=== PATIENT | female | born 1950 | race Caucasian/White ===

== ENCOUNTER 2017-04-16 11:59 | Emergency (ER) | payer MEDICARE, SELFPAY | END 2017-04-16 14:15 | disposition home or self-care (01) | PROVIDERS: Emergency Provider Emergency Medicine; Family Provider Internal Medicine Adolescent Medicine; Visit Provider Emergency Medicine | DX: R55 Syncope and collapse (principal); I10 Essential (primary) hypertension; I25.10 Atherosclerotic heart disease of native coronary artery without angina pectoris; J44.9 Chronic obstructive pulmonary disease, unspecified; Z72.0 Tobacco use; Z79.899 Other long term (current) drug therapy | CPT/HCPCS: 70450; 71020; 80053; 81001; 84484; 85025; 93005; 93041; 96365; 99285 ==

== ENCOUNTER → 2017-04-16 | Outpatient (CLI) | payer MEDICARE, SELFPAY | PROVIDERS: Family Provider Internal Medicine Adolescent Medicine; Visit Provider Internal Medicine Adolescent Medicine | DX: R60.0 Localized edema (principal) | CPT/HCPCS: 93971 ==

== ENCOUNTER → 2017-05-19 11:51 | Outpatient (CLI) | payer MEDICARE, SELFPAY ==
[2017-05-19 13:58] LABS: Thyroid Stimulating Hormone 0.89 uIU/ml (0.358-3.740); Triiodothryronine (T3) Uptake 33 % (31-39)
== END ==
PROVIDERS: Family Provider Internal Medicine Adolescent Medicine; PCP Internal Medicine Adolescent Medicine; Visit Provider Physician Assistant
DX: I25.10 Atherosclerotic heart disease of native coronary artery without angina pectoris (principal); K21.9 Gastro-esophageal reflux disease without esophagitis; K27.9 Peptic ulcer, site unspecified, unspecified as acute or chronic, without hemorrhage or perforation; E78.5 Hyperlipidemia, unspecified
CPT/HCPCS: 36415; 84436; 84443; 84479

== ENCOUNTER → 2017-09-28 10:47 | Outpatient (CLI) | payer MEDICARE, SELFPAY ==
[2017-09-28 13:30] LABS: Basophils % 0.5 % (0.1-2.0); Eosinophils # 0.2 K/mm3 (0.0-0.4); Eosinophils % 3.4 % (0.1-12.0); Hematocrit 47.5 % (37.0-47.0); Hemoglobin 14.5 g/dL (12.2-16.2); Lymphocytes # 1.2 K/mm3 (0.7-4.5); Lymphocytes % 20.7 K/mm3 (10-50); Mean Corpuscular HGB Conc 30.6 g/dL (31.8-35.4); Mean Corpuscular Hemoglobin 30.1 pg (27.0-31.2); Mean Corpuscular Volume 98.4 fl (81-99); Mean Platelet Volume 7.2 fl (7.4-10.4); Monocytes # 0.3 K/mm3 (0.1-1.0); Monocytes % 5.6 % (1.7-9.3); Neutrophils % 69.9 % (37.0-80.0); Platelet Count 224 K/mm3 (142-424); Red Blood Count 4.83 M/mm3 (4.20-5.40); Red Cell Distribution Width 13.2 % (11.5-17.5); White Blood Count 5.8 K/mm3 (4.8-10.8)
[2017-09-28 13:43] LABS: Alanine Aminotransferase 17 U/L (12-78); Albumin Level 3.8 gm/dL (3.4-5.0); Alkaline Phosphatase 105 U/L (46-116); Anion Gap 11.4 mEq/L (5-15); Aspartate Amino Transferase 13 U/L (15-37); Bilirubin,Total 0.5 mg/dL (0.2-1.0); Blood Urea Nitrogen 20 mg/dL (7-18); Calcium 9.5 mg/dL (8.5-10.1); Carbon Dioxide 29 mmol/L (21.0-32.0); Chloride 102 mmol/L (98-107); Chol/HDL Ratio 2.3 (1-3.5); Cholesterol 135 mg/dL (140-200); Creatinine,Serum 0.86 mg/dL (0.55-1.02); Estimated Glomerular Filt Rate 66 ml/min (>60); GFR (African American) 79 ML/MIN (>60); Globulin 3.7 gm/dl (1.3-3.2); Glucose 103 mg/dL (74-106); HDL Cholesterol 59 mg/dL (29-89); LDL Cholesterol 62 mg/dL (0-130); Potassium 4.4 mmoL/L (3.5-5.1); Sodium 138 mmol/L (136-145); Thyroid Stimulating Hormone 1.02 uIU/ml (0.358-3.740); Total Protein,Serum 7.5 gm/dL (6.4-8.2); Triglycerides 72 mg/dL (30-200); VLDL Cholesterol 14 mg/dL (0-40)
== END ==
PROVIDERS: Visit Provider Internal Medicine Adolescent Medicine
DX: I25.10 Atherosclerotic heart disease of native coronary artery without angina pectoris (principal); R53.81 Other malaise; R10.84 Generalized abdominal pain
CPT/HCPCS: 36415; 80053; 80061; 84443; 85025

== ENCOUNTER → 2017-10-07 08:58 | Outpatient (CLI) | payer MEDICARE, SELFPAY ==
--- NOTE | 2017-10-07 08:59 | CT_ITS ---
CT abdomen pelvis w con CLINICAL INDICATION: ITS.REASON: Generalized abdominal pain ORDERING PHYSICIAN: Bernard Farrell MD PATIENT AGE: 67 years COMPARISON: None TECHNIQUE: Axial images obtained with sagittal and coronal reformats. All CT scans at the facility use one or more dose reduction, viz: automated exposure control; ma/kV adjustment per patient size (including targeted exams where dose is matched to indication; i.e. head); or iterative reconstruction technique. PROCEDURE: Oral Contrast: Redicat IV Contrast: 75 mL's of Isovue-370. FINDINGS: Lung bases are clear. The liver, spleen, adrenal glands, gallbladder, pancreas, and kidneys have an unremarkable appearance. Unremarkable appearing appendix. No intestinal obstruction or free air. No evidence of diverticulitis or appendicitis there are a few colonic diverticula. No pelvic mass or focal inflammatory change. There has been a prior hysterectomy. No abnormal fluid collections. Atheromatous changes of the aortoiliac vessels without evidence of aneurysm. Mild degenerative changes lumbar spine with grade 1 nonspondylolytic spondylolisthesis of L4 on L5 facet arthritic changes at that level and also at L5-S1. IMPRESSION: No acute abdominal or pelvic findings.
== END ==
PROVIDERS: Family Provider Internal Medicine Adolescent Medicine; PCP Internal Medicine Adolescent Medicine; Visit Provider Surgery
DX: R10.9 Unspecified abdominal pain (principal)
CPT/HCPCS: 74177; Q9967

== ENCOUNTER → 2017-10-12 08:47 | Outpatient (CLI) | payer MEDICARE, SELFPAY ==
--- NOTE | 2017-10-12 08:48 | US_ITS ---
US gallbladder HISTORY: Nausea and pain ITS.REASON: Nausea ORDERING PHYSICIAN: Bernard Farrell MD PATIENT AGE: 67 years Comparison: None FINDINGS: PANCREAS: Unremarkable. No obvious mass or abnormal fluid collection. No ductal dilatation LIVER: No focal liver lesions demonstrated. Homogeneous echogenicity. No intrahepatic biliary ductal dilatation evident RIGHT KIDNEY: Unremarkable. Normal size and echogenicity. No hydronephrosis GALLBLADDER: No gallstones, gallbladder wall thickening, pericholecystic fluid, or biliary dilatation. IMPRESSION: Negative gallbladder/right upper quadrant ultrasound
== END ==
PROVIDERS: Family Provider Internal Medicine Adolescent Medicine; PCP Internal Medicine Adolescent Medicine; Visit Provider Surgery
DX: R10.9 Unspecified abdominal pain (principal); R11.0 Nausea
CPT/HCPCS: 76705

== ENCOUNTER 2018-05-21 15:24 | Observation (INO) ==
--- NOTE | 2018-05-21 17:08 | History & Physical Report ---
*Admission Date: 05/21/18 *Chief complaint: Shortness of breath, weakness and urinary frequency *History of present illness: 68 year old female with a history of CAD, HTN, COPD, anxiety and hyperlipidemia presented to PCP office with shortness of breath, weakness, dizziness and urinary frequency. Patient was treated for COPD exac with Levaquin and prednisone approx one month ago. She reports shortness of breath and cough have not improved and have worsened over the last week. Oral intake has been decrea sed. Patient states she began having urinary frequency and "strong smelling urine" a few days ago. No fevers. + loss of appetite, minimal oral intake the last few day. + nausea, no vomiting or diarrhea. In the office, she was found to be orthostatic, sitting SBP 78 with dry oral membranes. Saturations 92% on room. Urinalysis + for UTI. Patient was admitted for IV antibiotics, IVF's and further evaluation. [facility] History I have reviewed the patient's past medical history: Yes Medical History: Reports:: Anxiety, Chronic Obstructive Pulmonary Disease (COPD), Coronary Artery Disease, Cerebrovascular Accident, Depression, Hyperlipidemia, Hypertension, Lung Disease Denies:: Diabetes Mellitus Type 1, Diabetes Mellitus Type 2, Internal Pacemaker, Seizures Have you ever received a pneumonia vaccine?: No Have you received a flu vaccine this season?: No Other Medical History: Reports: Arthritis, Other Other Surgeries: Yes: Colonoscopy (11/17/17), EGD (11/17/17), Hysterectomy-Total, Other. No: Pacemaker Amputation: No Fractures: No - *Social History Smoking Status: Current every day smoker Tobacco Type: cigarettes # Packs/Day (cigarettes): 1 Alcohol Intake: never Alcohol Intake Frequency:: other Substance Use Type: denies use Travel in the last 8 weeks: None - Psychiatric History Expresses thoughts of harming self/others: None Pschychiatric History:: Reports:: Anxiety, Depression *Family Hx:: Non-contributory Review of Systems - Review of Systems Review of systems:: pertinent systems reviewed and negative unless documented below - Constitutional Reports malaise, Reports weakness - *Respiratory Reports chest congestion, Reports cough, Reports shortness of breath, Reports wheezing - *Gastrointestinal Reports nausea - *Genitourinary Reports urinary urgency, Reports other (urinary frequency) Meds Home Medications Medication Instructions Recorded Confirmed Type alprazolam 1 mg tablet 1 mg PO TID tab 05/18/17 11/17/17 History aspirin 81 mg tablet,delayed 81 mg PO QDAY 05/18/17 11/17/17 History release duloxetine 30 mg capsule,delayed 30 mg PO QDAY 05/18/17 11/17/17 History release lisinopril 5 mg tablet 5 mg PO QDAY 05/18/17 11/17/17 History trazodone 150 mg tablet 150 mg PO QHS 05/18/17 11/17/17 History Amlodipine Besylate [Norvasc 5mg 5 mg PO QDAY 11/17/17 11/17/17 History tablet] Atorvastatin Calcium [Lipitor 40mg 40 mg PO QDAY 11/17/17 11/17/17 History Tablet] omeprazole 40 mg capsule,delayed 40 mg PO DAILY #90 cap 12/07/17 Rx release ranolazine ER 500 mg 500 mg PO BID #60 tab 12/22/17 Rx tablet,extended release,12 hr clopidogrel 75 mg tablet 75 mg PO QDAY #30 tab 02/03/18 Rx Allergies Allergy/AdvReac Type Severity Reaction Status Date / Time promethazine Allergy Unknown Verified 11/17/17 12:13 Exam Narrative: ALert and oriented x 3. Rate and rhythm regular. No LE edema. Lung sounds with crackles LLL. Abdomen soft and nontender. + CVA tenderness. ENT- mucous membranes dry. + orthostasis. No acute neuro deficits. SKin pink, warm and dry Assessment and Plan (1) COPD exacerbation Current visit: Yes Status: Acute Category: Medical Code(s): J44.1 - Chronic obstructive pulmonary disease with (acute) exacerbation (2) Hypertensive disorder Current visit: No Status: Chronic Qualifiers: Category: Medical Code(s): I10 - Essential (primary) hypertension (3) UTI (urinary tract infection) Current visit: Yes Status: Acute Category: Medical Code(s): N39.0 - Urinary tract infection, site not specified - Assessment and plan all Dx Assessment and Plan for all problems:: Admit to medsurg on CAP protocol with ceftriaxone and azithromycin which will cover UTI, as well. Mcgregor cultures ordered. Will evaluate labs. Bolus with normal saline for orthostasis. Hold antihypertensives.
[2018-05-21 18:36] LABS: Basophils % 0.6 % (0.1-2.0); Eosinophils # 0.1 K/mm3 (0.0-0.4); Eosinophils % 0.9 % (0.1-12.0); Hematocrit 40.5 % (37.0-47.0); Hemoglobin 12.7 g/dL (12.2-16.2); Lymphocytes # 1.8 K/mm3 (0.7-4.5); Lymphocytes % 24.9 % (10-50); Mean Corpuscular HGB Conc 31.4 g/dL (31.8-35.4); Mean Corpuscular Hemoglobin 31.2 pg (27.0-31.2); Mean Corpuscular Volume 99.3 fl (81-99); Mean Platelet Volume 7.3 fl (7.4-10.4); Monocytes # 0.6 K/mm3 (0.1-1.0); Monocytes % 8.5 % (1.7-9.3); Neutrophils # 4.8 K/mm3 (1.8-7.8); Neutrophils % 65.1 % (37.0-80.0); Platelet Count 225 K/mm3 (142-424); Red Blood Count 4.08 M/mm3 (4.20-5.40); Red Cell Distribution Width 12.7 % (11.5-17.5); White Blood Count 7.4 K/mm3 (4.8-10.8)
[2018-05-21 18:46] LABS: Albumin Level 3.1 gm/dL (3.4-5.0); Albumin/Globulin Ratio 0.7 (1.1-1.8); Bilirubin,Total 0.5 mg/dL (0.2-1.0); Globulin 4.4 gm/dl (1.3-3.2); Total Protein,Serum 7.5 gm/dL (6.4-8.2)
[2018-05-22 06:19] LABS: Basophils % 0.5 % (0.1-2.0); Eosinophils # 0.1 K/mm3 (0.0-0.4); Hematocrit 38.5 % (37.0-47.0); Hemoglobin 11.9 g/dL (12.2-16.2); Lymphocytes # 1.7 K/mm3 (0.7-4.5); Mean Corpuscular HGB Conc 30.8 g/dL (31.8-35.4); Mean Corpuscular Hemoglobin 31.6 pg (27.0-31.2); Mean Corpuscular Volume 102.5 fl (81-99); Monocytes # 0.6 K/mm3 (0.1-1.0); Monocytes % 9.2 % (1.7-9.3); Neutrophils # 3.9 K/mm3 (1.8-7.8); Neutrophils % 61.4 % (37.0-80.0); Platelet Count 183 K/mm3 (142-424); Red Blood Count 3.76 M/mm3 (4.20-5.40); Red Cell Distribution Width 12.8 % (11.5-17.5); White Blood Count 6.3 K/mm3 (4.8-10.8)
[2018-05-22 06:41] LABS: Albumin Level 2.6 gm/dL (3.4-5.0); Albumin/Globulin Ratio 0.7 (1.1-1.8); Anion Gap 11.3 mEq/L (5-15); Bilirubin,Total 0.4 mg/dL (0.2-1.0); Calcium 8.6 mg/dL (8.5-10.1); Globulin 3.9 gm/dl (1.3-3.2); Potassium 4.3 mmoL/L (3.5-5.1); Total Protein,Serum 6.5 gm/dL (6.4-8.2)
--- NOTE | 2018-05-22 08:22 | Progress Note ---
Internal Medicine - PN: Subj *Date: 05/22/18 *Time: 08:19 Interval history: Feels a little better than she did yesterday evening. Her blood pressure has improved slightly. She is alert. Oriented x3. Has eaten some breakfast and drank coffee. She had an episode last night after a DuoNeb treatment with upper lip tingling and numbness that was symmetric. We changed nebulizer treatments to Xopenex. She now reports that she has a tingling sensation over the entire upper half of her face, symmetric from right to left. Denies swallowing problems, visual problems or hearing problems. Exam Vital signs and Labs for Last 24 Hours: Temp Pulse Resp BP Pulse Ox 98.0 F 94 H 18 105/58 L 90 L 05/22/18 07:33 05/22/18 07:33 05/22/18 07:33 05/22/18 07:33 05/22/18 07:33 Laboratory Results - last 24 hr 05/21/18 18:17: WBC 7.4, RBC 4.08 L, Hgb 12.7, Hct 40.5, MCV 99.3 H, MCH 31.2, MCHC 31.4 L, RDW 12.7, Plt Count 225, MPV 7.3 L, Neut % (Auto) 65.1, Lymph % (Auto) 24.9, Gage % (Auto) 8.5, Eos % (Auto) 0.9, Baso % (Auto) 0.6, Neut # (Auto) 4.8, Lymph # (Auto) 1.8, Gage # (Auto) 0.6, Eos # (Auto) 0.1, Baso # (Auto) 0.0 05/21/18 18:17: Sodium 133 L, Potassium 4.0, Chloride 97 L, Carbon Dioxide 28, Anion Gap 12.0, BUN 22 H, Creatinine 1.09 H, Estimated Creat Clear 62, Estimated GFR 50 L, Est GFR ( Amer) 60, Glucose 108 H, Calcium 9.0, Total Bilirubin 0.5, AST 17, ALT 19, Alkaline Phosphatase 92, Total Protein 7.5, Albumin 3.1 L, Globulin 4.4 H, Albumin/Globulin Ratio 0.7 L 05/22/18 06:11: WBC 6.3, RBC 3.76 L, Hgb 11.9 L, Hct 38.5, MCV 102.5 H, MCH 31.6 H, MCHC 30.8 L, RDW 12.8, Plt Count 183, MPV 8.0, Neut % (Auto) 61.4, Lymph % (Auto) 27.0, Gage % (Auto) 9.2, Eos % (Auto) 2.0, Baso % (Auto) 0.5, Neut # (Auto) 3.9, Lymph # (Auto) 1.7, Gage # (Auto) 0.6, Eos # (Auto) 0.1, Baso # (Auto) 0.0 05/22/18 06:11: Sodium 138, Potassium 4.3, Chloride 103, Carbon Dioxide 28, Anion Gap 11.3, BUN 13 D, Creatinine 0.79 D, Estimated Creat Clear 67, Estimated GFR 72, Est GFR ( Amer) 87 D, Glucose 123 H, Calcium 8.6, Total Bilirubin 0.4, AST 13 L, ALT 16, Alkaline Phosphatase 78, Total Protein 6.5, Albumin 2.6 L D, Globulin 3.9 H, Albumin/Globulin Ratio 0.7 L I & O for Last 24 hours: Intake & Output 05/19/18 05/20/18 05/21/18 05/22/18 11:59 11:59 11:59 11:59 Intake Total 240 / 240 Balance 240 / 240 Weight 176 lb 6 oz Microbiology Reports for the Last 24 Hours: Microbiology 05/21/18 19:50 Sputum - Expectorated Sputum Gram Stain - Final Narrative: Is awake. Alert. Oriented x3, up on the side of the bed. Vital signs reviewed. Cranial nerves are intact bilaterally including extraocular motions, pupillary reactivity and facial grimacing and all 3 facial nerve branches are symmetrically functioning. Lungs have good air movement, some wheezing and rhonchi that scattered throughout, especially in both bases. Heart rate regular. She has trace ankle edema at baseline. Abdomen is soft and nontender. She has no skin rash. She able to move arms and legs well and symmetrically in the extremities. Assessment and Plan (1) COPD exacerbation Current visit: Yes Status: Acute Category: Medical Code(s): J44.1 - Chronic obstructive pulmonary disease with (acute) exacerbation Overall improving. Changed to Xopenex treatments. Await culture results. Continue current broad-spectrum antibiotics. Add steroids for the wheezing component (2) Hypertensive disorder Current visit: No Status: Chronic Qualifiers: Category: Medical Code(s): I10 - Essential (primary) hypertension Blood pressure has improved with fluids. Continue to hold antihypertensives. (3) UTI (urinary tract infection) Current visit: Yes Status: Acute Category: Medical Code(s): N39.0 - Urinary tract infection, site not specified Continue antibiotics. Culture from office pending (4) Tingling sensation in face Current visit: Yes Status: Acute Category: Medical Code(s): R20.2 - Paresthesia of skin Does not seem to be neurologic. Magnesium supplementation intravenously. Continue treatment of underlying medical conditions.
[2018-05-22 09:19] LABS: Microscopic, Urine URINE MICROSCOPIC (MICROSCOPIC)
[2018-05-22 09:21] LABS: Appearance,Urine CLEAR (Clear); Bilirubin,Urine Negative (Negative); Blood, Urine TRACE-I (Negative); Color,Urine YELLOW (Yellow); Glucose,Urine (UA) Negative (Negative); Ketones,Urine Negative (Negative); Leukocyte Esterase,Urine Negative (Negative); Protein,Urine Negative (Negative); Specific Gravity, Urine <= 1.005 (1.005-1.030)
[2018-05-22 10:06] LABS: Bacteria,Urine Trace /lpf; RBC,Urine Occasional #/hpf (0-3)
--- NOTE | 2018-05-22 11:00 | Pharmacy Consult Notes ---
[facility] Pharmacy VTE Monitoring - Patient Demographics Admission date: 05/21/18 Report Date: 05/22/18 Time: 11:00 Allergies/Adverse Reactions: Patient Allergies promethazine Allergy (Unknown, Verified 11/17/17 12:13) Height: 1.75 m Weight: 80.002 kg Patient Problems: Current Active Problems COPD exacerbation (Acute) UTI (urinary tract infection) (Acute) Tingling sensation in face (Acute) - VTE Risk Labs: VTE Related Lab Results Hgb 11.9 g/dL (12.2-16.2) L 05/22/18 06:11 Hct 38.5 % (37.0-47.0) 05/22/18 06:11 Plt Count 183 K/mm3 (142-424) 05/22/18 06:11 BUN 13 mg/dL (7-18) D 05/22/18 06:11 Creatinine 0.79 mg/dL (0.55-1.02) D 05/22/18 06:11 Estimated Creat Clear 67 mL/min (50-200) 05/22/18 06:11 Was VTE Risk Assessment Performed: Yes VTE Score: 3 VTE Risk Level: Low Risk - Prophylaxis VTE Prophylaxis Ordered?: Yes Types of VTE Prophylaxis: TEDS Knee High Location of Applied Device: Bilateral Lower Extremeties
[2018-05-23 06:20] LABS: Basophils % 0.1 % (0.1-2.0); Hematocrit 37.2 % (37.0-47.0); Hemoglobin 11.6 g/dL (12.2-16.2); Lymphocytes # 0.7 K/mm3 (0.7-4.5); Lymphocytes % 10.9 % (10-50); Mean Corpuscular HGB Conc 31.1 g/dL (31.8-35.4); Mean Corpuscular Hemoglobin 31.3 pg (27.0-31.2); Mean Corpuscular Volume 100.6 fl (81-99); Mean Platelet Volume 7.6 fl (7.4-10.4); Monocytes # 0.2 K/mm3 (0.1-1.0); Neutrophils # 5.7 K/mm3 (1.8-7.8); Platelet Count 182 K/mm3 (142-424); Red Blood Count 3.69 M/mm3 (4.20-5.40); Red Cell Distribution Width 12.6 % (11.5-17.5); White Blood Count 6.6 K/mm3 (4.8-10.8)
[2018-05-23 06:32] LABS: Hypochromasia 1+; Lymphocytes % 7 % (10-50); Macrocytosis 1+; Monocytes % 2 % (2-9); Neutrophils % 83 % (42-76); Total Cells Counted 100
[2018-05-23 06:36] LABS: Albumin Level 2.3 gm/dL (3.4-5.0); Albumin/Globulin Ratio 0.6 (1.1-1.8); Anion Gap 10.8 mEq/L (5-15); Bilirubin,Total 0.2 mg/dL (0.2-1.0); Calcium 9.2 mg/dL (8.5-10.1); Globulin 3.7 gm/dl (1.3-3.2); Potassium 4.8 mmoL/L (3.5-5.1)
--- NOTE | 2018-05-23 08:47 | Progress Note ---
Internal Medicine - PN: Subj *Date: 05/23/18 *Time: 08:44 Interval history: Patient feels somewhat better, but continues to be orthostatic when she stands up according to her report. No orthostatic vital signs are documented this morning. She also continues to have an oxygen requirement for O2 saturations of 89% on room air. She also states that the facial numbness that I discussed yesterday has not gone away and that it spread now symmetrically up into her scalp and she feels like her hair is "floating." She also notes that she is very concerned about the chest pressure feeling that she had when she was coughing and wonders about seeing cardiology. Exam Vital signs and Labs for Last 24 Hours: Temp Pulse Resp BP Pulse Ox 97.8 F 89 20 140/82 90 L 05/23/18 04:00 05/23/18 06:21 05/23/18 04:00 05/23/18 04:00 05/23/18 06:21 Laboratory Results - last 24 hr 05/22/18 09:15: Urine Color Yellow, Urine Appearance Clear, Urine pH 6.0, Ur Specific [place] <= 1.005, Urine Protein Negative, Urine Glucose (UA) Negative, Urine Ketones Negative, Urine Blood Trace-i, Urine Nitrate Negative, Urine Bilirubin Negative, Urine Urobilinogen 1.0, Ur Leukocyte Esterase Negative, Urine RBC Occasional, Urine WBC 3-5, Ur Squamous Epith Cells 3-5, Urine Bacteria Trace 05/23/18 06:09: WBC 6.6, RBC 3.69 L, Hgb 11.6 L, Hct 37.2, MCV 100.6 H, MCH 31.3 H, MCHC 31.1 L, RDW 12.6, Plt Count 182, MPV 7.6, Neut % (Auto) 86.0 H, Lymph % (Auto) 10.9, [place] % (Auto) 3.0, Eos % (Auto) 0.0 L, Baso % (Auto) 0.1, Neut # (Auto) 5.7, Lymph # (Auto) 0.7, [place] # (Auto) 0.2, Eos # (Auto) 0.0, Baso # (Auto) 0.0, Total Counted 100, Neutrophils % (Manual) 83 H, Band Neutrophils % 8.0, Lymphocytes % (Manual) 7 L, Monocytes % (Manual) 2, Platelet Estimate Normal, Hypochromasia 1+, Macrocytosis 1+ 05/23/18 06:09: Sodium 140, Potassium 4.8, Chloride 105, Carbon Dioxide 29, Anion Gap 10.8, BUN 19 H D, Creatinine 0.96 D, Estimated Creat Clear 67, Estimated GFR 58 L, Est GFR ( Amer) 70, Glucose 167 H D, Calcium 9.2, Total Bilirubin 0.2, AST 24 D, ALT 31 D, Alkaline Phosphatase 82, Total Protein 6.0 L, Albumin 2.3 L D, Globulin 3.7 H, Albumin/Globulin Ratio 0.6 L I & O for Last 24 hours: Intake & Output 05/20/18 05/21/18 05/22/18 05/23/18 11:59 11:59 11:59 11:59 Intake Total 720 / 720 240 / 240 Output Total 300 / 300 400 / 400 Balance 420 / 420 -160 / -160 Weight 176 lb 6 oz Microbiology Reports for the Last 24 Hours: Microbiology 05/21/18 19:50 Sputum - Expectorated Sputum Gram Stain - Final 05/21/18 19:50 Sputum - Expectorated Sputum Sputum Culture - Final Normal Respiratory Chrystal Narrative: Patient is alert, oriented x3. No neurologic deficiencies in her cranial nerves whatsoever, they are symmetric and normal. Sensation to light touch is normal. She moves all extremities well. Heart rate regular. Lungs have rhonchi in the upper lung regal[place] but good air movement. O2 saturations are in the high 80% range on room air according to documentation. Abdomen soft and nontender. No edema or clubbing. Assessment and Plan (1) COPD exacerbation Current visit: Yes Status: Acute Category: Medical Code(s): J44.1 - Chronic obstructive pulmonary disease with (acute) exacerbation Overall improving. O2 requirement continues. Recheck chest x-ray today. Sputum culture nondiagnostic (2) Hypertensive disorder Current visit: No Status: Chronic Qualifiers: Category: Medical Code(s): I10 - Essential (primary) hypertension Blood pressure is normalized at rest off blood pressure medication. Check orthostatics today. (3) UTI (urinary tract infection) Current visit: Yes Status: Acute Category: Medical Code(s): N39.0 - Urinary tract infection, site not specified On antibiotics, await culture results (4) Tingling sensation in face Current visit: Yes Status: Acute Category: Medical Code(s): R20.2 - Paresthesia of skin CT scan of head today. Seems to be paresthesia related versus medicine effect versus anxiety? (5) Chest pressure Current visit: Yes Status: Acute Category: Medical Code(s): R07.89 - Other chest pain Check cardiac enzymes for morning labs. Cardiology consult tomorrow.
[2018-05-24 07:20] LABS: Anion Gap 11.6 mEq/L (5-15); Calcium 9.4 mg/dL (8.5-10.1); Potassium 4.6 mmoL/L (3.5-5.1)
[2018-05-24 07:25] LABS: Basophils % 0.1 % (0.1-2.0); Eosinophils % 0.1 % (0.1-12.0); Hematocrit 42.6 % (37.0-47.0); Hemoglobin 12.8 g/dL (12.2-16.2); Lymphocytes # 1.2 K/mm3 (0.7-4.5); Lymphocytes % 7.8 % (10-50); Mean Corpuscular HGB Conc 30.1 g/dL (31.8-35.4); Mean Corpuscular Hemoglobin 30.9 pg (27.0-31.2); Mean Corpuscular Volume 102.6 fl (81-99); Mean Platelet Volume 7.9 fl (7.4-10.4); Monocytes # 0.5 K/mm3 (0.1-1.0); Monocytes % 3.3 % (1.7-9.3); Neutrophils % 88.7 % (37.0-80.0); Platelet Count 272 K/mm3 (142-424); Red Blood Count 4.15 M/mm3 (4.20-5.40); Red Cell Distribution Width 12.6 % (11.5-17.5); White Blood Count 15.8 K/mm3 (4.8-10.8)
--- NOTE | 2018-05-24 07:55 | Consult Report ---
Addendum entered and electronically signed by LIZETT Alva 05/24/18 14:06: Cardiac cath showed ostial proximal Left Main stenosis for which a TERESA was placed with excellent results. Continue ASA and plavix. Observe overnight with plans to discharge home in AM. Original Note: History of Present Illness Consult date: 05/24/18 Requesting physician: Red Koehler Consult reason: chest pain Chief complaint: Chest pain, elevated troponin Additional Medical History:: 1. CAD A. Cardiac cath, 06/2016, IMPRESSION: 1. Moderate nonflow limiting ostial left main disease 2. Severe disease in the proximal to mid LAD 3. Successful stenting of the proximal to mid LAD severe disease reduced to 0% with 2 drug-eluting stents as described above 4. Chronically occluded proximal dominant right coronary artery with large extensive collateralization to the distal right coronary artery via a large Kugel collateral off the circumflex artery 5. Normal ejection fraction 6. Normal left ventricular end-diastolic pressure PLAN: 1. Brilinta and aspirin 2. LDL less than 70 3. Risk factor modification 4. Given the extensive collateralization to the right coronary artery it would not be clinically appropriate to open this chronically occluded right coronary artery. This vessel is best treated medically 2. Tobacco use A. COPD 3. Hypertension 4. Hyperlipidemia 5. Carotid artery disease A. History of CVA prior to right CEA many years ago History of present illness: 68-year-old white female with known coronary disease and previous coronary artery stenting in June 2016 to her LAD was admitted for exacerbation of COPD. During her hospital stay the patient did relate an episode of chest pain with left arm pain the night prior to admission. During her hospitalization, patient has continued to have left-sided discomfort which has persisted since her coronary stenting in early 2016. Cardiac enzyme was obtained with elevated tro ponin noted. Cardiology consulted for evaluation. Patient has continued on dual antiplatelet therapy since her stenting in early 2016. She does continue to smoke. Due to symptomatic hypotension, patient's antihypertensive medications and antianginal medications and help while IV fluids have given with improvement in the patient's blood pressure. [facility] History Medical History: Reports:: Anxiety, Chronic Obstructive Pulmonary Disease (COPD), Coronary Artery Disease, Cerebrovascular Accident, Depression, Hyperlipidemia, Hypertension, Lung Disease Denies:: Diabetes Mellitus Type 1, Diabetes Mellitus Type 2, Internal Pacemaker, Seizures Have you ever received a pneumonia vaccine?: No Have you received a flu vaccine this season?: No Other Medical History: Reports: Arthritis, Other Other Surgeries: Yes: Colonoscopy (11/17/17), EGD (11/17/17), Hysterectomy-Total, Other. No: Pacemaker Amputation: No Fractures: No - *Social History Smoking Status: Current every day smoker Tobacco Type: cigarettes # Packs/Day (cigarettes): 20 Alcohol Intake: never Alcohol Intake Frequency:: other Substance Use Type: denies use Occupational Status: disabled Travel in the last 8 weeks: None - Psychiatric History Expresses thoughts of harming self/others: None Suicide Plan Description: No Plan Pschychiatric History:: Reports:: Anxiety, Depression *Family Hx:: Non-contributory Meds Home Medications Medication Instructions Recorded Confirmed Type alprazolam 1 mg tablet 1 mg PO TID tab 05/18/17 05/22/18 History aspirin 81 mg tablet,delayed 81 mg PO DAILY 05/18/17 05/22/18 History release duloxetine 30 mg capsule,delayed 30 mg PO HS 05/18/17 05/22/18 History release lisinopril 5 mg tablet 5 mg PO DAILY 05/18/17 05/22/18 History Atorvastatin Calcium [Lipitor 40mg 40 mg PO HS 11/17/17 05/22/18 History Tablet] Albuterol Sulfate [Albuterol HFA 2 puffs IH QIDP PRN 05/22/18 05/22/18 History Inhaler] Clopidogrel Bisulfate [Plavix 75mg 75 mg PO DAILY 05/22/18 05/22/18 History Tab] Omeprazole [Omeprazole 40mg 40 mg PO DAILY 05/22/18 05/22/18 History Capsule] Ondansetron HCl [Ondansetron 4mg 4 mg PO Q8HP PRN 05/22/18 05/22/18 History Tablet] Tiotropium [place]tt [Spiriva 2 puffs IH DAILY 05/22/18 05/22/18 History Respimat] Trazodone HCl 200 mg PO HS 05/22/18 05/22/18 History raNITIdine HCl [Ranitidine HCl] 300 mg PO BID 05/22/18 05/22/18 History Allergies Allergy/AdvReac Type Severity Reaction Status Date / Time promethazine Allergy Unknown Verified 11/17/17 12:13 Review of Systems - *Cardiovascular Reports chest pain, Reports shortness of breath with activity - *Respiratory Reports cough, Reports shortness of breath, Reports shortness of breath with activity - *Gastrointestinal Reports abdominal pain, Denies loose stools - *Genitourinary Denies blood in urine - *Musculoskeletal Reports muscle weakness - *Neurologic Reports weakness Exam Vital signs and Labs for Last 24 Hours: Temp Pulse Resp BP Pulse Ox 97.6 F 88 20 118/65 95 05/24/18 04:00 05/24/18 05:54 05/24/18 04:00 05/24/18 04:00 05/24/18 05:54 Laboratory Results - last 24 hr 05/23/18 06:09: Total Creatine Kinase 84, CK-MB (CK-2) 3.0, CK-MB (CK-2) Rel Index 3.6, Troponin I 0.34 H 05/24/18 06:51: WBC 15.8 H D, RBC 4.15 L, Hgb 12.8, Hct 42.6, MCV 102.6 H, MCH 30.9, MCHC 30.1 L, RDW 12.6, Plt Count 272 D, MPV 7.9, Neut % (Auto) 88.7 H, Lymph % (Auto) 7.8 L, [place] % (Auto) 3.3, Eos % (Auto) 0.1, Baso % (Auto) 0.1, Neut # (Auto) 14.0 H, Lymph # (Auto) 1.2, [place] # (Auto) 0.5, Eos # (Auto) 0.0, Baso # (Auto) 0.0 05/24/18 06:51: Sodium 141, Potassium 4.6, Chloride 105, Carbon Dioxide 29, Anion Gap 11.6, BUN 23 H, Creatinine 1.00, Estimated Creat Clear 67, Estimated GFR 55 L, Est GFR ( Amer) 67, Glucose 138 H, Calcium 9.4 I & O for Last 24 hours: Intake & Output 05/21/18 05/22/18 05/23/18 05/24/18 11:59 11:59 11:59 11:59 Intake Total 720 / 720 480 / 480 240 / 240 Output Total 300 / 300 400 / 400 Balance 420 / 420 80 / 80 240 / 240 Weight 176 lb 6 oz Microbiology Reports for the Last 24 Hours: Microbiology 05/21/18 18:17 Blood Blood Culture - Preliminary NO GROWTH AFTER 48 HOURS 05/21/18 18:17 Blood Blood Culture - Preliminary NO GROWTH AFTER 48 HOURS 05/22/18 09:15 Urine,Clean Catch Urine Culture - Preliminary NO GROWTH AFTER 24 HOURS 05/21/18 19:50 Sputum - Expectorated Sputum Gram Stain - Final 05/21/18 19:50 Sputum - Expectorated Sputum Sputum Culture - Final Normal Respiratory Chrystal - *Routine HEENT Exam Head: Present: normocephalic Eye: Present: EOMI, PERRL ENT: Present: mucous membranes moist - *Routine Neck Exam Present: supple. Absent: JVD, carotid bruit - *Routine Respiratory Exam Present: decreased breath sounds, diminished air movement. Absent: accessory muscle use, rales, rhonchi, wheezes - *Routine Cardiovascular Exam Present: RRR. Absent: murmur, gallop, rubs - *Routine Abdominal Exam Present: soft. Absent: tenderness, distended, guarding - *Routine Extremities Exam Absent: edema, calf tenderness - *Routine Neurological Exam Present: alert, oriented X3, moving all extremities Assessment and Plan (1) Elevated troponin Current visit: Yes Status: Acute Category: Medical Code(s): R74.8 - Abnormal levels of other serum enzymes (2) Chest pressure Current visit: Yes Status: Acute Category: Medical Code(s): R07.89 - Other chest pain (3) COPD exacerbation Current visit: Yes Status: Acute Category: Medical Code(s): J44.1 - Chronic obstructive pulmonary disease with (acute) exacerbation (4) Hypertensive disorder Current visit: No Status: Chronic Qualifiers: Category: Medical Code(s): I10 - Essential (primary) hypertension (5) UTI (urinary tract infection) Current visit: Yes Status: Acute Category: Medical Code(s): N39.0 - Urinary tract infection, site not specified (6) Tingling sensation in face Current visit: Yes Status: Acute Category: Medical Code(s): R20.2 - Paresthesia of skin (7) Coronary arteriosclerosis Current visit: No Status: Chronic Category: Medical Code(s): I25.10 - Atherosclerotic heart disease of [place] coronary artery without angina pectoris (8) Tobacco dependence syndrome Current visit: No Status: Chronic Category: Medical Code(s): F17.200 - Nicotine dependence, unspecified, uncomplicated - Assessment and plan all Dx Assessment and Plan for all problems:: 1. With chest pain/left arm pain and elevated troponin in pt with known CAD and previous LAD stenting, would recommend proceeding with LHC today. 2. Continue ASA, atorvastatin and plavix. 3. BP has improved off anti-hypertensive and anti-anginal meds. 4. Further recommendations following LHC.
--- NOTE | 2018-05-24 07:56 | Progress Note ---
Internal Medicine - PN: Subj *Date: 05/24/18 *Time: 07:56 Exam Vital signs and Labs for Last 24 Hours: Temp Pulse Resp BP Pulse Ox 97.6 F 88 20 118/65 95 05/24/18 04:00 05/24/18 05:54 05/24/18 04:00 05/24/18 04:00 05/24/18 05:54 Laboratory Results - last 24 hr 05/23/18 06:09: Total Creatine Kinase 84, CK-MB (CK-2) 3.0, CK-MB (CK-2) Rel Index 3.6, Troponin I 0.34 H 05/24/18 06:51: WBC 15.8 H D, RBC 4.15 L, Hgb 12.8, Hct 42.6, MCV 102.6 H, MCH 30.9, MCHC 30.1 L, RDW 12.6, Plt Count 272 D, MPV 7.9, Neut % (Auto) 88.7 H, Lymph % (Auto) 7.8 L, [place] % (Auto) 3.3, Eos % (Auto) 0.1, Baso % (Auto) 0.1, Neut # (Auto) 14.0 H, Lymph # (Auto) 1.2, [place] # (Auto) 0.5, Eos # (Auto) 0.0, Baso # (Auto) 0.0 05/24/18 06:51: Sodium 141, Potassium 4.6, Chloride 105, Carbon Dioxide 29, Anion Gap 11.6, BUN 23 H, Creatinine 1.00, Estimated Creat Clear 67, Estimated GFR 55 L, Est GFR ( Amer) 67, Glucose 138 H, Calcium 9.4 I & O for Last 24 hours: Intake & Output 05/21/18 05/22/18 05/23/18 05/24/18 23:59 23:59 23:59 23:59 Intake Total 240 / 240 720 / 720 480 / 480 Output Total 700 / 700 Balance 240 / 240 480 / 480 Weight 80.002 kg 80.002 kg Microbiology Reports for the Last 24 Hours: Microbiology 05/21/18 18:17 Blood Blood Culture - Preliminary NO GROWTH AFTER 48 HOURS 05/21/18 18:17 Blood Blood Culture - Preliminary NO GROWTH AFTER 48 HOURS 05/22/18 09:15 Urine,Clean Catch Urine Culture - Preliminary NO GROWTH AFTER 24 HOURS 05/21/18 19:50 Sputum - Expectorated Sputum Gram Stain - Final 05/21/18 19:50 Sputum - Expectorated Sputum Sputum Culture - Final Normal Respiratory Chrystal Assessment and Plan (1) COPD exacerbation Current visit: Yes Status: Acute Category: Medical Code(s): J44.1 - Chronic obstructive pulmonary disease with (acute) exacerbation (2) Hypertensive disorder Current visit: No Status: Chronic Qualifiers: Category: Medical Code(s): I10 - Essential (primary) hypertension (3) UTI (urinary tract infection) Current visit: Yes Status: Acute Category: Medical Code(s): N39.0 - Urinary tract infection, site not specified (4) Tingling sensation in face Current visit: Yes Status: Acute Category: Medical Code(s): R20.2 - Par esthesia of skin (5) Chest pressure Current visit: Yes Status: Acute Category: Medical Code(s): R07.89 - Other chest pain The patient's infection will respond to the chosen ABx?: Yes Is the patient receiving the right drug, dose, and route?: Yes Could a more targeted ABx be ordered?: No
--- NOTE | 2018-05-24 08:11 | Progress Note ---
Internal Medicine - PN: Subj *Date: 05/24/18 *Time: 08:07 Interval history: Patient rested comfortably overnight. Continues to have a lot of vague complaints. Exam Vital signs and Labs for Last 24 Hours: Temp Pulse Resp BP Pulse Ox 97.6 F 105 H 18 115/78 91 L 05/24/18 08:00 05/24/18 08:00 05/24/18 08:00 05/24/18 08:00 05/24/18 08:00 Laboratory Results - last 24 hr 05/23/18 06:09: Total Creatine Kinase 84, CK-MB (CK-2) 3.0, CK-MB (CK-2) Rel Index 3.6, Troponin I 0.34 H 05/24/18 06:51: WBC 15.8 H D, RBC 4.15 L, Hgb 12.8, Hct 42.6, MCV 102.6 H, MCH 30.9, MCHC 30.1 L, RDW 12.6, Plt Count 272 D, MPV 7.9, Neut % (Auto) 88.7 H, Lymph % (Auto) 7.8 L, [place] % (Auto) 3.3, Eos % (Auto) 0.1, Baso % (Auto) 0.1, Neut # (Auto) 14.0 H, Lymph # (Auto) 1.2, [place] # (Auto) 0.5, Eos # (Auto) 0.0, Baso # (Auto) 0.0 05/24/18 06:51: Sodium 141, Potassium 4.6, Chloride 105, Carbon Dioxide 29, Anion Gap 11.6, BUN 23 H, Creatinine 1.00, Estimated Creat Clear 67, Estimated GFR 55 L, Est GFR ( Amer) 67, Glucose 138 H, Calcium 9.4 I & O for Last 24 hours: Intake & Output 05/21/18 05/22/18 05/23/18 05/24/18 11:59 11:59 11:59 11:59 Intake Total 720 / 720 480 / 480 600 / 600 Output Total 300 / 300 400 / 400 Balance 420 / 420 80 / 80 600 / 600 Weight 176 lb 6 oz Microbiology Reports for the Last 24 Hours: Microbiology 05/21/18 18:17 Blood Blood Culture - Preliminary NO GROWTH AFTER 48 HOURS 05/21/18 18:17 Blood Blood Culture - Preliminary NO GROWTH AFTER 48 HOURS 05/22/18 09:15 Urine,Clean Catch Urine Culture - Preliminary NO GROWTH AFTER 24 HOURS 05/21/18 19:50 Sputum - Expectorated Sputum Gram Stain - Final 05/21/18 19:50 Sputum - Expectorated Sputum Sputum Culture - Final Normal Respiratory Chrystal Narrative: Alert, oriented x3. Oropharynx clear. Heart rate regular. Minimal rhonchi good air movement. No edema noted. Assessment and Plan (1) COPD exacerbation Current visit: Yes Status: Acute Category: Medical Code(s): J44.1 - Chronic obstructive pulmonary disease with (acute) exacerbation (2) Hypertensive disorder Current visit: No Status: Chronic Qualifiers: Category: Medical Code(s): I10 - Essential (primary) hypertension (3) UTI (urinary tract infection) Current visit: Yes Status: Acute Category: Medical Code(s): N39.0 - Urinary tract infection, site not specified (4) Tingling sensation in face Current visit: Yes Status: Acute Category: Medical Code(s): R20.2 - Paresthesia of skin (5) Chest pressure Current visit: Yes Status: Acute Category: Medical Code(s): R07.89 - Other chest pain - Assessment and plan all Dx Assessment and Plan for all problems:: Agree with cardiology plan. Depending on findings from this study she is able to be discharged from her COPD bronchitis episodes.
[2018-05-24 08:45] LABS: Lymphocytes % 7 % (10-50); Monocytes % 3 % (2-9); Neutrophils % 88 % (42-76); Total Cells Counted 100
[2018-05-24 08:46] LABS: Macrocytosis 1+
[2018-05-25 06:52] LABS: Anion Gap 8.2 mEq/L (5-15); Calcium 8.9 mg/dL (8.5-10.1); Potassium 4.2 mmoL/L (3.5-5.1)
--- NOTE | 2018-05-25 08:18 | Progress Note ---
Subjective Date: 05/25/18 Time: 08:14 Principal diagnosis: CAD Interval history: 68 yo WF in bed in NAD. Denies any chest pain. Wants to go home. Cardiac cath results reviewed with patient and daughter. All questions answered. Exam Vital signs and Labs for Last 24 Hours: Temp Pulse Resp BP Pulse Ox 98.3 F 74 20 140/68 100 05/25/18 04:00 05/25/18 06:00 05/25/18 06:00 05/25/18 06:00 05/25/18 06:00 Laboratory Results - last 24 hr 05/24/18 06:51: Total Counted 100, Neutrophils % (Manual) 88 H, Band Neutrophils % 1.0, Lymphocytes % (Manual) 7 L, Atypical Lymphs % 1.0, Monocytes % (Manual) 3, Platelet Estimate Normal, Macrocytosis 1+ 05/24/18 13:00: Activated Clotting Time 206 H* 05/24/18 13:05: Activated Clotting Time 291 H* D 05/25/18 06:00: Sodium 140, Potassium 4.2, Chloride 106, Carbon Dioxide 30, Anion Gap 8.2, BUN 28 H, Creatinine 0.95, Estimated Creat Clear 71, Estimated GFR 58 L, Est GFR ( Amer) 71, Glucose 108 H D, Calcium 8.9 I & O for Last 24 hours: Intake & Output 05/22/18 05/23/18 05/24/18 05/25/18 11:59 11:59 11:59 11:59 Intake Total 720 / 720 480 / 480 600 / 600 620 / 620 Output Total 300 / 300 400 / 400 Balance 420 / 420 80 / 80 600 / 600 620 / 620 Weight 176 lb 6 oz 186 lb 3 oz Microbiology Reports for the Last 24 Hours: Microbiology 05/22/18 09:15 Urine,Clean Catch Urine Culture - Final NO GROWTH AFTER 48 HOURS - *Routine HEENT Exam Head: Present: normocephalic Eye: Present: EOMI, PERRL ENT: Present: mucous membranes moist - *Routine Respiratory Exam Present: CTA bilaterally. Absent: accessory muscle use, rales, rhonchi, wheezes - *Routine Cardiovascular Exam Present: RRR. Absent: murmur, gallop, rubs - *Routine Extremities Exam Absent: edema, calf tenderness - *Routine Neurological Exam Present: alert, oriented X3, moving all extremities Progress Note: A&P (1) NSTEMI (non-ST elevated myocardial infarction) Status: Acute Current Visit: Yes (2) Chest pressure Status: Acute Current Visit: Yes (3) COPD exacerbation Status: Acute Current Visit: Yes (4) Hypertensive disorder Status: Chronic Current Visit: No (5) UTI (urinary tract infection) Status: Acute Current Visit: Yes (6) Tingling sensation in face Status: Acute Current Visit: Yes (7) Coronary arteriosclerosis Status: Chronic Current Visit: No (8) Tobacco dependence syndrome Status: Chronic Current Visit: No Assessment and Plan for All Diagnoses:: OK for discharge home from Cardiology standpoint. Continue ASA and plavix. Continue lasix and spironolactone for elevated LVEDP. Continue atorvastatin. BP has been controlled off lisinopril. Continue to hold for now. Consider restarting at follow up. Follow up in one week.
[2018-05-25 08:27] LABS: Basophils % 0.2 % (0.1-2.0); Eosinophils % 0.1 % (0.1-12.0); Hematocrit 36.6 % (37.0-47.0); Lymphocytes # 1.5 K/mm3 (0.7-4.5); Lymphocytes % 14.2 % (10-50); Mean Corpuscular Hemoglobin 31.2 pg (27.0-31.2); Mean Corpuscular Volume 100.9 fl (81-99); Mean Platelet Volume 7.3 fl (7.4-10.4); Monocytes # 0.5 K/mm3 (0.1-1.0); Neutrophils # 8.2 K/mm3 (1.8-7.8); Neutrophils % 80.6 % (37.0-80.0); Platelet Count 223 K/mm3 (142-424); Red Blood Count 3.62 M/mm3 (4.20-5.40); Red Cell Distribution Width 12.8 % (11.5-17.5); White Blood Count 10.2 K/mm3 (4.8-10.8)
[2018-05-25 08:43] LABS: Hemoglobin 11.4 g/dL (12.2-16.2)
--- NOTE | 2018-05-25 09:41 | Discharge Summary ---
General - General Admission date:: 05/21/18 Discharge date: 05/25/18 HPI HPI: 68 year old female with a history of CAD, HTN, COPD, anxiety and hyperlipidemia presented to PCP office with shortness of breath, weakness, dizziness and urinary frequency. Patient was treated for COPD exac with Levaquin and prednisone approx one month ago. She reports shortness of breath and cough have not improved and have worsened over the last week. Oral intake has been decreased. Patient states she began having urinary frequency and "strong smelling urine" a few days ago. No fevers. + loss of appetite, minimal oral intake the last few day. + nausea, no vomiting or diarrhea. In the office, she was found to be orthostatic, sitting SBP 78 with dry oral membranes. Saturations 92% on room. Urinalysis + for UTI. Patient was admitted for IV antibiotics, IVF's and further evaluation. Hospital Course Hospital Course: Patient was admitted for IV antibiotics, hydration and further evaluation. CXR was obtained which showed no acute pathology, this was thought to be related to her dehydration. She was treated for community acquired pneumonia and exac of COPD with azithromycin and ceftriaxone. Labs revealed dehydration with + orthostasis and she was aggressively rehydrated. Blood pressure and creatinine improved. She c/o paresthesia of upper lip/face and CT head was obtained which showed no acute pathology. She developed left sided chest pain, troponin was obtained which was elevated at 0.34. Cardiology was consulted and patient was taken for [facility]. She had successful stenting of left main artery. See cath report for details. She was observed overnight and did well with no further chest pain. She was weaned from oxygen and was noted to be 95% on RA this morning. She is tolerating oral intake well and orthostasis has resolved. Blood pressure meds were held throughout her stay and blood pressure has remained controlled. Discharge home on DAPT. Continue Statin. Continue lasix and aldactone. Azithromycin, cefdinir and prednisone for her COPD/CAP. Hold b/p meds at this time due to recent hypotension. See med reconcilation for complete list. May consider restarting at FU. Return to clinic in one week to see Dr. Koehler. FU with Dr. Fuentes in one week. Objective Vital signs: Temp Pulse Resp BP Pulse Ox 98.3 F 74 20 140/68 100 05/25/18 08:00 05/25/18 06:00 05/25/18 06:00 05/25/18 06:00 05/25/18 06:00 Narrative: ALert and oriented x3. Rate and rhythm regular. No LE edema. ANterior lung sounds clear. Abdomen soft and nontender. Skin pink, warm and dry Results Labs on day of discharge: Labs from last 24 hours 05/25/18 05/25/18 05/24/18 06:00 06:00 13:05 WBC 10.2 D RBC 3.62 L Hgb 11.4 L D Hct 36.6 L MCV 100.9 H MCH 31.2 MCHC 31.0 L RDW 12.8 Plt Count 223 MPV 7.3 L Neut % (Auto) 80.6 H Lymph % (Auto) 14.2 [place] % (Auto) 5.0 Eos % (Auto) 0.1 Baso % (Auto) 0.2 Neut # (Auto) 8.2 H Lymph # (Auto) 1.5 [place] # (Auto) 0.5 Eos # (Auto) 0.0 Baso # (Auto) 0.0 Activated Clotting Time 291 H* D Sodium 140 Potassium 4.2 Chloride 106 Carbon Dioxide 30 Anion Gap 8.2 BUN 28 H Creatinine 0.95 Estimated Creat Clear 71 Estimated GFR 58 L Est GFR ( Amer) 71 Glucose 108 H D Calcium 8.9 05/24/18 13:00 WBC RBC Hgb Hct MCV MCH MCHC RDW Plt Count MPV Neut % (Auto) Lymph % (Auto) [place] % (Auto) Eos % (Auto) Baso % (Auto) Neut # (Auto) Lymph # (Auto) [place] # (Auto) Eos # (Auto) Baso # (Auto) Activated Clotting Time 206 H* Sodium Potassium Chloride Carbon Dioxide Anion Gap BUN Creatinine Estimated Creat Clear Estimated GFR Est GFR ( Amer) Glucose Calcium Preliminary micro results at discharge 05/21/18 18:17 Blood Culture - Preliminary Blood NO GROWTH AFTER 48 HOURS 05/21/18 18:17 Blood Culture - Preliminary Blood NO GROWTH AFTER 48 HOURS DS: Diagnosis - Discharge Diagnosis (1) NSTEMI (non-ST elevated myocardial infarction) Status: Acute (2) Chest pressure Status: Acute (3) COPD exacerbation Status: Acute (4) Hypertensive disorder Status: Chronic (5) UTI (urinary tract infection) Status: Acute (6) Tingling sensation in face Status: Acute (7) Coronary arteriosclerosis Status: Chronic (8) Tobacco dependence syndrome Status: Chronic Discharge Plan - Patient Discharge Instructions ACTIVITY: Continue current activity DIET: continue same diet Patient Instructions: Urinary Tract Infection, Chronic Obstructive Pulmonary Disease, DI for Cardiac Catheterization, DI for Surgical Site Infection - Follow up Plan Follow up with: Red Koehler MD [Primary Care Provider] - 1 week ([place] office) Pratik Fuentes MD [Staff Physician] - 1 week Disposition: Home, Self-Snf Medications: Home Medications Medication Instructions Recorded Confirmed Type alprazolam 1 mg tablet 1 mg PO TID tab 05/18/17 05/22/18 History aspirin 81 mg tablet,delayed 81 mg PO DAILY 05/18/17 05/22/18 History release duloxetine 30 mg capsule,delayed 30 mg PO HS 05/18/17 05/22/18 History release Albuterol Sulfate [Albuterol HFA 2 puffs IH QIDP PRN 05/22/18 05/22/18 History Inhaler] Clopidogrel Bisulfate [Plavix 75mg 75 mg PO DAILY 05/22/18 05/22/18 History Tab] Omeprazole [Omeprazole 40mg 40 mg PO DAILY 05/22/18 05/22/18 History Capsule] Ondansetron HCl [Ondansetron 4mg 4 mg PO Q8HP PRN 05/22/18 05/22/18 History Tablet] Tiotropium [place] [Spiriva 2 puffs IH DAILY 05/22/18 05/22/18 History Respimat] Trazodone HCl 200 mg PO HS 05/22/18 05/22/18 History raNITIdine HCl [Ranitidine HCl] 300 mg PO BID 05/22/18 05/22/18 History Atorvastatin Calcium [Atorvastatin 40 mg PO HS #30 tablet 05/25/18 Rx 40mg Tab] Azithromycin [Zithromax 250mg 250 mg PO DAILY #5 tablet 05/25/18 Rx tab] Cefdinir [Omnicef 300mg Capsule] 300 mg PO BID #20 cap 05/25/18 Rx Furosemide [Lasix 40mg tablet] 40 mg PO DAILY #30 tablet 05/25/18 Rx Spironolactone [Aldactone 25mg 25 mg PO DAILY 30 Days tablet 05/25/18 Rx Tab] predniSONE [Prednisone 20mg 20 mg PO BID #10 tab 05/25/18 Rx Tab] Prescriptions/Medication Reconciliation: New Cefdinir [Omnicef 300mg Capsule] 300 mg PO BID #20 cap Furosemide [Lasix 40mg tablet] 40 mg PO DAILY #30 tablet Azithromycin [Zithromax 250mg tab] 250 mg PO DAILY #5 tablet Spironolactone [Aldactone 25mg Tab] 25 mg PO DAILY 30 Days tablet predniSONE [Prednisone 20mg Tab] 20 mg PO BID #10 tab Atorvastatin Calcium [Atorvastatin 40mg Tab] 40 mg PO HS #30 tablet Continue aspirin 81 mg tablet,delayed release 81 mg PO DAILY duloxetine 30 mg capsule,delayed release 30 mg PO HS alprazolam 1 mg tablet 1 mg PO TID tab Clopidogrel Bisulfate [Plavix 75mg Tab] 75 mg PO DAILY raNITIdine HCl [Ranitidine HCl] 300 mg PO BID Trazodone HCl 200 mg PO HS Albuterol Sulfate [Albuterol HFA Inhaler] 2 puffs IH QIDP PRN PRN Reason: SHORTNESS OF AIR Ondansetron HCl [Ondansetron 4mg Tablet] 4 mg PO Q8HP PRN PRN Reason: Nausea And Vomiting Tiotropium [place] [Spiriva Respimat] 2 puffs IH DAILY Omeprazole [Omeprazole 40mg Capsule] 40 mg PO DAILY Discontinued Lisinopril 20mg Tab 20 mg PO BID Amlodipine Besylate 2.5 mg PO DAILY Carvedilol 25mg Tab 25 mg PO BID Furosemide 20mg Tab 20 mg PO DAILY
== END 2018-05-25 11:45 | disposition home or self-care (01) ==
LOC: 2ND
PROVIDERS: ADMIT Internal Medicine Adolescent Medicine; ATTEND Internal Medicine Adolescent Medicine
CPT/HCPCS: 36415; 70450; 71020; 71046; 80048; 80053; 81001; 82550; 82553; 84484; 85007; 85025; 85347; 87040; 87070; 87086; 87205; 92928; 93005; 93458; 94640; 94761; 99152; C1725; C1769; C1876; C9600; G0378; J0456; J1644; Q9967

== ENCOUNTER → 2018-06-04 13:37 | Outpatient (CLI) | payer MEDICARE, SELFPAY ==
--- NOTE | 2018-06-04 13:40 | CA_ITS ---
PROCEDURE: 2-D M-mode and color Doppler study INDICATIONS FOR THE TEST: Chest pain X COPD Heart Murmur Tobacco Smoking Palpitations Fatigue Syncope Edema Hypertension Diabetes Mellitus Rheumatic Fever SOB VERDUZCO Obesity Hyperlipidemia Family History HD Additional History CAD,STENT PATIENT INFORMATION HEIGHT: 67 WEIGHT:183 GENDER: Female B/P:129/71 2-D/M-MODE INTERPRETATION: 2-D MEASUREMENTS OBSERVED VALUES IN CMS Right Ventricular Dimension (RVDd) 2.0 Interventricular Septum (Thickness)(IVsd) 1.0 Left Ventricular Internal Dimensions(LVIDd) 5.7 Left Ventricular Posterior Wall (Thickness)(LVPWd) 1.0 Aortic Root 3.2 Aortic Cusp Separation 1.7 Left Atrial Dimensions (LAD) 3.3 2D 1. Left atrium is normal size, left ventricle is normal size, there is no concentric left ventricular hypertrophy, visually estimated ejection fraction 55% with no regional wall motion abnormality. 2. The right atrium and ventricle are mildly enlarged with normal contractility. 3. The aortic, mitral and tricuspid valvular grossly normal. 4. The pulmonic valve is poorly present. 5. No significant pericardial effusion noted. DOPPLER INTERROGATION: Doppler interrogation of the aortic, mitral and tricuspid valvular presence of mild mitral and tricuspid regurgitation, tricuspid regurgitation jet velocity is inadequate for calculation of the right ventricular systolic pressure, diastolic parameters are inconclusive. CONCLUSION: 1. Normal left ventricular size, visually estimated ejection fraction 55% with no regional wall motion abnormality, diastolic parameters are inconclusive. 2. Mildly enlarged right ventricle with normal contractility. 3. Mild mitral and tricuspid regurgitation 4. No significant pericardial effusion noted.
== END ==
PROVIDERS: PCP Internal Medicine Adolescent Medicine; Visit Provider Internal Medicine Cardiovascular Disease
DX: R07.89 Other chest pain (principal)
CPT/HCPCS: 93306

== ENCOUNTER 2018-06-04 14:29 | Observation (INO) ==
--- NOTE | 2018-06-04 14:41 | Emergency Department Note ---
ED Disposition Clinical Impression: Atypical chest pain Hypotension Qualifiers: Hypotension type: unspecified hypotension type Qualified Code(s): I95.9 - Hypotension, unspecified Disposition: Admitted as Observation Condition on Discharge: Fair Referrals: Red Koehler MD [Primary Care Provider] - - Critical Care Critical Care Time: Yes Attestation: On 06/04/18, the high probability of a clinically significant, sudden or life threatening deterioration of the following system(s) required my full and direct attention, intervention and personal management. The time I documented below is in addition to time spent performing reported procedures but includes the following listed in this critical care notation. Total Critical Care Time: 35 Vital system(s) involved:: Circulatory Failure My critical care processes included: Assessment & monitoring of V/S, Initial and Re-exams, Data Review/Interpretation, Coordinating Care, Medication Orders and management, Documentation Medical Decision Making - Jose Elias Inquiry Pt receiving controlled substance: No Vital Signs: 06/04/18 14:30 06/04/18 14:49 06/04/18 16:02 Temperature 97.8 F Temperature Source Oral Pulse Rate [Right Brachial] 70 62 65 Respiratory Rate 18 17 Blood Pressure [Right Arm] 105/72 L 94/66 L 94/58 L Blood Pressure Mean [Right Arm] 83 75 70 Blood Pressure Source [Right Arm] Automatic Cuff Automatic Cuff Blood Pressure Position [Right Arm] Sitting Sitting 02 Sat by Pulse Oximetry 98 89 L 98 Oxygen Delivery Method Room Air Room Air 06/04/18 16:30 06/04/18 17:00 Temperature Temperature Source Pulse Rate [Right Brachial] 65 59 L Respiratory Rate Blood Pressure [Right Arm] 90/53 L 100/70 L Blood Pressure Mean [Right Arm] 65 80 Blood Pressure Source [Right Arm] Blood Pressure Position [Right Arm] 02 Sat by Pulse Oximetry 98 94 L Oxygen Delivery Method Room Air - Lab Data Lab Results 06/04/18 14:34: WBC 11.8 H, RBC 4.38, Hgb 13.5, Hct 42.9, MCV 98.0, MCH 30.8, MCHC 31.5 L, RDW 13.5, Plt Count 251, MPV 6.5 L, Neut % (Auto) 78.4, Lymph % (Auto) 14.2, [place] % (Auto) 6.5, Eos % (Auto) 0.7, Baso % (Auto) 0.3, Neut # (Auto) 9.3 H, Lymph # (Auto) 1.7, [place] # (Auto) 0.8, Eos # (Auto) 0.1, Baso # (Auto) 0.0 06/04/18 14:34: Sodium 135 L, Potassium 4.3, Chloride 98, Carbon Dioxide 32, Anion Gap 9.3, BUN 25 H, Creatinine 1.05 H, Estimated Creat Clear 65, Estimated GFR 52 L, Est GFR ( Amer) 63, Glucose 103, Calcium 9.1, Troponin I < 0.02 Result diagrams: 06/04/18 14:34 06/04/18 14:34 Orders (Tests/Meds): ED MEDICATIONS Discontinued Medications Generic Name Dose Route Start Last Admin Trade Name Freq PRN Reason Stop Dose Admin Belladonna Alkaloids 60 ml 06/04/18 16:54 06/04/18 17:04 Gi Cocktail 60ml Udc PO 06/04/18 16:55 60 ml ONCE ONE Administration Sodium Chloride 1,000 mls @ 999 mls/hr 06/04/18 15:00 06/04/18 15:11 Sod Chlor 0.9% 1000ml Bag IV 06/04/18 16:00 999 mls/hr .[id number] JUAN MIGUEL Administration - Radiology Data #1 Image(s): Chest Image Reviewed: Yes I reviewed the patient's radiology image nad - ECG Data Tracing #1 EKG interpreted by Nehemiah Ocasio MD: Rhythm: sinus Rate: 65 [place]: normal Ectopy: none Conduction: normal ST Segment Changes: none T Wave Changes: none Q Waves: none No evidence of acute ischemia or injury - Physician Consults Physician Consulted: Denver Koehler Time: 16:53 Reason -: Admission Comment/Response: Agrees to admit the patient to the hospital. We discussed the patient's clinical information, including history, exam, laboratory and radiology results and ED course. Per hospital procedure, I will write temporary bridge inpatient orders on the patient. Specific orders requested by the admitting physician: Hold diuretics, continue bisoprolol, continue IV fluids. GI cocktail. Additional Consult: Alfredo Time: 16:00 Reason -: Cardiology Eval/Care Comment/Response: Does not feel this is cardiac chest pain. Medical Decision Narrative: recent LHC: IMPRESSION: 1. Critical ostial left main stenosis as described above 2. Successful stenting of the ostial proximal mid left main artery critical disease reduced to 0% with 1 drug-eluting stent 3. Preserved ejection fraction 4. Moderately elevated LVEDP consistent with diastolic dysfunction PLAN: 1. Dual antiplatelet therapy 2. Avoidance of tobacco products 3. Cardiac rehabilitation 4. Standard therapy for ischemic heart disease 5. Patient would benefit from loop diuretics and Aldactone in order to decrease LVEDP and treat diastolic dysfunction Dictated By: Pratik Fuentes MD Signed By: <Electronically signed by Pratik Fuentes MD in [place]> 04/28 12/13 1334 recent office f/u visit - 05/27/18 BP is stable, she states that Dr Koehler stopped her Lisinopril,amlodipine, coreg before she left the hospital due to hypotension. will start bisoprolol 5 mg qd today due to HR of 90 bpm and CAD with recent Left Main stenting. General Adult HPI - General Chief complaint: Chest Pain Stated complaint: chest pain Time Seen by Provider: 06/04/18 14:57 Mode of Arrival: Wheelchair Limitations: No Limitations Description of Symptoms (Recalled from ER Triage Doc. by RN): pt was in cardiovascular lab having a post stent placement echo performed when the chest pain that she has had since her stent placement last week became enough of a concern to come be checked out. pt arrives feeling nauseated, with chest pain, holding center of chest. denies soa however admits to smoking 1 ppd cigs - History of Present Illness HPI narrative: History obtained from patient and family. Patient and family are poor historians. Patient complains of nausea and discomfort in her chest. She says she has had nausea "forever". It used to come and go, but she says since she had a stent put in here, she thinks a couple of weeks ago, it has been constant. She also says that she has had constant aching or muscle spasms in her left anterior chest since then as well. She was here in the hospital today to have a follow- up echocardiogram after her stent placement and told the fire alarm technician that she was having chest pain and she says that they talked her into coming into the emergency room to be checked. Patient states that her blood pressure has been low since she was in the hospital, and they took her off blood pressure medication. She is not sure of her current medications. She says that she was initially admitted for pneumonia and hypoxia and low blood pressure, but they discovered her to have a blockage while she was in the hospital and she had a cardiac cath. She says that she had had severe chest pain the night before she was admitted for pneumonia. - Related Data Home Medications Medication Instructions Recorded Confirmed alprazolam 1 mg tablet 1 mg PO TID tab 05/18/17 06/04/18 aspirin 81 mg tablet,delayed 81 mg PO DAILY 05/18/17 06/04/18 release duloxetine 30 mg capsule,delayed 30 mg PO HS 05/18/17 06/04/18 release Albuterol Sulfate [Albuterol HFA 2 puffs IH QIDP PRN 05/22/18 06/04/18 Inhaler] Omeprazole [Omeprazole 40mg 40 mg PO DAILY 05/22/18 06/04/18 Capsule] Ondansetron HCl [Ondansetron 4mg 4 mg PO Q8HP PRN 05/22/18 06/04/18 Tablet] Tiotropium [place] [Spiriva 2 puffs IH DAILY 05/22/18 06/04/18 Respimat] Trazodone HCl 200 mg PO HS 05/22/18 06/04/18 raNITIdine HCl [Ranitidine HCl] 300 mg PO BID 05/22/18 06/04/18 Atorvastatin Calcium [Atorvastatin 40 mg PO HS 06/04/18 06/04/18 40mg Tab] Bisoprolol Fumarate [Bisoprolol 5 mg PO DAILY 06/04/18 06/04/18 5mg Tablet] Furosemide [Lasix 40mg tablet] 40 mg PO DAILY 06/04/18 06/04/18 Spironolactone [Aldactone 25mg 25 mg PO DAILY 06/04/18 06/04/18 Tab] Previous Rx's Medication Instructions Recorded clopidogrel 75 mg tablet 75 mg PO DAILY #30 tab 05/27/18 Allergies Allergy/AdvReac Type Severity Reaction Status Date / Time promethazine Allergy Unknown Verified 05/27/18 11:16 Iodinated Contrast Media - Allergy Verified 05/27/18 11:16 Oral and [facility] History - Hepatitis A Screen Drug use history?: No High risk sexual behaviors?: No History of sexually transmitted infection?: No Currently employed?: No Childcare worker?: No Do you have indoor plumbing?: Yes Do you have electricity?: Yes Attestation statement:: This patient has been screened for Hepatitis A risk factors. I have reviewed the patient's past medical history: Yes Medical History: Reports:: Anxiety, Chronic Obstructive Pulmonary Disease (COPD), Coronary Artery Disease, Cerebrovascular Accident, Depression, Hyperlipidemia, Hypertension, Lung Disease Denies:: Diabetes Mellitus Type 1, Diabetes Mellitus Type 2, Internal Pacemaker, Seizures Other Medical History: Reports: Arthritis, Other Other Surgeries: Yes: Cardiac Catheterization, Colonoscopy (11/17/17), Coronary Stent, EGD (11/17/17), Hysterectomy-Total, Other. No: Pacemaker Amputation: No Fractures: No - Social History Educational Level: Completed High School Smoking Status: Current every day smoker Tobacco Type: cigarettes # Packs/Day (cigarettes): 20 Alcohol Intake: never Alcohol Intake Frequency:: other Substance Use Type: denies use Occupational Status: disabled - Psychiatric History Expresses thoughts of harming self/others: None Suicide Plan Description: No Plan Pschychiatric History:: Reports:: Anxiety, Depression Family Hx:: Non-contributory ROS Obtained: Yes All systems reviewed & no additional complaints - Constitutional Constitutional: Denies fever(s) - Cardiovascular Cardiovascular: Reports chest pain - Gastrointestinal Gastrointestingal: Reports: nausea Physical Exam - General General appearance: alert, in no apparent distress - Head Head exam: atraumatic, normocephalic - Eye Eye exam: Present: normal appearance, PERRL, EOMI - ENT ENT exam: Present: mucous membranes moist - Neck Neck exam: Present: normal inspection, full ROM - Chest Chest inspection: Present: normal inspection, symmetric chest wall rise, tenderness - Respiratory Respiratory exam: Present: normal lung sounds bilaterally. Absent: respiratory distress - Cardiovascular Cardiovascular exam: Present: regular rate, normal rhythm, normal heart sounds - Abdominal Exam Abdominal exam: Present: soft. Absent: distention, tenderness - Extremities Exam Extremities exam: Present: normal inspection, full ROM. Absent: calf tenderness - Neurological Exam Neurological exam: Present: alert, oriented X3 - Psychiatric Psychiatric exam: Present: flat affect - Skin Skin exam: Present: warm, dry
[2018-06-04 15:14] LABS: Basophils % 0.3 % (0.1-2.0); Eosinophils # 0.1 K/mm3 (0.0-0.4); Eosinophils % 0.7 % (0.1-12.0); Hematocrit 42.9 % (37.0-47.0); Hemoglobin 13.5 g/dL (12.2-16.2); Lymphocytes # 1.7 K/mm3 (0.7-4.5); Lymphocytes % 14.2 % (10-50); Mean Corpuscular HGB Conc 31.5 g/dL (31.8-35.4); Mean Corpuscular Hemoglobin 30.8 pg (27.0-31.2); Mean Platelet Volume 6.5 fl (7.4-10.4); Monocytes # 0.8 K/mm3 (0.1-1.0); Monocytes % 6.5 % (1.7-9.3); Neutrophils # 9.3 K/mm3 (1.8-7.8); Neutrophils % 78.4 % (37.0-80.0); Platelet Count 251 K/mm3 (142-424); Red Blood Count 4.38 M/mm3 (4.20-5.40); Red Cell Distribution Width 13.5 % (11.5-17.5); White Blood Count 11.8 K/mm3 (4.8-10.8)
[2018-06-04 15:22] LABS: Anion Gap 9.3 mEq/L (5-15); Blood Urea Nitrogen 25 mg/dL (7-18); Calcium 9.1 mg/dL (8.5-10.1); Carbon Dioxide 32 mmol/L (21.0-32.0); Chloride 98 mmol/L (98-107); Glucose 103 mg/dL (74-106); Potassium 4.3 mmoL/L (3.5-5.1); Sodium 135 mmol/L (136-145)
--- NOTE | 2018-06-04 18:20 | History & Physical Report ---
*Admission Date: 06/04/18 *Chief complaint: Chest pain and weakness *History of present illness: 68-year-old white female with known coronary atherosclerosis, non-STEMI early last week with stent placement, long-term tobacco abuse, anxiety disorder and GERD who presented to the emergency department from the echo lab today. She was in the echo lab and undergoing scheduled echocardiogram for cardiology clinic, and told the tech that she was having some chest pain. They brought her to the emergency department for evaluation. ER evaluation included essentially negative lab work, including negative troponins. ER workup included unchanged EKG and negative chest x-ray. She was found to have relatively low blood pressures and be very weak. IV fluids were given and a GI cocktail was given on our recommendation which improved her chest pain significantly. She is admitted for IV fluids, adjustments of her blood pressure medication and further lab testing. Left heart cath report and recommendations from that visit are noted below: ANGIOGRAPHIC RESULTS: 1. The left main artery has an ostial very eccentric greater than 80% calcified fingerlike stenosis 2. The left anterior descending artery has a stent in the ostial proximal segment which is widely patent free of in-stent restenosis with excellent proximal distal transitioning 3. The circumflex artery is a nondominant yet still large vessel with mild atheromatous plaque. A very large [place] collateral collateralizes the distal dominant right coronary artery. 4. The right coronary artery is a dominant vessel and subtotally occluded in its mid segment 5. The [place] ventriculogram reveals preserved ejection fraction 60% 6. The left ventricular end-diastolic pressure moderately elevated at 25 mmHg IMPRESSION: 1. Critical ostial left main stenosis as described above 2. Successful stenting of the ostial proximal mid left main artery critical disease reduced to 0% with 1 drug-eluting stent 3. Preserved ejection fraction 4. Moderately elevated LVEDP consistent with diastolic dysfunction PLAN: 1. Dual antiplatelet therapy 2. Avoidance of tobacco products 3. Cardiac rehabilitation 4. Standard therapy for ischemic heart disease 5. Patient would benefit from loop diuretics and Aldactone in order to decrease LVEDP and treat diastolic dysfunction [facility] History I have reviewed the patient's past medical history: Yes Medical History: Reports:: Anxiety, Chronic Obstructive Pulmonary Disease (COPD), Coronary Artery Disease, Cerebrovascular Accident, Depression, Hyperlipidemia, Hypertension, Lung Disease Denies:: Diabetes Mellitus Type 1, Diabetes Mellitus Type 2, Internal Pacemaker, Seizures Have you ever received a pneumonia vaccine?: Yes Have you received a flu vaccine this season?: No Other Medical History: Reports: Arthritis, Other Other Surgeries: Yes: Cardiac Catheterization, Colonoscopy (11/17/17), Coronary Stent, EGD (11/17/17), Hysterectomy-Total, Other. No: Pacemaker Amputation: No Fractures: No - *Social History Educational Level: Completed High School Smoking Status: Current every day smoker Tobacco Type: cigarettes # Packs/Day (cigarettes): 20 Alcohol Intake: never Alcohol Intake Frequency:: other Substance Use Type: denies use Occupational Status: disabled Travel in the last 8 weeks: None - Psychiatric History Expresses thoughts of harming self/others: None Suicide Plan Description: No Plan Pschychiatric History:: Reports:: Anxiety, Depression Family Hx:: Non-contributory Review of Systems - Review of Systems Review of systems:: pertinent systems reviewed and negative unless documented below - Constitutional Reports daytime sleepiness, Reports lack of energy, Reports malaise, Denies anorexia, Denies body ache(s), Denies chills - Eyes Denies blind spots, Denies blurry vision, Denies change in vision - ENT Denies abnormal hearing, Denies bleeding gums, Denies change in voice - *Cardiovascular Reports chest pain, Reports chest pain at rest, Reports chest pain with activity, Reports lightheadedness, Denies shortness of breath, Denies shortness of breath with activity, Denies generalized swelling, Denies irregular heart rhy thm, Denies leg swelling, Denies shortness of breath when lying down, Denies rapid, pounding, or irregular heartbeat - *Respiratory Denies change in phlegm color, Denies chest congestion, Denies cough, Denies excessive phlegm production - *Gastrointestinal Reports abdominal pain, Denies coffee ground vomit, Denies difficulty swallowing - *Musculoskeletal Denies abnormal walking, Denies joint pain - Integumentary/Breasts Denies acne, Denies hair loss, Denies bleeding lesions - *Neurologic Denies abnormal walking, Denies abnormal hearing, Denies burning sensations - Psychiatric Reports lack of enjoyment, Reports anxiety, Denies abnormal sleep pattern - Endocrine Denies cold intolerance, Denies excessive sweating - Hematologic/Lymphatic Denies easy bleeding - Allergic/Immunologic Denies GI upset with certain foods Meds Home Medications Medication Instructions Recorded Confirmed Type alprazolam 1 mg tablet 1 mg PO TID tab 01/22/18 02/08/19 History aspirin 81 mg tablet,delayed 81 mg PO DAILY 05/18/17 06/04/18 History release duloxetine 30 mg capsule,delayed 30 mg PO HS 05/18/17 06/04/18 History release Albuterol Sulfate [Albuterol HFA 2 puffs IH QIDP PRN 05/22/18 06/04/18 History Inhaler] Omeprazole [Omeprazole 40mg 40 mg PO DAILY 05/22/18 06/04/18 History Capsule] Ondansetron HCl [Ondansetron 4mg 4 mg PO Q8HP PRN 05/22/18 06/04/18 History Tablet] Tiotropium [place] [Spiriva 2 puffs IH DAILY 05/22/18 06/04/18 History Respimat] Trazodone HCl 200 mg PO HS 05/22/18 06/04/18 History raNITIdine HCl [Ranitidine HCl] 300 mg PO BID 05/22/18 06/04/18 History clopidogrel 75 mg tablet 75 mg PO DAILY #30 tab 05/27/18 06/04/18 Rx Atorvastatin Calcium [Atorvastatin 40 mg PO HS 06/04/18 06/04/18 History 40mg Tab] Bisoprolol Fumarate [Bisoprolol 5 mg PO DAILY 06/04/18 06/04/18 History 5mg Tablet] Furosemide [Lasix 40mg tablet] 40 mg PO DAILY 06/04/18 06/04/18 History Spironolactone [Aldactone 25mg 25 mg PO DAILY 06/04/18 06/04/18 History Tab] Allergies Allergy/AdvReac Type Severity Reaction Status Date / Time promethazine Allergy Unknown Verified 05/27/18 11:16 Iodinated Contrast Media - Allergy Verified 05/27/18 11:16 Oral and Exam Vital signs and Labs for Last 24 Hours: Temp Pulse Resp BP Pulse Ox 97.8 F 62 17 103/69 L 95 06/04/18 14:30 06/04/18 17:30 06/04/18 16:02 06/04/18 17:30 06/04/18 17:30 Laboratory Results - last 24 hr 06/04/18 14:34: WBC 11.8 H, RBC 4.38, Hgb 13.5, Hct 42.9, MCV 98.0, MCH 30.8, MCHC 31.5 L, RDW 13.5, Plt Count 251, MPV 6.5 L, Neut % (Auto) 78.4, Lymph % (Auto) 14.2, [place] % (Auto) 6.5, Eos % (Auto) 0.7, Baso % (Auto) 0.3, Neut # (Auto) 9.3 H, Lymph # (Auto) 1.7, [place] # (Auto) 0.8, Eos # (Auto) 0.1, Baso # (Auto) 0.0 06/04/18 14:34: Sodium 135 L, Potassium 4.3, Chloride 98, Carbon Dioxide 32, Anion Gap 9.3, BUN 25 H, Creatinine 1.05 H, Estimated Creat Clear 65, Estimated GFR 52 L, Est GFR ( Amer) 63, Glucose 103, Calcium 9.1, Troponin I < 0.02 I & O for Last 24 hours: Intake & Output 06/02/18 06/03/18 06/04/18 06/05/18 11:59 11:59 11:59 11:59 Weight 179 lb Narrative: Patient is awake. Alert, oriented x3. Oropharynx clear. Poor dentition. Heavy nicotine halitosis. No scleral icterus or jaundice. Anterior lung [place] are clear. Heart rate regular without murmurs. Abdomen soft and nontender. No reproducible chest pain on exam. No clubbing or edema in her lower extremities. Able to move all extremities well but is globally weak. Assessment and Plan (1) Atypical chest pain Current visit: Yes Status: Acute Category: Medical Code(s): R07.89 - Other chest pain Improved with GI cocktail. No evidence of recurrent cardiac disease. If still with chest pain in the morning might benefit from low-dose nitrates with possibl e post stent vasospasm occurring. (2) Hypotension Current visit: Yes Status: Acute Qualifiers: Hypotension type: unspecified hypotension type Qualified Code(s): I95.9 - Hypotension, unspecified Category: Medical Code(s): I95.9 - Hypotension, unspecified Hold blood pressure medications at this point. Cautious IV fluid administration.
[2018-06-05 05:16] LABS: Basophils % 0.4 % (0.1-2.0); Eosinophils # 0.1 K/mm3 (0.0-0.4); Eosinophils % 1.9 % (0.1-12.0); Hematocrit 35.9 % (37.0-47.0); Lymphocytes # 1.4 K/mm3 (0.7-4.5); Lymphocytes % 21.9 % (10-50); Mean Corpuscular HGB Conc 31.5 g/dL (31.8-35.4); Mean Corpuscular Hemoglobin 31.2 pg (27.0-31.2); Mean Corpuscular Volume 99.1 fl (81-99); Mean Platelet Volume 6.5 fl (7.4-10.4); Monocytes # 0.5 K/mm3 (0.1-1.0); Monocytes % 7.2 % (1.7-9.3); Neutrophils # 4.4 K/mm3 (1.8-7.8); Neutrophils % 68.6 % (37.0-80.0); Platelet Count 184 K/mm3 (142-424); Red Blood Count 3.62 M/mm3 (4.20-5.40); Red Cell Distribution Width 13.6 % (11.5-17.5); White Blood Count 6.5 K/mm3 (4.8-10.8)
[2018-06-05 05:26] LABS: Anion Gap 8.2 mEq/L (5-15); Calcium 8.4 mg/dL (8.5-10.1); Hemoglobin 11.3 g/dL (12.2-16.2); Potassium 4.2 mmoL/L (3.5-5.1)
--- NOTE | 2018-06-05 09:46 | Discharge Summary ---
General - General Admission date:: 06/04/18 Discharge date: 06/05/18 HPI HPI: 68-year-old white female with known coronary atherosclerosis, non-STEMI early last week with stent placement, long-term tobacco abuse, anxiety disorder and GERD who presented to the emergency department from the echo lab today. She was in the echo lab and undergoing scheduled echocardiogram for cardiology clinic, and told the tech that she was having some chest pain. They brought her to the emergency department for evaluation. ER evaluation included essentially negative lab work, including negative troponins. ER workup included unchanged EKG and negative chest x-ray. She was found to have relatively low blood pressures and be very weak. IV fluids were given and a GI cocktail was given on our recommendation which improved her chest pain significantly. She is admitted for IV fluids, adjustments of her blood pressure medication and further lab testing. Left heart cath report and recommendations from that visit are noted below: ANGIOGRAPHIC RESULTS: 1. The left main artery has an ostial very eccentric greater than 80% calcified fingerlike stenosis 2. The left anterior descending artery has a stent in the ostial proximal segment which is widely patent free of in-stent restenosis with excellent proximal distal transitioning 3. The circumflex artery is a nondominant yet still large vessel with mild atheromatous plaque. A very large Kugel collateral collateralizes the distal dominant right coronary artery. 4. The right coronary artery is a dominant vessel and subtotally occluded in its mid segment 5. The [place] ventriculogram reveals preserved ejection fraction 60% 6. The left ventricular end-diastolic pressure moderately elevated at 25 mmHg IMPRESSION: 1. Critical ostial left main stenosis as described above 2. Successful stenting of the ostial proximal mid left main artery critical disease reduced to 0% with 1 drug-eluting stent 3. Preserved ejection fraction 4. Moderately elevated LVEDP consistent with diastolic dysfunction PLAN: 1. Dual antiplatelet therapy 2. Avoidance of tobacco products 3. Cardiac rehabilitation 4. Standard therapy for ischemic heart disease 5. Patient would benefit from loop diuretics and Aldactone in order to decrease LVEDP and treat diastolic dysfunction Hospital Course Hospital Course: Ms. Christianson was admitted for chest discomfort and low blood pressure. Upon chart review of out patient records it was noted that Mrs. Christianson blood pressure was not exceptionally lower than her usual. Given the recent addition of bisoprolol this dose was decreased to 2.5 mg from the prescribed 5 mg. Additionally significant fluids did not change her blood pressure status and she remained M asymptomatic without any confusion, dizziness, fatigue. In regards to her chest discomfort it responded beautifully to a GI cocktail with complete resolution of discomfort. Patient was discharged home with prescription for the components of a GI cocktail and instructions on how to utilize if she has further pain. None of the chest discomfort she was feeling was acute and it is all been present for an extended period of time. Patient remained hemodynamically stable. Meeting criteria for discharge home. Objective Vital signs: Temp Pulse Resp BP Pulse Ox 98.0 F 55 L 16 100/53 L 93 L 06/05/18 08:30 06/05/18 08:30 06/05/18 08:30 06/05/18 08:30 06/05/18 08:30 Narrative: Patient is awake. Alert, oriented x3. Oropharynx clear. Poor dentition. No scleral icterus or jaundice. Anterior lung regalado are clear. Heart rate regular without murmurs. Abdomen soft and nontender. No reproducible chest pain or upper abdominal pain on exam. No clubbing or edema in her lower extremities. Able to move all extremities well but is globally weak. Results Labs on day of discharge: Labs from last 24 hours 06/05/18 06/05/18 06/04/18 04:25 04:25 14:34 WBC 6.5 D RBC 3.62 L Hgb 11.3 L D Hct 35.9 L MCV 99.1 H MCH 31.2 MCHC 31.5 L RDW 13.6 Plt Count 184 D MPV 6.5 L Neut % (Auto) 68.6 Lymph % (Auto) 21.9 Metcalfe % (Auto) 7.2 Eos % (Auto) 1.9 Baso % (Auto) 0.4 Neut # (Auto) 4.4 Lymph # (Auto) 1.4 Metcalfe # (Auto) 0.5 Eos # (Auto) 0.1 Baso # (Auto) 0.0 Sodium 141 135 L Potassium 4.2 4.3 Chloride 106 98 Carbon Dioxide 31 32 Anion Gap 8.2 9.3 BUN 23 H 25 H Creatinine 0.88 1.05 H Estimated Creat Clear 68 65 Estimated GFR 64 52 L Est GFR ( Amer) 77 D 63 Glucose 125 H D 103 Calcium 8.4 L 9.1 Troponin I < 0.02 06/04/18 14:34 WBC 11.8 H RBC 4.38 Hgb 13.5 Hct 42.9 MCV 98.0 MCH 30.8 MCHC 31.5 L RDW 13.5 Plt Count 251 MPV 6.5 L Neut % (Auto) 78.4 Lymph % (Auto) 14.2 Metcalfe % (Auto) 6.5 Eos % (Auto) 0.7 Baso % (Auto) 0.3 Neut # (Auto) 9.3 H Lymph # (Auto) 1.7 Metcalfe # (Auto) 0.8 Eos # (Auto) 0.1 Baso # (Auto) 0.0 Sodium Potassium Chloride Carbon Dioxide Anion Gap BUN Creatinine Estimated Creat Clear Estimated GFR Est GFR ( Amer) Glucose Calcium Troponin I DS: Diagnosis - Discharge Diagnosis (1) Atypical chest pain Status: Resolved (2) Hypotension Status: Chronic Discharge Plan - Patient Discharge Instructions ACTIVITY: Continue current activity DIET: continue same diet Patient Instructions: DI for Atypical Chest Pain, DI for Hypotension - Follow up Plan Follow up with: Red Koehler MD [Primary Care Provider] - (1 week) Disposition: Home, Self-Custodial Medications: Home Medications Medication Instructions Recorded Confirmed Type alprazolam 1 mg tablet 1 mg PO TID tab 05/18/17 06/04/18 History aspirin 81 mg tablet,delayed 81 mg PO DAILY 05/18/17 06/04/18 History release duloxetine 30 mg capsule,delayed 30 mg PO HS 05/18/17 06/04/18 History release Albuterol Sulfate [Albuterol HFA 2 puffs IH QIDP PRN 05/22/18 06/04/18 History Inhaler] Omeprazole [Omeprazole 40mg 40 mg PO DAILY 05/22/18 06/04/18 History Capsule] Ondansetron HCl [Ondansetron 4mg 4 mg PO Q8HP PRN 05/22/18 06/04/18 History Tablet] Tiotropium Holiday [Spiriva 2 puffs IH DAILY 05/22/18 06/04/18 History Respimat] Trazodone HCl 200 mg PO HS 05/22/18 06/04/18 History raNITIdine HCl [Ranitidine HCl] 300 mg PO BID 05/22/18 06/04/18 History clopidogrel 75 mg tablet 75 mg PO DAILY #30 tab 05/27/18 06/04/18 Rx Atorvastatin Calcium [Atorvastatin 40 mg PO HS 06/04/18 06/04/18 History 40mg Tab] Bisoprolol Fumarate [Zebeta 5mg 2.5 mg PO DAILY 30 Days #15 tab 06/05/18 Rx tablet] Lidocaine HCl [Lidocaine 2% 15 ml MM Q8HP PRN 30 Days #120 ml 06/05/18 Rx viscous solution 15mL UDC] Mag Hydrox/Aluminum Hyd/Simeth 355 ml PO Q8HP PRN 30 Days #355 ml 06/05/18 Rx [Maalox Advanced Suspension] Prescriptions/Medication Reconciliation: New Bisoprolol Fumarate [Zebeta 5mg tablet] 2.5 mg PO DAILY 30 Days #15 tab Mag Hydrox/Aluminum Hyd/Simeth [Maalox Advanced Suspension] 355 ml PO Q8HP PRN 30 Days #355 ml PRN Reason: Heartburn Lidocaine HCl [Lidocaine 2% viscous solution 15mL UDC] 15 ml MM Q8HP PRN 30 Days #120 ml PRN Reason: Heartburn Continue aspirin 81 mg tablet,delayed release 81 mg PO DAILY duloxetine 30 mg capsule,delayed release 30 mg PO HS alprazolam 1 mg tablet 1 mg PO TID tab clopidogrel 75 mg tablet 75 mg PO DAILY #30 tab raNITIdine HCl [Ranitidine HCl] 300 mg PO BID Trazodone HCl 200 mg PO HS Albuterol Sulfate [Albuterol HFA Inhaler] 2 puffs IH QIDP PRN PRN Reason: SHORTNESS OF AIR Ondansetron HCl [Ondansetron 4mg Tablet] 4 mg PO Q8HP PRN PRN Reason: Nausea And Vomiting Tiotropium Holiday [Spiriva Respimat] 2 puffs IH DAILY Atorvastatin Calcium [Atorvastatin 40mg Tab] 40 mg PO HS Omeprazole [Omeprazole 40mg Capsule] 40 mg PO DAILY Discontinued Bisoprolol Fumarate [Bisoprolol 5mg Tablet] 5 mg PO DAILY Spironolactone [Aldactone 25mg Tab] 25 mg PO DAILY Furosemide [Lasix 40mg tablet] 40 mg PO DAILY
== END 2018-06-05 14:05 | disposition home or self-care (01) ==
LOC: 2ND 14:29 → ER 14:29 → 2ND 18:32
PROVIDERS: ADMIT Internal Medicine Adolescent Medicine; ATTEND Internal Medicine Adolescent Medicine
CPT/HCPCS: 36415; 71020; 71046; 80048; 84484; 85025; 93005; 99284; G0378

== ENCOUNTER → 2018-07-09 08:36 | Outpatient (CLI) | payer MEDICARE, SELFPAY ==
--- NOTE | 2018-07-09 08:43 | CI_ITS ---
Cerebrovascular Exam IMPRESSIONS 1. The bilateral vertebral arteries are patent with normal antegrade flow. 2. Study suggests 20-49% stenosis involving the left internal carotid artery. 3. Study suggests less than 20% stenosis involving the right internal carotid artery. Labs, prior tests, procedures, and surgery: Right carotid stent. Labs, prior tests, procedures, and surgery: Right carotid stent. Carotid duplex study. Complete study and Doppler flow study including spectral analysis, color and mishra scale imaging. Height: Height: 177.8cm. Height: 70in. Weight: Weight: 81.6kg. Weight: 179.6lb. Body mass index: BMI: 25.8kg/m^2. Body surface area: BSA: 2.02m^2. Location: Vascular laboratory. Patient status: Outpatient. Tables: Arterial flow: + +--------+--------+ Location V sys V ed + +--------+--------+ Right CCA - proximal 71.5cm/s 22cm/s + +--------+--------+ Right CCA - distal 58.9cm/s 11.4cm/s + +--------+--------+ Right ECA 86cm/s -------- + +--------+--------+ Right ICA - proximal 66.4cm/s 22.3cm/s + +--------+--------+ Right ICA - mid 82.1cm/s 30.6cm/s + +--------+--------+ Right ICA - distal 81.2cm/s 29.7cm/s + +--------+--------+ Right vertebral 33.8cm/s -------- + +--------+--------+ Left CCA - proximal 80.3cm/s 19.6cm/s + +--------+--------+ Left CCA - distal 75.5cm/s 21.8cm/s + +--------+--------+ Left ECA 139cm/s -------- + +--------+--------+ Left ICA - proximal 97.4cm/s 32.7cm/s + +--------+--------+ Left ICA - mid 98.1cm/s 39.6cm/s + +--------+--------+ Left ICA - distal 78.6cm/s 34.6cm/s + +--------+--------+ Left vertebral 48cm/s -------- + +--------+--------+ Velocity ratios: + + + + + + Right, V sys Right, V ed Left, V sys Left, V ed + + + + + + Max ICA/dist CCA 1.39 2.68 1.3 1.82 + + + + + + (Report amended ) Electronically signed by: Amarjit Jean [id number]
[2018-07-09 10:33] LABS: Anion Gap 12.2 mEq/L (5-15); Blood Urea Nitrogen 15 mg/dL (7-18); Calcium 9.1 mg/dL (8.5-10.1); Carbon Dioxide 31 mmol/L (21.0-32.0); Chloride 104 mmol/L (98-107); Creatinine,Serum 0.63 mg/dL (0.55-1.02); Estimated Glomerular Filt Rate 94 ml/min (>60); GFR (African American) 113 ML/MIN (>60); Glucose 102 mg/dL (74-106); Potassium 4.2 mmoL/L (3.5-5.1); Sodium 143 mmol/L (136-145)
== END ==
PROVIDERS: PCP Internal Medicine Adolescent Medicine; Visit Provider Urology
DX: E78.5 Hyperlipidemia, unspecified (principal); I10 Essential (primary) hypertension; I25.10 Atherosclerotic heart disease of native coronary artery without angina pectoris; I65.29 Occlusion and stenosis of unspecified carotid artery; R55 Syncope and collapse; Z95.5 Presence of coronary angioplasty implant and graft
CPT/HCPCS: 36415; 80048; 93880

== ENCOUNTER → 2018-09-14 10:47 | Outpatient (CLI) | payer MEDICARE, SELFPAY ==
[2018-09-14 14:23] LABS: Anion Gap 11.5 mEq/L (5-15); Blood Urea Nitrogen 14 mg/dL (7-18); Calcium 8.5 mg/dL (8.5-10.1); Carbon Dioxide 30 mmol/L (21.0-32.0); Chloride 102 mmol/L (98-107); Creatinine,Serum 0.92 mg/dL (0.55-1.02); Estimated Glomerular Filt Rate 61 ml/min (>60); GFR (African American) 73 ML/MIN (>60); Glucose 112 mg/dL (74-106); Sodium 139 mmol/L (136-145)
[2018-09-14 14:24] LABS: Potassium 4.5 mmoL/L (3.5-5.1)
== END ==
PROVIDERS: PCP Internal Medicine Adolescent Medicine; Visit Provider Specialist
DX: R42 Dizziness and giddiness (principal); R55 Syncope and collapse
CPT/HCPCS: 36415; 80048

== ENCOUNTER → 2018-09-16 09:34 | Outpatient (CLI) | payer MEDICARE, SELFPAY ==
--- NOTE | 2018-09-16 09:36 | MR_ITS ---
MR head/brain wo con HISTORY: Postural dizziness, near syncope, severe dizziness with falling ITS.REASON: dizziness ORDERING PHYSICIAN: Lidya Muller MD PATIENT AGE: 68 years Comparison: 11/13/1714 TECHNIQUE: Standard multiplanar multiecho sequences are performed without contrast. Gadolinium enhancement was not performed due to patient's given allergic history to MRI contrast FINDINGS: No midline shift, mass effect, intracranial hemorrhage, or hydrocephalus. The cerebellopontine angles, cerebellum, and brainstem are unremarkable. There is no evidence of acute infarction. Periventricular and subcortical T2 white matter hyperintensity is well as scattered T2 hyperintensities within the gus are noted consistent with ischemic gliotic change from microvascular disease. Thin section axial images are obtained of the cerebellopontine angle showing no evidence of CP angle mass. The periventricular ischemic gliotic changes are slightly more prominent compared to the previous exam. The pituitary, optic chiasm, corpus callosum, and craniocervical junction have an unremarkable appearance. No mastoid effusion or sinus air-fluid level. IMPRESSION: 1. No acute intracranial findings. 2. Mild periventricular ischemic gliotic change only slightly more prominent in the basal ganglia compared to the previous exam
== END ==
PROVIDERS: PCP Internal Medicine Adolescent Medicine; Visit Provider Specialist
DX: R42 Dizziness and giddiness (principal); R55 Syncope and collapse; H91.91 Unspecified hearing loss, right ear
CPT/HCPCS: 70551

== ENCOUNTER 2018-09-23 13:30 | Outpatient (RCR) | payer MEDICARE, SELFPAY | END 2018-09-23 13:35 | disposition home or self-care (01) | LOC: PT 13:30 | PROVIDERS: Visit Provider Specialist | DX: R42 Dizziness and giddiness (principal); R55 Syncope and collapse | CPT/HCPCS: 97112; 97140; 97163 ==

== ENCOUNTER 2018-12-12 22:39 | Observation (INO) ==
[2018-12-12 23:16] LABS: ABG Base Excess 1.3 mmol/L (-2.4-2.3); ABG HCO3 26.5 mmhg (22.0-26.0); ABG Oxygen Saturation 90 % (90-100); ABG PCO2 46.1 mmhg (35.0-45.0); ABG PH 7.38 mmol/L (7.35-7.45); ABG PO2 55.1 mmhg (80-100); ABG TCO2 27.9 mmhg (23-27); Allen's Test Y; Oxygen R/A %
[2018-12-12 23:22] LABS: Basophils % 0.4 % (0.1-2.0); Eosinophils # 0.3 K/mm3 (0.0-0.4); Eosinophils % 4.7 % (0.1-12.0); Hemoglobin 14.1 g/dL (12.2-16.2); Lymphocytes # 2.1 K/mm3 (0.7-4.5); Lymphocytes % 29.8 % (10-50); Mean Corpuscular HGB Conc 32.1 g/dL (31.8-35.4); Mean Corpuscular Volume 98.9 fl (81-99); Mean Platelet Volume 6.7 fl (7.4-10.4); Monocytes # 0.4 K/mm3 (0.1-1.0); Monocytes % 5.5 % (1.7-9.3); Neutrophils # 4.3 K/mm3 (1.8-7.8); Neutrophils % 59.6 % (37.0-80.0); Platelet Count 225 K/mm3 (142-424); Red Blood Count 4.45 M/mm3 (4.20-5.40); Red Cell Distribution Width 13.2 % (11.5-17.5); White Blood Count 7.2 K/mm3 (4.8-10.8)
[2018-12-12 23:39] LABS: Alanine Aminotransferase 14 U/L (12-78); Albumin Level 3.4 gm/dL (3.4-5.0); Albumin/Globulin Ratio 0.9 (1.1-1.8); Alkaline Phosphatase 85 U/L (46-116); Anion Gap 10.1 mEq/L (5-15); Aspartate Amino Transferase 10 U/L (15-37); Bilirubin,Total 0.2 mg/dL (0.2-1.0); Blood Urea Nitrogen 15 mg/dL (7-18); Calcium 9.1 mg/dL (8.5-10.1); Carbon Dioxide 31 mmol/L (21.0-32.0); Chloride 102 mmol/L (98-107); Glucose 94 mg/dL (74-106); Sodium 139 mmol/L (136-145); Total Protein,Serum 7.4 gm/dL (6.4-8.2)
--- NOTE | 2018-12-13 00:34 | Emergency Department Note ---
ED Disposition Clinical Impression: Chest pain due to coronary artery disease Disposition: Admitted as Observation Condition on Discharge: Good - Critical Care Critical Care Time: No Attestation: On 12/12/18, the high probability of a clinically significant, sudden or life threatening deterioration of the following system(s) required my full and direct attention, intervention and personal management. The time I documented below is in addition to time spent performing reported procedures but includes the following listed in this critical care notation. Medical Decision Making - Medical Records Medical records reviewed: Yes: I reviewed the patient's medical records. - Jose Elias Inquiry Pt receiving controlled substance: No Vital Signs: 12/12/18 22:39 12/12/18 23:20 12/13/18 00:42 Temperature 98.1 F Temperature Source Oral Pulse Rate 81 Pulse Rate [Right Radial] 75 73 Respiratory Rate 17 18 Blood Pressure [Right Arm] 140/76 124/79 Blood Pressure Mean [Right Arm] 97 94 Blood Pressure Source [Right Arm] Automatic Cuff Blood Pressure Position [Right Arm] Sitting 02 Sat by Pulse Oximetry 93 L 95 Oxygen Delivery Method Room Air - Lab Data Lab results reviewed: Yes: I reviewed the patient's lab results. Lab Results 12/12/18 23:06: WBC 7.2, RBC 4.45, Hgb 14.1, Hct 44.0, MCV 98.9, MCH 31.7 H, MCHC 32.1, RDW 13.2, Plt Count 225, MPV 6.7 L, Neut % (Auto) 59.6, Lymph % (Auto) 29.8, Tift % (Auto) 5.5, Eos % (Auto) 4.7, Baso % (Auto) 0.4, Neut # (Auto) 4.3, Lymph # (Auto) 2.1, Tift # (Auto) 0.4, Eos # (Auto) 0.3, Baso # (Aut o) 0.0 12/12/18 23:06: Sodium 139, Potassium 4.1, Chloride 102, Carbon Dioxide 31, Anion Gap 10.1, BUN 15, Creatinine 1.13 H, Estimated Creat Clear 61, Estimated GFR 48 L, Est GFR ( Amer) 58 L, Glucose 94, Calcium 9.1, Total Bilirubin 0.2, AST 10 L, ALT 14, Alkaline Phosphatase 85, Troponin I < 0.02, Total Protein 7.4, Albumin 3.4, Globulin 4.0 H, Albumin/Globulin Ratio 0.9 L 12/12/18 23:06: Lactate 1.2 12/12/18 23:15: Specimen Source R/r, O2 % R/a, ABG pH 7.38, ABG pCO2 46.1 H, ABG pO2 55.1 L, ABG HCO3 26.5 H, ABG Total CO2 27.9 H, ABG O2 Saturation 90, ABG Base Excess 1.3, Amarjit Test Y Result diagrams: 12/12/18 23:06 12/12/18 23:06 Orders (Tests/Meds): ED MEDICATIONS Generic Name Dose Route Start Last Admin Trade Name Freq PRN Reason Stop Dose Admin Sodium Chloride 3 ml 12/12/18 22:47 Sodium Chloride 3% 15ml [facility] 01/11/19 22:46 ONCE PRN INDUCE SPUTUM COLLECTION Discontinued Medications Generic Name Dose Route Start Last Admin Trade Name Freq PRN Reason Stop Dose Admin Albuterol/Ipratropium 3 ml 12/12/18 22:47 12/12/18 23:20 Duoneb 3ml [facility] 12/12/18 22:48 3 ml ONCE ONE Administration Methylprednisolone Sodium Succinate 125 mg 12/12/18 22:47 12/12/18 23:23 Solu-Medrol 125mg/2ml Vial IV 12/12/18 22:48 125 mg ONCE ONE Administration ORDERS Category Date Time Status CT head/brain wo con Stat Cat Scan 12/12/18 22:46 Taken XR chest 2V Stat Exams 12/13/18 00:01 Taken Blood Culture Stat Micro 12/12/18 23:06 Received Sputum Culture & Gram Stain Stat Micro 12/12/18 23:06 Results ABG [Arterial Blood Gas] Stat RT 12/12/18 22:52 Ordered - Radiology Data #1 Image(s): Chest Image Reviewed: Yes I reviewed the patient's radiology image Preliminary Findings: Normal/NAD - ECG Data Tracing #1 Normal Sinus Rhythm: Yes Ischemic changes: non-specific ST-T wave changes - Physician Consults Physician Consulted: rainer Reason -: Admission Chest Pain HPI - General Chief Complaint: Dizziness Stated Complaint: dizziness Time Seen by Provider: 12/13/18 00:00 Mode of Arrival: Ambulatory Source of Information: Patient, Spouse, Relative, Medical Record Limitations: No Limitations Description of Symptoms (Recalled from ER Triage Doc. by RN): at 1830 patient was home and became dizzy and then started having a "funny feeling" in her left chest that radiated into her left arm and elbow. - History of Present Illness HPI narrative: pt with acute ant chest pain with rad to lt upper ext with assoc dizzyness- has hx of pain with prev mi - MD complaint: chest pain indicative of cardiac Onset (ago): hour(s) Duration: now resolved Activity at onset: during rest Pain location: left chest Severity: similar to previous episodes Quality: sharp Pain radiation: LUE Risk Factors for CAD: Hypertension, Family Hx of CAD Treatments prior to or on arrival for Cardiac Chest Pain: none - AMANDA Score for Non-Stemi Age of Patient: 60-69 years old Heart Rate: 70-89 bpm Systolic Blood Pressure: 140-159 mmHg Serum Creatinine: 0.80-1.19 mg/dl CHF Killip Class: I-No CHF Other Risk Factors: None Non-Stemi Risk Score: 98 - Related Data Prior Cardiac Testing/Procedures: Cardiac Angiogram On Oral Contraceptives: No Home Medications Medication Instructions Recorded Confirmed alprazolam 1 mg tablet 1 mg PO TID tab 05/18/17 10/11/18 aspirin 81 mg tablet,delayed 81 mg PO DAILY 05/18/17 10/11/18 release duloxetine 30 mg capsule,delayed 30 mg PO HS 05/18/17 10/11/18 release Albuterol Sulfate [Albuterol HFA 2 puffs IH QIDP PRN 05/22/18 10/11/18 Inhaler] Omeprazole [Omeprazole 40mg 40 mg PO DAILY 05/22/18 10/11/18 Capsule] Ondansetron HCl [Ondansetron 4mg 4 mg PO Q8HP PRN 05/22/18 10/11/18 Tablet] Tiotropium [place] [Spiriva 2 puffs IH DAILY 05/22/18 10/11/18 Respimat] Trazodone HCl 200 mg PO HS 05/22/18 10/11/18 raNITIdine HCl [Ranitidine HCl] 300 mg PO BID 05/22/18 10/11/18 bisoprolol fumarate 5 mg tablet 2.5 mg PO DAILY #15 tab 09/06/18 10/11/18 Previous Rx's Medication Instructions Recorded hydrochlorothiazide 25 mg tablet 25 mg PO DAILY #30 tab 07/05/18 atorvastatin 40 mg tablet 40 mg PO QHS #90 tab 08/25/18 clopidogrel 75 mg tablet 75 mg PO DAILY #90 tab 11/01/18 meclizine 25 mg tablet 25 mg PO TID #60 tab 11/01/18 ranolazine ER 500 mg 500 mg PO BID #180 tab 11/01/18 tablet,extended release,12 hr Allergies Allergy/AdvReac Type Severity Reaction Status Date / Time promethazine Allergy Unknown Verified 12/12/18 22:46 Iodinated Contrast Media - Allergy Verified 12/12/18 22:46 Oral and [facility] History - Hepatitis A Screen Drug use history?: No High risk sexual behaviors?: No History of sexually transmitted infection?: No Currently employed?: No Childcare worker?: No Do you have indoor plumbing?: Yes Do you have electricity?: Yes Attestation statement:: This patient has been screened for Hepatitis A risk factors. I have reviewed the patient's past medical history: Yes Medical History: Reports:: Anxiety, Chronic Obstructive Pulmonary Disease (COPD), Coronary Artery Disease, Cerebrovascular Accident, Depression, Hyperlipidemia, Hypertension, Lung Disease Denies:: Diabetes Mellitus Type 1, Diabetes Mellitus Type 2, Internal Pacemaker, Seizures Other Medical History: Reports: Arthritis, Other Laterality Cases: Bilateral: Arthroscopy Knee Other Surgeries: Yes: Cardiac Catheterization, Colonoscopy, Coronary Stent, EGD (11/17/17), Hysterectomy-Total, Other. No: Pacemaker Amputation: No Fractures: No - Social History Smoking Status: Current every day smoker Tobacco Type: cigarettes # Packs/Day (cigarettes): 1 #Yrs smoked (if former smoker): 50 Alcohol Intake: never Alcohol Intake Frequency:: other Substance Use Type: denies use Occupational Status: retired Housing: house Household Members: spouse - Psychiatric History Pschychiatric History:: Reports:: Anxiety, Depression Family Hx:: Stroke, Diabetes ROS Obtained: Yes All systems reviewed & no additional complaints - Constitutional Constitutional: Denies fever(s) - Eyes Eyes: Denies change in vision - ENT Ears, Nose, Mouth, and Throat: Denies sore throat - Cardiovascular Cardiovascular: Reports as per HPI, Reports chest pain, Reports chest pain at rest, Denies dyspnea - Respiratory Respiratory: No cough - Gastrointestinal Gastrointestingal: Denies: abdominal pain - Genitourinary Female Genitourinary: Denies hematuria - Musculoskeletal Musculoskeletal: Denies joint pain, Denies joint swelling - Integumentary/Breasts Skin/Breast: Denies rash - Neurologic Neurologic: Denies seizure-like activity Physical Exam - General General appearance: alert - Head Head exam: normocephalic - Eye Eye exam: Present: PERRL, EOMI - ENT ENT exam: Present: mucous membranes dry - Neck Neck exam: Present: trachea midline - Respiratory Respiratory exam: Absent: respiratory distress - Cardiovascular Cardiovascular exam: Present: regular rate, systolic murmur, +S4 - Abdominal Exam Abdominal exam: Present: soft - Extremities Exam Extremities exam: Absent: calf tenderness - Neurological Exam Neurological exam: Present: alert, oriented X3, CN II-XII intact - Psychiatric Psychiatric exam: Present: normal affect - Skin Skin exam: Absent: rash
[2018-12-13 05:06] LABS: Hematocrit 40.3 % (37.0-47.0); Hemoglobin 12.9 g/dL (12.2-16.2); Mean Corpuscular Volume 98.7 fl (81-99); Red Blood Count 4.09 M/mm3 (4.20-5.40); Red Cell Distribution Width 13.3 % (11.5-17.5); White Blood Count 6.5 K/mm3 (4.8-10.8)
[2018-12-13 05:07] LABS: Basophils % 0.2 % (0.1-2.0); Eosinophils % 0.2 % (0.1-12.0); Lymphocytes # 0.6 K/mm3 (0.7-4.5); Lymphocytes % 9.2 % (10-50); Mean Platelet Volume 6.7 fl (7.4-10.4); Monocytes # 0.1 K/mm3 (0.1-1.0); Monocytes % 1.6 % (1.7-9.3); Neutrophils # 5.7 K/mm3 (1.8-7.8); Neutrophils % 88.2 % (37.0-80.0); Platelet Count 192 K/mm3 (142-424)
[2018-12-13 05:10] LABS: Anion Gap 10.6 mEq/L (5-15); Blood Urea Nitrogen 13 mg/dL (7-18); Carbon Dioxide 29 mmol/L (21.0-32.0); Chloride 105 mmol/L (98-107); Sodium 140 mmol/L (136-145)
[2018-12-13 05:15] LABS: Glucose 154 mg/dL (74-106)
[2018-12-13 05:18] LABS: Lymphocytes % 5 % (10-50); Neutrophils % 90 % (42-76); RBC Morphology Normal; Rouleaux 1+; Total Cells Counted 100
--- NOTE | 2018-12-13 07:52 | History & Physical Report ---
*Admission Date: 12/13/18 *Chief complaint: Chest pain with cough *History of present illness: 68-year-old white female with history of coronary disease as well as multiple other medical problems including COPD, recurrent pneumonias, chronic arthritis, neuropathy, anxiety disorder and severe tobacco abuse, who presented to the emergency department with a chief complaint of anterior chest pain that felt "like it did before my stent." Initial troponins were negative but given her significant risk factors and abnormal catheterization report from April she was admitted to hospital for serial enzymes and cardiology consultation. This morning she states she feels somewhat better. [facility] History I have reviewed the patient's past medical history: Yes Medical History: Reports:: Anxiety, Chronic Obstructive Pulmonary Disease (COPD), Coronary Artery Disease, Cerebrovascular Accident, Depression, Hyperlipidemia, Hypertension, Lung Disease, Myocardial Infarction Denies:: Diabetes Mellitus Type 1, Diabetes Mellitus Type 2, Internal Pacemaker, Seizures *Have you ever received a pneumonia vaccine?: Yes *Have you received a flu vaccine this season?: No Other Medical History: Reports: Arthritis, Other Laterality Cases: Bilateral: Arthroscopy Knee Other Surgeries: Yes: Cardiac Catheterization, Colonoscopy, Coronary Stent, EGD (11/17/17), Hysterectomy-Total, Other. No: Pacemaker Amputation: No Fractures: No - *Social History Educational Level: Completed High School Smoking Status: Current every day smoker Tobacco Type: cigarettes # Packs/Day (cigarettes): 1 #Yrs smoked (if former smoker): 50 Alcohol Intake: never Alcohol Intake Frequency:: other Substance Use Type: denies use *Occupational Status:: retired Housing: house Household Members: spouse *Travel in the last 8 weeks: None - Psychiatric History Expresses thoughts of harming self/others: None Suicide Plan Description: No Plan Pschychiatric History:: Reports:: Anxiety, Depression Family Hx:: Stroke, Diabetes Review of Systems - Review of Systems Review of systems:: pertinent systems reviewed and negative unless documented below - Constitutional Reports fatigue, Denies anorexia, Denies fever(s), Denies headache(s) - Eyes Denies blind spots - ENT Denies abnormal hearing - *Cardiovascular Reports chest pain, Reports chest pain at rest, Reports shortness of breath, Reports shortness of breath with activity - *Respiratory Reports excessive phlegm production, Denies change in phlegm color - *Gastrointestinal Denies abdominal pain, Denies change in stools - *Musculoskeletal Denies abnormal walking, Denies joint pain - *Neurologic Denies seizure-like activity Meds Home Medications Medication Instructions Recorded Confirmed Type alprazolam 1 mg tablet 1 mg PO TID tab 05/18/17 12/13/18 History aspirin 81 mg tablet,delayed 81 mg PO DAILY 05/18/17 12/13/18 History release duloxetine 30 mg capsule,delayed 30 mg PO BID 05/18/17 12/13/18 History release Albuterol Sulfate [Albuterol HFA 2 puffs IH QIDP PRN 05/22/18 12/13/18 History Inhaler] Omeprazole [Omeprazole 40mg 40 mg PO DAILY 05/22/18 12/13/18 History Capsule] Ondansetron HCl [Ondansetron 4mg 4 mg PO Q8HP PRN 05/22/18 12/13/18 History Tablet] Tiotropium [place] [Spiriva 2 puffs IH DAILY 05/22/18 12/13/18 History Respimat] Trazodone HCl 300 mg PO HS 05/22/18 12/13/18 History hydrochlorothiazide 25 mg tablet 25 mg PO DAILY #30 tab 07/05/18 12/13/18 Rx atorvastatin 40 mg tablet 40 mg PO QHS #90 tab 08/25/18 12/13/18 Rx bisoprolol fumarate 5 mg tablet 2.5 mg PO DAILY #15 tab 09/06/18 12/13/18 History clopidogrel 75 mg tablet 75 mg PO DAILY #90 tab 11/01/18 12/13/18 Rx Meclizine HCl [Verticalm] 25 mg PO TID PRN 12/13/18 12/13/18 History Ranolazine [Ranexa 500mg ER tablet] 500 mg PO BID 12/13/18 12/13/18 History Allergies Allergy/AdvReac Type Severity Reaction Status Date / Time promethazine Allergy Unknown Verified 12/12/18 22:46 Iodinated Contrast Media - Allergy Verified 12/12/18 22:46 Oral and Exam Vital signs and Labs for Last 24 Hours: Temp Pulse Resp BP Pulse Ox 97.7 F 70 17 118/65 93 L 12/13/18 04:00 12/13/18 04:11 12/13/18 04:11 12/13/18 04:00 12/13/18 04:11 Laboratory Results - last 24 hr 12/12/18 23:06: WBC 7.2, RBC 4.45, Hgb 14.1, Hct 44.0, MCV 98.9, MCH 31.7 H, MCHC 32.1, RDW 13.2, Plt Count 225, MPV 6.7 L, Neut % (Auto) 59.6, Lymph % (Auto) 29.8, [place] % (Auto) 5.5, Eos % (Auto) 4.7, Baso % (Auto) 0.4, Neut # (Auto) 4.3, Lymph # (Auto) 2.1, [place] # (Auto) 0.4, Eos # (Auto) 0.3, Baso # ( Auto) 0.0 12/12/18 23:06: Sodium 139, Potassium 4.1, Chloride 102, Carbon Dioxide 31, Anion Gap 10.1, BUN 15, Creatinine 1.13 H, Estimated Creat Clear 61, Estimated GFR 48 L, Est GFR ( Amer) 58 L, Glucose 94, Calcium 9.1, Total Bilirubin 0.2, AST 10 L, ALT 14, Alkaline Phosphatase 85, Troponin I < 0.02, Total Protein 7.4, Albumin 3.4, Globulin 4.0 H, Albumin/Globulin Ratio 0.9 L 12/12/18 23:06: Lactate 1.2 12/12/18 23:15: Specimen Source R/r, O2 % R/a, ABG pH 7.38, ABG pCO2 46.1 H, ABG pO2 55.1 L, ABG HCO3 26.5 H, ABG Total CO2 27.9 H, ABG O2 Saturation 90, ABG Base Excess 1.3, Amarjit Test Y 12/13/18 04:40: WBC 6.5, RBC 4.09 L, Hgb 12.9, Hct 40.3, MCV 98.7, MCH 31.6 H, MCHC 32.0, RDW 13.3, Plt Count 192, MPV 6.7 L, Neut % (Auto) 88.2 H, Lymph % ( Auto) 9.2 L, [place] % (Auto) 1.6 L, Eos % (Auto) 0.2, Baso % (Auto) 0.2, Neut # (Auto) 5.7, Lymph # (Auto) 0.6 L, [place] # (Auto) 0.1, Eos # (Auto) 0.0, Baso # (Auto) 0.0, Total Counted 100, Neutrophils % (Manual) 90 H, Band Neutrophils % 5.0, Lymphocytes % (Manual) 5 L, Platelet Estimate Normal, RBC Morphology Normal, Rouleaux 1+ 12/13/18 04:40: Sodium 140, Potassium 4.6, Chloride 105, Carbon Dioxide 29, Anion Gap 10.6, BUN 13, Creatinine 0.87 D, Estimated Creat Clear 70, Estimated GFR 65, Est GFR ( Amer) 78 D, Glucose 154 H D, Calcium 9.0, Magnesium 1.9, Troponin I < 0.02 I & O for Last 24 hours: Intake & Output 12/10/18 12/11/18 12/12/18 12/13/18 11:59 11:59 11:59 11:59 Intake Total 207 / 207 Balance 207 / 207 Weight 185 lb Microbiology Reports for the Last 24 Hours: Microbiology 12/12/18 23:06 Sputum - Expectorated Sputum Gram Stain - Final Narrative: Patient is alert, oriented x3, very disgruntled which is her baseline affect. ENT exam otherwise clear except for missing teeth. No carotid bruit. Heart rate regular. Abdomen soft and nontender. Lungs have good air movement expect for smoker's rhonchi in both bases. This is unchanged over her baseline. No distal perfusion deficits. Wearing compression stockings. Neurologic exam intact. Assessment and Plan (1) Chest pressure Current visit: No Status: Acute Category: Medical Code(s): R07.89 - Other chest pain Given significant risk factors we will have cardiology evaluate patient. No changes in plan otherwise. (2) Dyspnea Current visit: No Status: Acute Qualifiers: Category: Medical Code(s): R06.00 - Dyspnea, unspecified Excessive sputum production. This seems to be at baseline. Check sputum culture but no antibiotics at this point.
--- NOTE | 2018-12-13 08:15 | Pharmacy Consult Notes ---
[facility] Pharmacy VTE Monitoring - Patient Demographics Admission date: 12/13/18 Report Date: 12/13/18 Time: 08:15 Allergies/Adverse Reactions: Patient Allergies promethazine Allergy (Unknown, Verified 12/12/18 22:46) Iodinated Contrast Media - Oral and Allergy (Verified 12/12/18 22:46) Height: 1.75 m Weight: 83.915 kg Patient Problems: Current Active Problems Chest pain due to coronary artery disease (Acute) - VTE Risk Labs: VTE Related Lab Results Hgb 12.9 g/dL (12.2-16.2) 12/13/18 04:40 Hct 40.3 % (37.0-47.0) 12/13/18 04:40 Plt Count 192 K/mm3 (142-424) 12/13/18 04:40 BUN 13 mg/dL (7-18) 12/13/18 04:40 Creatinine 0.87 mg/dL (0.55-1.02) D 12/13/18 04:40 Estimated Creat Clear 70 mL/min (50-200) 12/13/18 04:40 Was VTE Risk Assessment Performed: Yes VTE Score: 9 VTE Risk Level: Moderate Risk - Prophylaxis VTE Prophylaxis Ordered?: Yes Types of VTE Prophylaxis: TEDS Knee High Location of Applied Device: Bilateral Lower Extremeties - VTE Diagnosis Confirmed Treatment or plan recommended: Continue Current Treatment
--- NOTE | 2018-12-13 08:35 | Consult Report ---
History of Present Illness Consult date: 12/13/18 Requesting physician: Red Koehler Consult reason: chest pain Chief complaint: chest pain, left arm pain Additional Medical History:: 1. CAD A. Cardiac cath, 06/2016, 2 TERESA to prox/mid LAD, chronic occluded proximal dominant RCA with large extensive collateralization to the distal RCA via a large Kugel collateral off the circumflex artery. B. Cardiac catheterization, 04/2018, drug-eluting stent placed to the ostial proximal left main artery. Left anterior descending artery stent widely patent. Left ventricular ejection fraction 60%. LVEDP 25 mmHg. C. Recurrent angina similar to 04/2018 chest pain, 11/2018 2. Tobacco use A. COPD 3. Hypertension 4. Hyperlipidemia 5. Carotid artery disease A. History of CVA prior to right CEA many years ago History of present illness: 68-year-old white female with history of coronary disease as well as multiple other medical problems including COPD, recurrent pneumonias, chronic arthritis, neuropathy, anxiety disorder and severe tobacco abuse, who presented to the emergency department with a chief complaint of anterior chest pain that felt "like it did before my stent." Initial troponins were negative but given her significant risk factors and abnormal catheterization report from April she was admitted to hospital for serial enzymes and cardiology consultation. This morning she states she feels somewhat better. The above per Dr. Koehler Patient is adamant that the symptoms she had last evening including left arm discomfort were the same as she had in April but not quite as severe. She also has some pleuritic type pain in the left side and back area that is reproducible with movement and or deep breathing/cough. Troponins have returned normal. EKG is sinus with no acute changes. [facility] History Medical History: Reports:: Anxiety, Chronic Obstructive Pulmonary Disease (COPD), Coronary Artery Disease, Cerebrovascular Accident, Depression, Hyperlipidemia, Hypertension, Lung Disease, Myocardial Infarction Denies:: Diabetes Mellitus Type 1, Diabetes Mellitus Type 2, Internal Pacemaker, Seizures *Have you ever received a pneumonia vaccine?: Yes *Have you received a flu vaccine this season?: No Other Medical History: Reports: Arthritis, Other Laterality Cases: Bilateral: Arthroscopy Knee Other Surgeries: Yes: Cardiac Catheterization, Colonoscopy, Coronary Stent, EGD (11/17/17), Hysterectomy-Total, Other. No: Pacemaker Amputation: No Fractures: No - *Social History Educational Level: Completed High School Smoking Status: Current every day smoker Tobacco Type: cigarettes # Packs/Day (cigarettes): 1 #Yrs smoked (if former smoker): 50 Alcohol Intake: never Alcohol Intake Frequency:: other Substance Use Type: denies use *Occupational Status:: retired Housing: house Household Members: spouse *Travel in the last 8 weeks: None - Psychiatric History Expresses thoughts of harming self/others: None Suicide Plan Description: No Plan Pschychiatric History:: Reports:: Anxiety, Depression Family Hx:: Stroke, Diabetes Meds Home Medications Medication Instructions Recorded Confirmed Type alprazolam 1 mg tablet 1 mg PO TID tab 05/18/17 12/13/18 History aspirin 81 mg tablet,delayed 81 mg PO DAILY 05/18/17 12/13/18 History release duloxetine 30 mg capsule,delayed 30 mg PO BID 05/18/17 12/13/18 History release Albuterol Sulfate [Albuterol HFA 2 puffs IH QIDP PRN 05/22/18 12/13/18 History Inhaler] Omeprazole [Omeprazole 40mg 40 mg PO DAILY 05/22/18 12/13/18 History Capsule] Ondansetron HCl [Ondansetron 4mg 4 mg PO Q8HP PRN 05/22/18 12/13/18 History Tablet] Tiotropium [place] [Spiriva 2 puffs IH DAILY 05/22/18 12/13/18 History Respimat] Trazodone HCl 300 mg PO HS 05/22/18 12/13/18 History hydrochlorothiazide 25 mg tablet 25 mg PO DAILY #30 tab 07/05/18 12/13/18 Rx atorvastatin 40 mg tablet 40 mg PO QHS #90 tab 08/25/18 12/13/18 Rx bisoprolol fumarate 5 mg tablet 2.5 mg PO DAILY #15 tab 09/06/18 12/13/18 History clopidogrel 75 mg tablet 75 mg PO DAILY #90 tab 11/01/18 12/13/18 Rx Meclizine HCl [Verticalm] 25 mg PO TID PRN 12/13/18 12/13/18 History Ranolazine [Ranexa 500mg ER tablet] 500 mg PO BID 12/13/18 12/13/18 History Allergies Allergy/AdvReac Type Severity Reaction Status Date / Time promethazine Allergy Unknown Verified 12/12/18 22:46 Iodinated Contrast Media - Allergy Verified 12/12/18 22:46 Oral and Review of Systems - *Cardiovascular Reports chest pain, Reports shortness of breath with activity - *Respiratory Reports cough, Reports shortness of breath with activity - *Gastrointestinal Denies abdominal pain, Denies nausea, Denies vomiting - *Genitourinary Denies blood in urine - *Musculoskeletal Denies joint pain, Denies back pain - *Neurologic Denies abnormal walking, Denies abnormal hearing, Denies headache(s), Denies seizure-like activity Exam Vital signs and Labs for Last 24 Hours: Temp Pulse Resp BP Pulse Ox 97.7 F 70 17 118/65 93 L 12/13/18 04:00 12/13/18 04:11 12/13/18 04:11 12/13/18 04:00 12/13/18 04:11 Laboratory Results - last 24 hr 12/12/18 23:06: WBC 7.2, RBC 4.45, Hgb 14.1, Hct 44.0, MCV 98.9, MCH 31.7 H, MCHC 32.1, RDW 13.2, Plt Count 225, MPV 6.7 L, Neut % (Auto) 59.6, Lymph % (Auto) 29.8, [place] % (Auto) 5.5, Eos % (Auto) 4.7, Baso % (Auto) 0.4, Neut # (Auto) 4.3, Lymph # (Auto) 2.1, [place] # (Auto) 0.4, Eos # (Auto) 0.3, Baso # (Auto) 0.0 12/12/18 23:06: Sodium 139, Potassium 4.1, Chloride 102, Carbon Dioxide 31, Anion Gap 10.1, BUN 15, Creatinine 1.13 H, Estimated Creat Clear 61, Estimated GFR 48 L, Est GFR ( Amer) 58 L, Glucose 94, Calcium 9.1, Total Bilirubin 0.2, AST 10 L, ALT 14, Alkaline Phosphatase 85, Troponin I < 0.02, Total Protein 7.4, Albumin 3.4, Globulin 4.0 H, Albumin/Globulin Ratio 0.9 L 12/12/18 23:06: Lactate 1.2 12/12/18 23:15: Specimen Source R/r, O2 % R/a, ABG pH 7.38, ABG pCO2 46.1 H, ABG pO2 55.1 L, ABG HCO3 26.5 H, ABG Total CO2 27.9 H, ABG O2 Saturation 90, ABG Base Excess 1.3, Amarjit Test Y 12/13/18 04:40: WBC 6.5, RBC 4.09 L, Hgb 12.9, Hct 40.3, MCV 98.7, MCH 31.6 H, MCHC 32.0, RDW 13.3, Plt Count 192, MPV 6.7 L, Neut % (Auto) 88.2 H, Lymph % (Auto) 9.2 L, [place] % (Auto) 1.6 L, Eos % (Auto) 0.2, Baso % (Auto) 0.2, Neut # (Auto) 5.7, Lymph # (Auto) 0.6 L, [place] # (Auto) 0.1, Eos # (Auto) 0.0, Baso # (Auto) 0.0, Total Counted 100, Neutrophils % (Manual) 90 H, Band Neutrophils % 5.0, Lymphocytes % (Manual) 5 L, Platelet Estimate Normal, RBC Morphology Normal, Rouleaux 1+ 12/13/18 04:40: Sodium 140, Potassium 4.6, Chloride 105, Carbon Dioxide 29, Anion Gap 10.6, BUN 13, Creatinine 0.87 D, Estimated Creat Clear 70, Estimated GFR 65, Est GFR ( Amer) 78 D, Glucose 154 H D, Calcium 9.0, Magnesium 1.9, Troponin I < 0.02 12/13/18 07:42: Troponin I < 0.02 I & O for Last 24 hours: Intake & Output 12/10/18 12/11/18 12/12/18 12/13/18 11:59 11:59 11:59 11:59 Intake Total 207 / 207 Balance 207 / 207 Weight 185 lb Microbiology Reports for the Last 24 Hours: Microbiology 12/12/18 23:06 Sputum - Expectorated Sputum Gram Stain - Final - *Routine HEENT Exam Head: Present: normocephalic Eye: Present: EOMI, PERRL ENT: Present: mucous membranes moist - *Routine Neck Exam Present: supple. Absent: JVD, carotid bruit - *Routine Respiratory Exam Present: decreased breath sounds, rhonchi, diminished air movement. Absent: accessory muscle use, rales, wheezes - *Routine Cardiovascular Exam Present: RRR. Absent: murmur, gallop, rubs - *Routine Abdominal Exam Present: soft. Absent: tenderness, distended, guarding - *Routine Extremities Exam Absent: edema, calf tenderness - *Routine Neurological Exam Present: alert, oriented X3, moving all extremities Assessment and Plan (1) Chest pressure Current visit: No Status: Acute Category: Medical Code(s): R07.89 - Other chest pain (2) Dyspnea Current visit: No Status: Acute Qualifiers: Category: Medical Code(s): R06.00 - Dyspnea, unspecified - Assessment and plan all Dx Assessment and Plan for all problems:: 1. Unstable angina pectoris in a patient with known left main coronary artery disease. Plan to proceed with left heart catheterization to evaluate. Patient and are in agreement, risks, benefits and procedure explained. 2. Further recommendations pending above results. 3. Continue aspirin, atorvastatin, bisoprolol and Plavix
--- NOTE | 2018-12-13 13:43 | Discharge Summary ---
General - General Admission date:: 12/13/18 Discharge date: 12/13/18 HPI HPI: 68-year-old white female with history of coronary disease as well as multiple other medical problems including COPD, recurrent pneumonias, chronic arthritis, neuropathy, anxiety disorder and severe tobacco abuse, who presented to the emergency department with a chief complaint of anterior chest pain that felt "like it did before my stent." Initial troponins were negative but given her significant risk factors and abnormal catheterization report from April she was admitted to hospital for serial enzymes and cardiology consultation. This morning she states she feels somewhat better. Hospital Course Hospital Course: Patient did well through the night, ruled out for myocardial infarction. Subjected to left heart catheterization which revealed no evidence of recurrent disease and patent stents. Preserved ejection fraction. Patient will be discharged home. She will be instructed to use heating pads and her COPD treatment. We will see her in our office in 3 days and consider adding nebulizer treatments. Objective Vital signs: Temp Pulse Resp BP Pulse Ox 97.8 F 69 15 102/59 L 96 12/13/18 12:05 12/13/18 12:35 12/13/18 12:35 12/13/18 12:35 12/13/18 12:35 Narrative: Alert, oriented x3. Lungs have good air movement. Heart rate regular. Please see exam from this morning for further details. Results Labs on day of discharge: Labs from last 24 hours 12/13/18 12/13/18 12/13/18 07:42 04:40 04:40 WBC 6.5 RBC 4.09 L Hgb 12.9 Hct 40.3 MCV 98.7 MCH 31.6 H MCHC 32.0 RDW 13.3 Plt Count 192 MPV 6.7 L Neut % (Auto) 88.2 H Lymph % (Auto) 9.2 L [place] % (Auto) 1.6 L Eos % (Auto) 0.2 Baso % (Auto) 0.2 Neut # (Auto) 5.7 Lymph # (Auto) 0.6 L [place] # (Auto) 0.1 Eos # (Auto) 0.0 Baso # (Auto) 0.0 Total Counted 100 Neutrophils % (Manual) 90 H Band Neutrophils % 5.0 Lymphocytes % (Manual) 5 L Platelet Estimate Normal RBC Morphology Normal Rouleaux 1+ Specimen Source O2 % ABG pH ABG pCO2 ABG pO2 ABG HCO3 ABG Total CO2 ABG O2 Saturation ABG Base Excess Amarjit Test Sodium 140 Potassium 4.6 Chloride 105 Carbon Dioxide 29 Anion Gap 10.6 BUN 13 Creatinine 0.87 D Estimated Creat Clear 70 Estimated GFR 65 Est GFR ( Amer) 78 D Glucose 154 H D Lactate Calcium 9.0 Magnesium 1.9 Total Bilirubin AST ALT Alkaline Phosphatase Troponin I < 0.02 < 0.02 Total Protein Albumin Globulin Albumin/Globulin Ratio 12/12/18 12/12/18 12/12/18 23:15 23:06 23:06 WBC RBC Hgb Hct MCV MCH MCHC RDW Plt Count MPV Neut % (Auto) Lymph % (Auto) [place] % (Auto) Eos % (Auto) Baso % (Auto) Neut # (Auto) Lymph # (Auto) [place] # (Auto) Eos # (Auto) Baso # (Auto) Total Counted Neutrophils % (Manual) Band Neutrophils % Lymphocytes % (Manual) Platelet Estimate RBC Morphology Rouleaux Specimen Source R/r O2 % R/a ABG pH 7.38 ABG pCO2 46.1 H ABG pO2 55.1 L ABG HCO3 26.5 H ABG Total CO2 27.9 H ABG O2 Saturation 90 ABG Base Excess 1.3 Amarjit Test Y Sodium 139 Potassium 4.1 Chloride 102 Carbon Dioxide 31 Anion Gap 10.1 BUN 15 Creatinine 1.13 H Estimated Creat Clear 61 Estimated GFR 48 L Est GFR ( Amer) 58 L Glucose 94 Lactate 1.2 Calcium 9.1 Magnesium Total Bilirubin 0.2 AST 10 L ALT 14 Alkaline Phosphatase 85 Troponin I < 0.02 Total Protein 7.4 Albumin 3.4 Globulin 4.0 H Albumin/Globulin Ratio 0.9 L 12/12/18 23:06 WBC 7.2 RBC 4.45 Hgb 14.1 Hct 44.0 MCV 98.9 MCH 31.7 H MCHC 32.1 RDW 13.2 Plt Count 225 MPV 6.7 L Neut % (Auto) 59.6 Lymph % (Auto) 29.8 [place] % (Auto) 5.5 Eos % (Auto) 4.7 Baso % (Auto) 0.4 Neut # (Auto) 4.3 Lymph # (Auto) 2.1 [place] # (Auto) 0.4 Eos # (Auto) 0.3 Baso # (Auto) 0.0 Total Counted Neutrophils % (Manual) Band Neutrophils % Lymphocytes % (Manual) Platelet Estimate RBC Morphology Rouleaux Specimen Source O2 % ABG pH ABG pCO2 ABG pO2 ABG HCO3 ABG Total CO2 ABG O2 Saturation ABG Base Excess Amarjit Test Sodium Potassium Chloride Carbon Dioxide Anion Gap BUN Creatinine Estimated Creat Clear Estimated GFR Est GFR ( Amer) Glucose Lactate Calcium Magnesium Total Bilirubin AST ALT Alkaline Phosphatase Troponin I Total Protein Albumin Globulin Albumin/Globulin Ratio DS: Diagnosis - Discharge Diagnosis (1) Chest pressure Status: Resolved (2) Dyspnea Status: Resolved Discharge Plan - Patient Discharge Instructions ACTIVITY: Continue current activity DIET: continue same diet Patient Instructions: Angina, DI for Angina, DI for Surgical Site Infection - Follow up Plan Follow up with: Julia Johnson APRN [Nurse Practitioner] - 12/16/18 Disposition: Home, Self-Shelter Medications: Home Medications Medication Instructions Recorded Confirmed Type alprazolam 1 mg tablet 1 mg PO TID tab 05/18/17 12/13/18 History aspirin 81 mg tablet,delayed 81 mg PO DAILY 05/18/17 12/13/18 History release Albuterol Sulfate [Albuterol HFA 2 puffs IH QIDP PRN 05/22/18 12/13/18 History Inhaler] Omeprazole [Omeprazole 40mg 40 mg PO DAILY 05/22/18 12/13/18 History Capsule] Ondansetron HCl [Ondansetron 4mg 4 mg PO Q8HP PRN 05/22/18 12/13/18 History Tablet] Tiotropium [place] [Spiriva 2 puffs IH DAILY 05/22/18 12/13/18 History Respimat] Trazodone HCl 150 mg PO HS 05/22/18 12/13/18 History hydrochlorothiazide 25 mg tablet 25 mg PO DAILY #30 tab 07/05/18 12/13/18 Rx atorvastatin 40 mg tablet 40 mg PO QHS #90 tab 08/25/18 12/13/18 Rx bisoprolol fumarate 5 mg tablet 2.5 mg PO DAILY #15 tab 09/06/18 12/13/18 History clopidogrel 75 mg tablet 75 mg PO DAILY #90 tab 11/01/18 12/13/18 Rx Meclizine HCl [Verticalm] 25 mg PO TID PRN 12/13/18 12/13/18 History Ranolazine [Ranexa 500mg ER tablet] 500 mg PO BID 12/13/18 12/13/18 History Prescriptions/Medication Reconciliation: Continued aspirin 81 mg tablet,delayed release 81 mg PO DAILY alprazolam 1 mg tablet 1 mg PO TID tab hydrochlorothiazide 25 mg tablet 25 mg PO DAILY #30 tab bisoprolol fumarate 5 mg tablet 2.5 mg PO DAILY #15 tab atorvastatin 40 mg tablet 40 mg PO QHS #90 tab clopidogrel 75 mg tablet 75 mg PO DAILY #90 tab Trazodone HCl 150 mg PO HS Albuterol Sulfate [Albuterol HFA Inhaler] 2 puffs IH QIDP PRN PRN Reason: SHORTNESS OF AIR Ondansetron HCl [Ondansetron 4mg Tablet] 4 mg PO Q8HP PRN PRN Reason: Nausea And Vomiting Tiotropium [place] [Spiriva Respimat] 2 puffs IH DAILY Ranolazine [Ranexa 500mg ER tablet] 500 mg PO BID Omeprazole [Omeprazole 40mg Capsule] 40 mg PO DAILY Meclizine HCl [Verticalm] 25 mg PO TID PRN PRN Reason: Dizziness - Problem Reconciliation Problems Reviewed?: Yes
--- NOTE | 2018-12-13 17:37 | Electrocardiograph Report ---
APPROVED REPORT Exam: Resting ECG HR:73 bpm ECG Measurements Heart Rate 73 AXES [place] 186 P 28 QRSd 90 QRS -1 QT 396 T16 QTc 436 <Conclusion> Normal sinus rhythm Normal ECG Electronically signed by : Red Koehler, 12/13/2018 17:36:54
--- NOTE | 2018-12-16 15:59 | Cardiology Report ---
[facility] RADIOLOGICAL CONSULTATION Patient Name : Janett Christianson X-RAY # : [id number] Physician: LEAH GALDAMEZ AGE: 68Y : 1950 00:00:00 ( F ) Exam : CA ECHO DOPPLER COMPLETE ACC # : [id number] Study Date : 12/13/2018 07:12:26 Patient Class : I FINAL REPORT CLINICAL DATA: FINDINGS: IMPRESSION: Dictated by Lamar Rhodes at 12/15/2018 12:50:57 PM Transcribed by at
== END 2018-12-13 16:20 | disposition home or self-care (01) ==
LOC: ER 22:39 → 2ND 22:39
PROVIDERS: ADMIT Internal Medicine Adolescent Medicine; ATTEND Internal Medicine Adolescent Medicine
CPT/HCPCS: 36415; 70450; 71020; 71046; 80048; 80053; 82803; 83605; 83735; 84484; 85007; 85025; 87040; 87070; 87205; 93005; 93306; 93458; 96374; 99152; 99285; C1725; C1769; G0378; J1644; Q9967

== ENCOUNTER → 2018-12-23 07:39 | Outpatient (CLI) | payer MEDICARE, SELFPAY ==
--- NOTE | 2018-12-23 07:41 | CT_ITS ---
PROCEDURE: CT LUNG SCREENING CLINICAL INDICATION: CURRENT TOBACCO USE Fifty pack-year smoking history, asymptomatic for lung cancer COMPARISON: No exams were available for comparison TECHNIQUE: The exam was performed on a GE Light Speed [address] scanner using 2.90 mGy CTDI. A low dose helical CT CHEST was performed on a multi-detector scanner. All CT scans at the facility use one or more dose reduction, viz: automated exposure control, ma/kV adjustment per patient size (including targeted exams where dose is matched to indication, i.e. head), or iterative reconstruction technique. The LDCT was performed in a facility that meets the criteria for the screening program. Data regarding this exam was submitted to ACR which is an approved registry. The order for this exam indicates that it came as a result of a lung cancer screening counseling shard decision-making visit that included all the elements required of such a visit including smoking cessation. The radiologist interpreting this exam meets the CMS criteria for the LDCT lung cancer screening program. The exam is reported using the Lung-RADS classification scale and reported to the ACR registry. NOTE: This study was performed for the specific purposes of lung cancer screening and is not an alternative to diagnostic chest CT. RADIATION DOSE: CTDI vol(CT dose Index-volume) = 2.90mG DLP (Dose Length Product) = 104.99 mGcm FINDINGS: COPD with scattered areas of scarring. Old granulomatous disease. 3 mm noncalcified nodule right upper lobe laterally. 3 mm noncalcified nodule left upper lobe anteriorly OTHER FINDINGS: Degenerative change thoracic spine. Severe coronary artery calcification. There is some calcification in the mid aspect of the right breast nonspecific. Mammogram suggested for further evaluation. IMPRESSION: Lung rads category 2 benign findings. Recommend [address] Heavy coronary artery calcifications. Nonspecific calcifications in the right breast centrally. Consider mammogram for further evaluation Dictated by: Amarjit Jean MD 12/26/2018 13:37 Signed by: <Electronically signed by Amarjit Jean MD in [place]> 12/26/2018 13:37
== END ==
PROVIDERS: PCP Internal Medicine Adolescent Medicine; Visit Provider Internal Medicine Adolescent Medicine
DX: Z87.891 Personal history of nicotine dependence (principal); Z12.2 Encounter for screening for malignant neoplasm of respiratory organs

== ENCOUNTER → 2019-01-18 14:53 | Outpatient (POV) | payer MEDICARE, SELFPAY | PROVIDERS: Visit Provider Dermatology | DX: Z00.00 Encounter for general adult medical examination without abnormal findings (principal) ==

== ENCOUNTER → 2019-01-20 12:32 | Outpatient (CLI) | payer MEDICARE, SELFPAY ==
--- NOTE | 2019-01-20 12:38 | US_ITS ---
PROCEDURE: US BREAST LT COMPLETE CLINICAL INDICATION: DENSE BREAST COMPARISON: BR US BREAST-RT COMPLETE W/AXILLA from 11/02/2014 BL US BREAST-LT COMPLETE W/AXILLA from 11/02/2014 DMDB DIG MAMM-DX BRANDON from 05/10/2015 US BREAST RT COMPLETE from 01/20/2019 FINDINGS: Left breast: At 12 o'clock there is a 4 x 3 mm cyst. There is mild ductal dilatation at 2 o'clock. At 3 o'clock there is a complex 10 by 6 mm cyst. The margins are somewhat irregular. Behind the nipple there is a cluster of small cysts versus ductal dilatation similar to the previous exam. No suspicious solid lesions are evident. Right breast: 4 mm cyst at 3 o'clock common ductal dilatation at 9 o'clock. At 9 o'clock there is a complex cystic area measuring 18 x 14 mm probably due to complex fibrocystic changes. There echo dense fibroglandular tissue throughout. Ductal ectasia is present posterior to the nipple. IMPRESSION: Complex bilateral cystic abnormalities. Correlation with mammogram suggested. Most recent mammogram available is 05/10/2015. BI-RADS category 0, incomplete. Recommend correlation with mammography. Dictated by: Amarjit Jean MD 01/23/2019 11:39 Electronically signed by Amarjit Jean MD in [place] 01/23/2019 11:39
== END ==
PROVIDERS: PCP Internal Medicine Adolescent Medicine; Visit Provider Internal Medicine Adolescent Medicine
DX: R92.2 Inconclusive mammogram (principal)
CPT/HCPCS: 76641

== ENCOUNTER → 2019-02-02 13:52 | Outpatient (CLI) | payer MEDICARE, SELFPAY ==
--- NOTE | 2019-02-02 14:01 | MM_ITS ---
PROCEDURE: MM DIG MAMM BI DX W/CAD CLINICAL INDICATION: DENSE BREASTS Follow-up abnormal breast ultrasound COMPARISON: DIGMAMMS MAMMOGRAM SCREEN-FUR IRONER N/C from 11/26/2009 DMDB DIG MAMM-DX BRANDON from 11/02/2014 DMDB DIG MAMM-DX BRANDON from 05/10/2015 DMSB DIG MAMM-SCREEN BRANDON W/CAD from 07/16/2016 US BREAST RT COMPLETE from 01/20/2019 US BREAST LT COMPLETE from 01/20/2019 TECHNIQUE: Standard CC and MLO images were obtained. R2 CAD reviewed. FINDINGS: There is dense fibroglandular tissue which decreases sensitivity of mammography. There are scattered asymmetric densities in both breasts. These appear to dissipate on spot compression views some which may correspond to the complex cyst noted on the ultrasound.. There are scattered benign-appearing calcifications which appear stable. No malignant appearing mass or malignant-appearing microcalcification is evident. There are regional small punctate calcifications in the upper aspect of the left breast probably secretory and probably not significantly changed IMPRESSION: Probably benign findings. Suggest bilateral 6 month sonographic and mammographic follow-up. BI-RAD Category: 3 Probably Benign Finding Short Term Follow-up FOLLOW-UP: 6M 6Month Follow-up (A letter has been sent to the patient regarding results of the study.) Dictated by: Amarjit Jean MD 02/11/2019 08:07 Electronically signed by Amarjit Jean MD in [place] 02/11/2019 08:07
== END ==
PROVIDERS: PCP Internal Medicine Adolescent Medicine; Visit Provider Internal Medicine Adolescent Medicine
DX: R92.2 Inconclusive mammogram (principal)
CPT/HCPCS: 77066

== ENCOUNTER 2019-09-03 22:10 | Inpatient (IN) | payer MEDICARE, SELFPAY ==
[2019-09-03 22:17] VITALS: BP 145/67; PULSE 92; RESP 20; TEMP 36.9; O2SAT 76; BMI 26.6
--- NOTE | 2019-09-03 22:20 | HMH.EDGENADL ---
ED Disposition Clinical Impression: Unstable angina, Elevated troponin, COPD exacerbation Respiratory failure with hypoxia Qualifiers: Chronicity: acute on chronic Qualified Code(s): J96.21 - Acute and chronic respiratory failure with hypoxia Disposition: Admitted as Observation Condition on Discharge: Fair - Critical Care Critical Care Time: Yes Attestation: On 09/03/19, the high probability of a clinically significant, sudden or life threatening deterioration of the following system(s) required my full and direct attention, intervention and personal management. The time I documented below is in addition to time spent performing reported procedures but includes the following listed in this critical care notation. Vital system(s) involved:: Circulatory Failure My critical care processes included: Assessment & monitoring of V/S, Initial and Re-exams, Data Review/Interpretation, Coordinating Care, Medication Orders and management, Documentation Medical Decision Making - Medical Records Medical records reviewed: Yes: I reviewed the patient's medical records. - Jose Elias Inquiry Pt receiving controlled substance: No Vital Signs: 09/03/19 22:17 09/03/19 23:05 09/03/19 23:16 Temperature 98.4 F Temperature Source Oral Pulse Rate Pulse Rate [Right Brachial] 92 H 61 73 Respiratory Rate 20 18 18 Blood Pressure Blood Pressure [Right Arm] 145/67 H 118/65 116/56 L Blood Pressure Mean [Right Arm] 93 82 76 Blood Pressure Source Blood Pressure Source [Right Arm] Automatic Cuff Automatic Cuff Blood Pressure Position Blood Pressure Position [Right Arm] Sitting Sitting 02 Sat by Pulse Oximetry 76 L 97 92 L Oxygen Delivery Method Room Air Nasal Cannula Nasal Cannula Oxygen Flow Rate (LPM) 2 2 09/03/19 23:17 09/04/19 00:13 09/04/19 00:32 Temperature 98.4 F Temperature Source Oral Pulse Rate 80 70 Pulse Rate [Right Brachial] 70 Respiratory Rate 18 18 Blood Pressure 127/73 Blood Pressure [Right Arm] 127/73 Blood Pressure Mean [Right Arm] 91 Blood Pressure Source Automatic Cuff Blood Pressure Source [Right Arm] Automatic Cuff Blood Pressure Position Sitting Blood Pressure Position [Right Arm] Sitting 02 Sat by Pulse Oximetry 97 Oxygen Delivery Method Nasal Cannula Nasal Cannula Oxygen Flow Rate (LPM) 2 2 09/04/19 00:33 Temperature 97.8 F Temperature Source Oral Pulse Rate Pulse Rate [Right Brachial] 72 Respiratory Rate 20 Blood Pressure Blood Pressure [Right Arm] 128/52 L Blood Pressure Mean [Right Arm] 77 Blood Pressure Source Blood Pressure Source [Right Arm] Automatic Cuff Blood Pressure Position Blood Pressure Position [Right Arm] Supine 02 Sat by Pulse Oximetry 92 L Oxygen Delivery Method Nasal Cannula Oxygen Flow Rate (LPM) 2 - Lab Data Lab results reviewed: Yes: I reviewed the patient's lab results. Lab Results 09/03/19 22:21: WBC 7.0, RBC 4.46, Hgb 14.3, Hct 45.9, MCV 102.8 H, MCH 32.0 H, MCHC 31.1 L, RDW 15.4, Plt Count 283, MPV 7.3 L, Neut % (Auto) 66.8, Lymph % (Auto) 23.5, [place] % (Auto) 6.0, Eos % (Auto) 2.6, Baso % (Auto) 1.1, Neut # (Auto) 4.7, Lymph # (Auto) 1.6, [place] # (Auto) 0.4, Eos # (Auto) 0.2, Baso # (Auto) 0.1 09/03/19 22:21: Sodium 139, Potassium 4.5, Chloride 99, Carbon Dioxide 36 H, Anion Gap 8.5, BUN 18 H, Creatinine 1.00, Estimated Creat Clear 67, Estimated GFR 55 L, Est GFR ( Amer) 66, Glucose 106 H, Calcium 9.4, Troponin I 0.07 H Result diagrams: 09/03/19 22:21 09/03/19 22:21 Orders (Tests/Meds): ED MEDICATIONS Generic Name Dose Route Start Last Admin Trade Name Freq PRN Reason Stop Dose Admin Acetaminophen 650 mg 09/04/19 00:24 Acetaminophen 325mg Tab PO 10/04/19 00:23 Q4HP PRN As Needed for Fever or Pain Albuterol/Ipratropium 3 ml 09/04/19 06:00 09/04/19 06:26 Duoneb 3ml Neb IH 10/04/19 05:59 Not Given QIDRT JUAN MIGUEL Alprazolam 1 mg 09/04/19 09:00 Xanax 1mg Tablet PO 10/04/19 08:59
--- NOTE | 2019-09-03 22:26 | ECG_ITS ---
APPROVED REPORT Exam: Resting ECG HR:88 bpm ECG Measurements Heart Rate [address] 160 P 55 QRSd 116 QRS 74 QT 370 T 29 QTc 447 <Conclusion> Normal sinus rhythm Incomplete RBBB Otherwise a Normal ECG Electronically signed by : Serg Cristobal, 09/04/2019 13:17:23
--- NOTE | 2019-09-03 22:26 | XR_ITS ---
PROCEDURE: XR CHEST PORTABLE CLINICAL HISTORY: CHEST PAIN smoking history, history of cardiac stents COMPARISON: CXR2V XR chest 2V from 05/21/2018 CXR2V XR chest 2V from 06/04/2018 XR CHEST 2V from 12/13/2018 FINDINGS: The cardiomediastinal silhouette and pulmonary vascularity are within normal limits. The lungs are clear without infiltrates, suspicious nodules, or pleural effusions. There is minimal atelectasis versus postinflammatory scarring left perihilar region. No acute bony abnormalities. IMPRESSION: No acute findings. Dictated by: Dr. Bin Cuevas MD 09/04/2019 08:[address] Bin Cuevas MD in [place] 09/04/2019 08:31
[2019-09-03 22:40] LABS: Anion Gap 8.5 mEq/L (5-15); Blood Urea Nitrogen 18 mg/dl (7-17); Calcium 9.4 mg/dl (8.4-10.2); Carbon Dioxide 36 mmol/L (22.0-30.0); Chloride 99 mmol/L (98-107); Creatinine Clearance Estimated 67 mL/min (50-200); Estimated Glomerular Filt Rate 55 ml/min (>60); GFR (African American) 66 ML/MIN (>60); Glucose 106 mg/dl (74-100); Potassium 4.5 mmoL/L (3.5-5.1); Sodium 139 mmol/L (136-145)
[2019-09-03 22:41] LABS: Basophils # 0.1 K/mm3 (0-0.2); Basophils % 1.1 % (0.1-2.0); Eosinophils # 0.2 K/mm3 (0.0-0.4); Eosinophils % 2.6 % (0.1-12.0); Hematocrit 45.9 % (37.0-47.0); Hemoglobin 14.3 g/dL (12.2-16.2); Lymphocytes # 1.6 K/mm3 (0.7-4.5); Lymphocytes % 23.5 % (10-50); Mean Corpuscular HGB Conc 31.1 g/dL (31.8-35.4); Mean Corpuscular Volume 102.8 fl (81-99); Mean Platelet Volume 7.3 fl (7.4-10.4); Monocytes # 0.4 K/mm3 (0.1-1.0); Neutrophils # 4.7 K/mm3 (1.8-7.8); Neutrophils % 66.8 % (37.0-80.0); Platelet Count 283 K/mm3 (142-424); Red Blood Count 4.46 M/mm3 (4.20-5.40); Red Cell Distribution Width 15.4 % (11.5-17.5)
[2019-09-03 22:52] LABS: Troponin I 0.07 ng/ml (0.00-0.034)
[2019-09-03 23:05] VITALS: BP 118/65; PULSE 61; RESP 18; O2SAT 97
[2019-09-03 23:16] VITALS: BP 116/56; PULSE 73; RESP 18; O2SAT 92
[2019-09-03 23:17] VITALS: PULSE 80; PULSE 87
--- NOTE | 2019-09-03 23:18 | PC.NURSE ---
with patients permission, ed staff spoke with daughter and via phone and updated them with the POC
[2019-09-04] VITALS (15 sets, daily range): BP systolic 111–132; BP diastolic 52–74; PULSE 70–85; RESP 16–20; TEMP 36.5–37.2; O2SAT 90–97; BMI 26.9
--- NOTE | 2019-09-04 00:33 | PC.NURSE ---
PT ARRIVED TO THE FLOOR VIA W/C FROM ED @ 0038
[2019-09-04 01:48] LABS: Troponin I 0.07 ng/ml (0.00-0.034)
[2019-09-04 05:54] LABS: Troponin I 0.05 ng/ml (0.00-0.034)
--- NOTE | 2019-09-04 06:54 | PC.NURSE ---
Pt new admit this shift for angina and COPD exc. Expiratory wheezes noted throughout upon auscultation. She is tolerating 2LNC w/ sats in low 90's. No c/o any pain, SOA, N/V, or dizziness reported. Pt was bathed and prepared for possible cath this am. Pt ambulates independetly to BR and voiding w/i reported difficulties. Nitro patch to left chest remains at this time. No c/o headache. VSS.
--- NOTE | 2019-09-04 08:27 | HMH.HP ---
*Admission Date: 09/03/19 *Chief complaint: Chest pain/elevated troponin *History of present illness: 69-year-old white female with multiple risk factors for coronary atherosclerosis, established coronary atherosclerosis and history of stent placement in the past, most recently cath in November 2018 with patent stents and no further interventions done, who came to the emergency department with 2 days of shortness of air that has been accelerating along with chest pressure and pain on the morning of admission. In the emergency department troponins were elevated to .07 which is above her baseline back in November, and this was found to be stable on repeat, admitted to hospital for further evaluation, and possible repeat catheterization. This morning she feels comfortable, has no further chest pain. [facility] History I have reviewed the patient's past medical history: Yes Medical History: Reports:: Anxiety, Chronic Obstructive Pulmonary Disease (COPD), Coronary Artery Disease, Cerebrovascular Accident, Depression, Hyperlipidemia, Hypertension, Lung Disease, Myocardial Infarction Denies:: Cancer, Diabetes Mellitus Type 1, Diabetes Mellitus Type 2, Internal Pacemaker, MRSA, Seizures *Have you ever received a pneumonia vaccine?: Yes *Have you received a flu vaccine this season?: Yes Other Medical History: Reports: Arthritis, Other Laterality Cases: Right: Arthroscopy Knee Other Surgeries: Yes: Cardiac Catheterization, Colonoscopy, Coronary Stent, , EGD (11/17/17), Hysterectomy-Total, Tubal Ligation, Other. No: Pacemaker Amputation: No Fractures: No - *Social History Educational Level: Completed High School Smoking Status: Current every day smoker Tobacco Type: cigarettes # Packs/Day (cigarettes): 1 #Yrs smoked (if former smoker): 50 Alcohol Intake: never Alcohol Intake Frequency:: other Substance Use Type: denies use *Occupational Status:: retired Housing: house Household Members: spouse *Travel in the last 8 weeks: None - Psychiatric History Pschychiatric History:: Reports:: Anxiety, Depression Family Hx:: Asthma, Cancer, Diabetes, Heart Attack, Hypertension, Stroke Review of Systems - Review of Systems Review of systems:: pertinent systems reviewed and negative unless documented below Meds Home Medications Medication Instructions Recorded Confirmed Type alprazolam 1 mg tablet 1 mg PO TID tab 05/18/17 09/04/19 History aspirin 81 mg tablet,delayed 81 mg PO DAILY 05/18/17 09/04/19 History release Albuterol Sulfate [Ventolin HFA 2 puffs IH QIDP PRN 05/22/18 09/04/19 History Inhaler] Tiotropium [place] [Spiriva 2 puffs IH DAILY 05/22/18 09/04/19 History Respimat] clopidogrel 75 mg tablet 75 mg PO DAILY #90 tab 11/01/18 09/04/19 Rx Ranolazine [Ranexa 500mg ER tablet] 500 mg PO BID 12/13/18 09/04/19 History omeprazole 40 mg capsule,delayed 40 mg PO DAILY #30 cap 02/08/19 09/04/19 Rx release bisoprolol fumarate 5 mg tablet 2.5 mg PO DAILY #15 tab 07/26/19 09/04/19 Rx meclizine 25 mg tablet 25 mg PO TID PRN #90 tab 07/26/19 09/04/19 Rx Atorvastatin Calcium [Atorvastatin 40 mg PO QHS 09/03/19 09/04/19 History 40mg Tab] Escitalopram Oxalate 10 mg PO HS 09/03/19 09/04/19 History Mirtazapine 15 mg PO HS 09/03/19 09/04/19 History Allergies Allergy/AdvReac Type Severity Reaction Status Date / Time promethazine Allergy Unknown Verified 09/04/19 00:59 Iodinated Contrast Media Allergy Verified 09/04/19 00:59 Exam Vital signs and Labs for Last 24 Hours: Temp Pulse Resp BP Pulse Ox 97.9 F 76 20 132/74 92 L 09/04/19 04:00 09/04/19 04:00 09/04/19 04:00 09/04/19 04:00 09/04/19 04:00 Laboratory Results - last 24 hr 09/03/19 22:21: WBC 7.0, RBC 4.46, Hgb 14.3, Hct 45.9, MCV 102.8 H, MCH 32.0 H, MCHC 31.1 L, RDW 15.4, Plt Count 283, MPV 7.3 L, Neut % (Auto) 66.8, Lymph % (Auto) 23.5, [place] % (Auto) 6.0, Eos % (Auto) 2.6, Baso % (Auto) 1.1, Neut # (Auto) 4.7, Lymph # (Auto) 1.6, [place] # (Auto) 0.4
--- NOTE | 2019-09-04 11:25 | HMH.PHAINT ---
MED REC-COMPARED MED REC WITH MED FILL HX.
--- NOTE | 2019-09-04 11:26 | P.CONPHA_ITS ---
[facility] Pharmacy VTE Monitoring - Patient Demographics Admission date: 09/04/19 Report Date: 09/04/19 Time: 11:26 Allergies/Adverse Reactions: Patient Allergies promethazine Allergy (Unknown, Verified 09/04/19 00:59) Iodinated Contrast Media Allergy (Verified 09/04/19 00:59) Height: 1.75 m Weight: 82.582 kg Patient Problems: Current Active Problems COPD exacerbation (Acute) Elevated troponin (Acute) Unstable angina (Acute) Respiratory failure with hypoxia (Acute) - VTE Risk Labs: VTE Related Lab Results Hgb 14.3 g/dL (12.2-16.2) 09/03/19 22:21 Hct 45.9 % (37.0-47.0) 09/03/19 22:21 Plt Count 283 K/mm3 (142-424) 09/03/19 22:21 BUN 18 mg/dl (7-17) H 09/03/19 22:21 Creatinine 1.00 mg/dl (0.52-1.04) 09/03/19 22:21 Estimated Creat Clear 67 mL/min (50-200) 09/03/19 22:21 VTE Score: 6 VTE Risk Level: Moderate Risk - Prophylaxis Types of VTE Prophylaxis: Pharmacological Pharmacologic Type: Enoxaparin (LOVENOX ORDERED FOR PATIENT)
--- NOTE | 2019-09-04 18:25 | PC.NURSE ---
pt has had a good day. no c/o chest pain, or SOA. cont on o2. ambulates to bathroom independently. pt reports she has a recent history of lip numbness. reports it happen all the time at home and that it just comes and goes pt requested to be disconnected from her cont. fluids. pt does had an intermittent cough. no sputum production. vss. will cont. to monitor.
--- NOTE | 2019-09-04 23:09 | PC.NURSE ---
TEDS OFF AT THIS TIME
[2019-09-05] VITALS (15 sets, daily range): BP systolic 94–147; BP diastolic 55–71; PULSE 68–94; RESP 14–20; TEMP 36.4–36.8; O2SAT 90–96; BMI 28.0
--- NOTE | 2019-09-05 | IR_ITS ---
APPROVED REPORT Patient Location: Inpatient PROCEDURES Left heart catheterization Left ventriculogram Selective coronary angiogram INDICATION Acute coronary syndrome, Coronary artery disease, Elevated troponin Informed consent was obtained prior to the procedure. COMPLICATIONS NONE Estimated Blood Loss: LESS THAN 10 ML TECHNIQUE One percent lidocaine used to anesthetize the right anterior aspect of the wrist. The right radial artery was accessed via the Seldinger technique. A 6 Nepali sheath was placed in the right radial artery. 2.5 mg of verapamil, 800 mcg of nitroglycerin, 1mg Lidocaine and 5000 U Heparin were given through the arterial sheath. The trap catheter was also used to perform left heart catheterization, left ventriculogram and selective coronary angiogram. At the end of the procedure the sheath was removed good hemostasis was achieved using Traclet band, patient was transferred to the postop holding area in stable condition. ANGIOGRAPHIC RESULTS The left main artery Has a stent in the ostial segment which extends into the proximal LAD. The stent is widely patent free of in-stent restenosis with excellent proximal distal transitioning The left anterior descending artery The stent originating from the left main artery is widely patent with excellent transitioning. The remaining vessel was tortuous with no significant stenosis greater than 10% The circumflex artery Is a nondominant yet still large vessel giving rise to a small high ramus intermedius which is normal. The first obtuse marginal artery is corkscrew tortuous but normal. A large Kugel collateral branches off the circumflex artery and supplies the distal dominant right coronary The right coronary artery Is a dominant vessel and has proximal haziness severe stenoses and then occluded proximally. The entire vessel fills via a large Kugel collateral with [id number] collaterals The [place] ventriculogram reveals Normal 65% The left ventricular end-diastolic pressure 10 mmHg IMPRESSION Coronary artery disease as described above No change in coronary disease since last cardiac catheterization Patient is likely experiencing pulmonary dyspnea secondary to advanced lung disease PLAN 1. Medical management with specific attention on treatment of lung disease Electronically signed by : Pratik Fuentes, 09/05/2019 14:24:45
--- NOTE | 2019-09-05 03:33 | PC.NURSE ---
A&OX4. PT TOLERATING RA WELL THIS SHIFT. PT UP INDEPENDENTLY IN ROOM. PT HAS HAD NO C/O CHEST PAIN OR SOA. PT ONLY STATES THAT SHE HAS A SLIGHT NUMB FEELING IN HER R CHEEK. PT HAS HAD A PRODUCTIVE INTERMITTENT COUGH, SPUTUM COLLECTED THIS SHIFT. PT RESTING WELL T/O MAJORITY OF SHIFT. NO OTHER COMPLAINTS THUS FAR, VSS WILL CONTINUE TO MONITOR.
[2019-09-05 07:12] LABS: Basophils % 0.1 % (0.1-2.0); Eosinophils % 0.1 % (0.1-12.0); Hematocrit 42.2 % (37.0-47.0); Hemoglobin 12.9 g/dL (12.2-16.2); Lymphocytes # 0.6 K/mm3 (0.7-4.5); Lymphocytes % 6.9 % (10-50); Mean Corpuscular HGB Conc 30.6 g/dL (31.8-35.4); Mean Corpuscular Hemoglobin 31.2 pg (27.0-31.2); Mean Corpuscular Volume 101.8 fl (81-99); Mean Platelet Volume 7.1 fl (7.4-10.4); Monocytes # 0.3 K/mm3 (0.1-1.0); Monocytes % 3.3 % (1.7-9.3); Neutrophils # 8.2 K/mm3 (1.8-7.8); Neutrophils % 89.5 % (37.0-80.0); Platelet Count 274 K/mm3 (142-424); Red Blood Count 4.14 M/mm3 (4.20-5.40); Red Cell Distribution Width 15.1 % (11.5-17.5); White Blood Count 9.1 K/mm3 (4.8-10.8)
[2019-09-05 07:20] LABS: MANUAL DIFFERENTIAL MANUAL DIFFERENTIAL (MANUAL DIFF)
[2019-09-05 07:21] LABS: Chloride 101 mmol/L (98-107); Potassium 4.5 mmoL/L (3.5-5.1); Sodium 136 mmol/L (136-145)
[2019-09-05 07:23] LABS: Blood Urea Nitrogen 22 mg/dl (7-17); Creatinine Clearance Estimated 71 mL/min (50-200); Estimated Glomerular Filt Rate 83 ml/min (>60); GFR (African American) 100 ML/MIN (>60)
[2019-09-05 07:24] LABS: Anion Gap 5.5 mEq/L (5-15); Calcium 9.2 mg/dl (8.4-10.2); Carbon Dioxide 34 mmol/L (22.0-30.0); Creatine Kinase 59 U/L (30-135); Glucose 142 mg/dl (74-100)
[2019-09-05 07:32] LABS: CKMB Relative Index 2.4 U/L (0-4.0); Creatine Kinase MB 1.4 ng/ml (0.0-2.03)
[2019-09-05 07:35] LABS: Troponin I 0.02 ng/ml (0.00-0.034)
--- NOTE | 2019-09-05 08:11 | HMH.CNCARD ---
History of Present Illness Consult date: 09/05/19 Requesting physician: Red Koehler Consult reason: chest pain Chief complaint: chest pain Additional Medical History:: 1. CAD A. Cardiac cath, 06/2016, 2 TERESA to prox/mid LAD, chronic occluded proximal dominant RCA with large extensive collateralization to the distal RCA via a large Kugel collateral off the circumflex artery. B. Cardiac catheterization, 04/2018, drug-eluting stent placed to the ostial proximal left main artery. Left anterior descending artery stent widely patent. Left ventricular ejection fraction 60%. LVEDP 25 mmHg. C. Recurrent angina similar to 04/2018 chest pain, 11/2018 with resultant C showing: ANGIOGRAPHIC RESULTS The left main artery Has a stent in the ostial proximal segment which is widely patent. Distally there is a 20 to 30% transitioning into the circumflex artery The left anterior descending artery Has a stent which originates off the left main artery which extends into the proximal segment through the mid segment. The stent is widely patent free of in-stent restenosis with excellent distal transitioning. The circumflex artery Is nondominant with mild luminal irregularities The right coronary artery Is a dominant vessel and occluded mid segment. The distal segment fills via left collaterals The [place] ventriculogram reveals Normal 65% The left ventricular end-diastolic pressure 10 mmHg IMPRESSION Widely patent left main stent Widely patent stent within the proximal to mid LAD Normal ejection fraction Normal left ventricular end-diastolic pressure Chronically occluded right coronary artery which fills via [id number] collaterals PLAN 1. Medical management 2. Evaluation of noncardiac symptomatology Electronically signed by : Pratik Fuentes, 12/13/2018 11:19:02 2. Tobacco use, continued A. COPD 3. Hypertension A. Echo, 11/2018, LVEF 55% with mild RV enlargement but normal function. No significant valvular heart disease. 4. Hyperlipidemia, on statin therapy 5. Carotid artery disease A. History of CVA prior to right CEA many years ago History of present illness: 69-year-old white female with multiple risk factors for coronary atherosclerosis, established coronary atherosclerosis and history of stent placement in the past, most recently cath in November 2018 with patent stents and no further interventions done, who came to the emergency department with 2 days of shortness of air that has been accelerating along with chest pressure and pain on the morning of admission. In the emergency department troponins were elevated to .07 which is above her baseline back in November, and this was found to be stable on repeat, admitted to hospital for further evaluation, and possible repeat catheterization. This morning she feels comfortable, has no further chest pain. The above per Dr. Koehler Pt relates several days of accelerating, intermittent anterior chest and left shoulder discomfort that would occur with activity and rest that onset on day of admission and would not resolve. Pt did receive NTG SL and then paste with resolution of symptoms. No further chest pain since admission. Troponins have trended down to normal since admission. EKG is sinus without acute ST segment changes. [facility] History Medical History: Reports:: Anxiety, Chronic Obstructive Pulmonary Disease (COPD), Coronary Artery Disease, Cerebrovascular Accident, Depression, Hyperlipidemia, Hypertension, Lung Disease, Myocardial Infarction Denies:: Cancer, Diabetes Mellitus Type 1, Diabetes Mellitus Type 2, Internal Pacemaker, MRSA, Seizures *Have you ever received a pneumonia vaccine?: Yes *Have you received a flu vaccine this season?: Yes Other Medical History: Reports: Arthritis, Other Laterality Cases: Right: Arthroscopy Knee Other Surgeries: Yes: Cardiac Catheterization, Colonoscopy, Coronary Stent, , EGD (11/17/17), Hysterectomy-Total, Tubal Ligation, Othe
--- NOTE | 2019-09-05 08:21 | HMH.ACPN2 ---
Internal Medicine - PN: Subj *Date: 09/05/19 *Time: 08:21 Interval history: Patient had a comfortable night, no pain, did have a little bit of cough through the night. Exam Vital signs and Labs for Last 24 Hours: Temp Pulse Resp BP Pulse Ox 98.1 F 76 16 114/66 92 L 09/05/19 04:00 09/05/19 04:00 09/05/19 04:00 09/05/19 04:00 09/05/19 04:00 Laboratory Results - last 24 hr 09/05/19 06:15: WBC 9.1 D, RBC 4.14 L, Hgb 12.9, Hct 42.2, MCV 101.8 H, MCH 31.2, MCHC 30.6 L, RDW 15.1, Plt Count 274, MPV 7.1 L, Neut % (Auto) 89.5 H, Lymph % (Auto) 6.9 L, [place] % (Auto) 3.3, Eos % (Auto) 0.1, Baso % (Auto) 0.1, Neut # (Auto) 8.2 H, Lymph # (Auto) 0.6 L, [place] # (Auto) 0.3, Eos # (Auto) 0.0, Baso # (Auto) 0.0 09/05/19 06:15: Sodium 136, Potassium 4.5, Chloride 101, Carbon Dioxide 34 H, Anion Gap 5.5, BUN 22 H, Creatinine 0.70 D, Estimated Creat Clear 71, Estimated GFR 83, Est GFR ( Amer) 100 D, Glucose 142 H, Calcium 9.2, Total Creatine Kinase 59, CK-MB (CK-2) 1.4, CK-MB (CK-2) Rel Index 2.4, Troponin I 0.02 I & O for Last 24 hours: Intake & Output 09/02/19 09/03/19 09/04/19 09/05/19 11:59 11:59 11:59 11:59 Intake Total 385 / 385 441 / 441 Output Total 500 / 500 Balance 385 / 385 -59 / -59 Weight 182 lb 0.994 oz 189 lb Microbiology Reports for the Last 24 Hours: Microbiology 09/04/19 20:30 Sputum - Expectorated Sputum Gram Stain - Final - *Routine HEENT Exam Head: Present: normocephalic Eye: Present: EOMI, PERRL ENT: Present: mucous membranes moist - *Routine Neck Exam Present: supple. Absent: lymphadenopathy - *Routine Respiratory Exam Present: wheezes Comments: Very minimal end expiratory wheezes, some scattered rhonchi. - *Routine Cardiovascular Exam Present: RRR - *Routine Abdominal Exam Present: soft, normoactive bowel sounds. Absent: tenderness - *Routine Extremities Exam Absent: cyanosis, clubbing, edema - *Routine Skin Exam Present: warm. Absent: rash - *Routine Neurological Exam Present: alert, oriented X3 Assessment and Plan (1) Elevated troponin Current visit: Yes Status: Acute Category: Medical Code(s): R74.8 - Abnormal levels of other serum enzymes (2) Chest pain due to coronary artery disease Current visit: No Status: Acute Category: Medical Code(s): I25.119 - Atherosclerotic heart disease of ute coronary artery with unspecified angina pectoris (3) NSTEMI (non-ST elevated myocardial infarction) Current visit: No Status: Acute Category: Medical Code(s): I21.4 - Non-ST elevation (NSTEMI) myocardial infarction - Assessment and plan all Dx Assessment and Plan for all problems:: Patient comfortable, labs reviewed. Cardiology evaluation today for probable left heart cath. In regards to her cough and wheezing we will give her nebulizer treatments today. She is not been taking her COPD inhalers while in the hospital.
[2019-09-05 08:29] LABS: Lymphocytes % 9 % (10-50); Monocytes % 3 % (2-9); Neutrophils % 88 % (42-76); Nucleated Red Blood Cells 1; Platelet Estimate Normal; Total Cells Counted 100
--- NOTE | 2019-09-05 08:29 | CA_ITS ---
APPROVED REPORT EXAM: Comprehensive 2D, Doppler, and color-flow Echocardiogram Steel Cutter: Lamar Rhodes CRT Ht: 5 ft 8 in Wt: 182lbs BSA: 1.96 BP: 124/80 mmHg Indications: CP, COPD, SMOKER, HTN, HLD, CAD, STENT, PA, CVA 2D Dimensions LVOT 2.05 cm (M/F) 1.5-2.5 M-Mode Dimensions RVDd 3.82 cm (0.9-2.6) LVDd 4.75 cm (3.5-5.7) LVDs 2.78 cm (3.5-5.7) IVSd 1.17 cm (0.6-1.1) PWd 0.89 cm (0.6-1.1) EF (Teich) 72.40% FS 41.50% EDV (Teich) 104.90 mL ESV (Teich) 29.00 mL LV Diastology E/A Ratio 0.90 Mitral Valve MV A Velocity 102.00 (40-130 cm/s) Left Ventricle Left atrium is mildly enlarged, left ventricle is normal size, mild concentric left ventricular hypertrophy, visually estimated ejection fraction of 55% with no regional wall motion abnormality, endocardial surfaces are poorly visualized. Grade 1 diastolic dysfunction seen with tissue Doppler evidence of raise left atrial pressure. Right Ventricle Right atrium and right ventricle mildly enlarged with normal contractility. Aortic Valve Aortic valve is thickened and calcified leaflet continue to display good mobility, there is no aortic stenosis or aortic insufficiency. Mitral Valve Mitral valve is minimally thickened, there is mild mitral regurgitation. Tricuspid Valve Tricuspid valve is grossly normal, there is mild tricuspid regurgitation. Calculated right ventricular systolic pressure is 38 mmHg. Pulmonic Valve Pulmonic valve is poorly visualized. Great Vessels Aortic root is normal size. Pericardium No significant pericardial effusion noted. Conclusion 1. Mild biatrial alignment, normal left ventricular size, mild concentric left ventricular hypertrophy, visually estimated ejection fraction 55% with no regional wall motion abnormality, grade 1 diastolic dysfunction seen with tissue Doppler evidence of raise left atrial pressure. 2. Mildly enlarged right ventricle with normal contractility. 3. Mild mitral and tricuspid regurgitation, calculated right ventricular systolic pressure 38 mmHg. 4. No significant pericardial effusion noted. Electronically signed by : Sadiq Wiley, 09/05/2019 19:35:56
[2019-09-05 08:30] LABS: Macrocytosis 1+
[2019-09-05 08:52] LABS: Chol/HDL Ratio 2.5 (1-3.5); Cholesterol 170 mg/dl (140-200); HDL Cholesterol 69 mg/dl (40-60); Triglycerides 91 mg/dl (30-150); VLDL Cholesterol 18 mg/dL (0-40)
[2019-09-05 09:03] LABS: Direct LDL Cholesterol 109.45 mg/dL (100-129)
--- NOTE | 2019-09-05 15:25 | HMH.DCSUM ---
General - General Admission date:: 09/03/19 Discharge date: 09/05/19 HPI HPI: 69-year-old white female with multiple risk factors for coronary atherosclerosis, established coronary atherosclerosis and history of stent placement in the past, most recently cath in November 2018 with patent stents and no further interventions done, who came to the emergency department with 2 days of shortness of air that has been accelerating along with chest pressure and pain on the morning of admission. In the emergency department troponins were elevated to .07 which is above her baseline back in November, and this was found to be stable on repeat, admitted to hospital for further evaluation, and possible repeat catheterization. This morning she feels comfortable, has no further chest pain. Hospital Course Hospital Course: Patient was admitted, elevated troponins noted, no further elevation was noted, patient had no further ECG changes Patient was monitored overnight and taken to heart catheterization lab this morning. Results are as noted below ANGIOGRAPHIC RESULTS The left main artery Has a stent in the ostial segment which extends into the proximal LAD. The stent is widely patent free of in-stent restenosis with excellent proximal distal transitioning The left anterior descending artery The stent originating from the left main artery is widely patent with excellent transitioning. The remaining vessel was tortuous with no significant stenosis greater than 10% The circumflex artery Is a nondominant yet still large vessel giving rise to a small high ramus intermedius which is normal. The first obtuse marginal artery is corkscrew tortuous but normal. A large Kugel collateral branches off the circumflex artery and supplies the distal dominant right coronary The right coronary artery Is a dominant vessel and has proximal haziness severe stenoses and then occluded proximally. The entire vessel fills via a large Kugel collateral with [id number] collaterals The [place] ventriculogram reveals Normal 65% The left ventricular end-diastolic pressure 10 mmHg IMPRESSION Coronary artery disease as described above No change in coronary disease since last cardiac catheterization Patient is likely experiencing pulmonary dyspnea secondary to advanced lung disease PLAN 1. Medical management with specific attention on treatment of lung disease Given patient's good angiographic results patient was recommended to have treatment ongoing for COPD issues. No changes in cardiac medications were made-cardiology has recommended isosorbide - but the patient declined to take this because of previous headache Objective Vital signs: Temp Pulse Resp BP Pulse Ox 98.0 F 75 17 113/65 92 L 09/05/19 12:00 09/05/19 12:00 09/05/19 12:00 09/05/19 12:00 09/05/19 12:00 no acute distress - *Routine HEENT Exam Head: Present: normocephalic Eye: Present: EOMI, PERRL ENT: Present: mucous membranes moist - *Routine Neck Exam Present: supple - *Routine Respiratory Exam Present: CTA bilaterally - *Routine Cardiovascular Exam Present: RRR - *Routine Abdominal Exam Present: soft, normoactive bowel sounds. Absent: tenderness - *Routine Extremities Exam Absent: cyanosis, clubbing, edema - *Routine Skin Exam Present: warm. Absent: rash - Detailed Eye Exam Eyelids: Bilateral normal inspection Results Labs on day of discharge: Labs from last 24 hours 09/05/19 09/05/19 09/05/19 06:15 06:15 06:15 WBC 9.1 D RBC 4.14 L Hgb 12.9 Hct 42.2 MCV 101.8 H MCH 31.2 MCHC 30.6 L RDW 15.1 Plt Count 274 MPV 7.1 L Neut % (Auto) 89.5 H Lymph % (Auto) 6.9 L [place] % (Auto) 3.3 Eos % (Auto) 0.1 Baso % (Auto) 0.1 Neut # (Auto) 8.2 H Lymph # (Auto) 0.6 L [place] # (Auto) 0.3 Eos # (Auto) 0.0 Baso # (Auto) 0.0 Total Counted 100 Neutrophils % (Manual) 88
--- NOTE | 2019-09-05 18:37 | PC.NURSE ---
1620 - tracelet @ 10 1635- tracelet @ 8 1650 - tracelet @ 8 1705 - tracelet @ 4 1720 - tracelet @ 2 1735 - tracelet removed No s/s of active bleeding observed. Telfa and tegaderm dressing placed on site. 1809 - Reviewed post cath radial site education w/ patient. Pt verbalized understanding stating that she has had a heart cath in the past. Area around dressing visualized prior to discharge w/ no s/s of active bleeding, site soft. Pt taken downstairs to meet family via wheelchair by nursing staff, pt wearing surgical mask while in building.
== END 2019-09-05 18:20 | disposition home or self-care (01) | DRG 281 ==
LOC: ER 23:04 → 2ND 09-04 00:33
PROVIDERS: Internal Medicine; Physician Assistant; Admitting Provider Family Medicine; Emergency Provider Emergency Medicine; PCP Internal Medicine Adolescent Medicine; Visit Provider Internal Medicine Adolescent Medicine
PROC: 4A023N7 Measurement of Cardiac Sampling and Pressure, Left Heart, Percutaneous Approach (ICD-10-PCS; principal; 2019-09-05 12:45)
DX: I21.4 Non-ST elevation (NSTEMI) myocardial infarction (principal); J44.1 Chronic obstructive pulmonary disease with (acute) exacerbation; I10 Essential (primary) hypertension; Z95.5 Presence of coronary angioplasty implant and graft; I25.2 Old myocardial infarction; Z72.0 Tobacco use; Z79.01 Long term (current) use of anticoagulants; Z79.51 Long term (current) use of inhaled steroids; Z79.82 Long term (current) use of aspirin; Z79.899 Other long term (current) drug therapy; I65.23 Occlusion and stenosis of bilateral carotid arteries; I25.118 Atherosclerotic heart disease of native coronary artery with other forms of angina pectoris
CPT/HCPCS: 36415; 71045; 80048; 80061; 82550; 82553; 84484; 85007; 85025; 87070; 87077; 87186; 87205; 93005; 93306; 93458; 94640; 94761; 96372; 96374; 96375; 99152; 99284; C1725; C1769; J1644; Q9967

== ENCOUNTER → 2019-11-04 10:03 | Outpatient (CLI) | payer MEDICARE, SELFPAY ==
--- NOTE | 2019-11-04 10:13 | CA_ITS ---
APPROVED REPORT Sleeve [place]eller: Heather Cotton RVT Laterality: Bilateral Study Quality: Excellent Indications: Carotid stenosis Risk Factors Smoking CAD Surgery/Intervention Carotid Stent: right Doppler Spectral Velocity Analysis ECA (R) 102.40/20.20 cm/s ECA (L) 103.30/12.00 cm/s dICA (R) 99.80/39.10 cm/s dICA (L) 88.10/29.10 cm/s [place] (R) 103.70/41.10 cm/s Purvi (L) 98.30/35.40 cm/s pICA (R) 84.80/30.00 cm/s pICA (L) 96.70/33.00 cm/s dCCA (R) 62.40/19.20 cm/s dCCA (L) 58.40/19.20 cm/s pCCA (R) 57.30/12.40 cm/s pCCA (L) 65.10/15.30 cm/s Vert (R) 32.60/9.80 cm/s Vert (L) 41.30/15.30 cm/s ICA/CCA 1.66 ICA/CCA 1.68 Conclusion Study suggests less than 20% stenosis of the right internal cartoid artery unchanged from the 07/09/18 study. Study suggests 20-49% stenosis of the left internal cartoid artery unchanged from the 07/09/18 study. Antegrade flow seen bilateral vertebral arteries. Electronically signed by : Amarjit Jean MD 11/04/2019 17:43:23
== END ==
PROVIDERS: PCP Internal Medicine Adolescent Medicine; Visit Provider Internal Medicine
DX: R42 Dizziness and giddiness (principal); R20.2 Paresthesia of skin; I65.23 Occlusion and stenosis of bilateral carotid arteries; I25.10 Atherosclerotic heart disease of native coronary artery without angina pectoris; I10 Essential (primary) hypertension; E78.5 Hyperlipidemia, unspecified; F17.200 Nicotine dependence, unspecified, uncomplicated; Z95.5 Presence of coronary angioplasty implant and graft
CPT/HCPCS: 93880

== ENCOUNTER → 2020-01-09 14:15 | Outpatient (CLI) | payer MEDICARE, SELFPAY ==
--- NOTE | 2020-01-09 14:19 | US_ITS ---
PROCEDURE: US BREAST RT COMPLETE CLINICAL INDICATION: SCREENING COMPARISON: US US BREAST RT COMPLETE from 01/20/2019 US US BREAST LT COMPLETE from 01/20/2019 MG MM DIG MAMM BI DX W/CAD from 02/02/2019 US US BREAST LT COMPLETE from 01/09/2020 FINDINGS: Right breast ultrasound: At 1 o'clock there is an area of calcification. There is some posterior acoustical shadowing at this region. Cannot exclude a nodule at this area at 4 mm. At 3 o'clock there is a 4 mm hypoechoic nodule suggesting a small cyst not significantly changed. At 9 o'clock near the nipple there is a 14 x 10 mm area of heterogeneous echogenicity possibly due to fibrocystic changes. There is however some posterior acoustical shadowing at this area. This is somewhat similar when compared to the previous exam. Ductal ectasia noted in the retroareolar region. Recommend diagnostic mammogram for further evaluation. Six-month follow-up was recommended on the previous mammogram 02/02/2019. That has not been performed at this institution. Left breast ultrasound: Ductal ectasia is present in the retroareolar region. There is a complicated cyst at 3 o'clock measuring 8 mm not significantly changed. At 12 o'clock there is a 4 mm cyst not significantly changed. IMPRESSION: BI-RADS category 0 incomplete Recommend bilateral diagnostic mammogram Dictated by: Amarjit Jean MD 01/18/2020 08:31 Amarjit Jean MD in [facility] 01/18/2020 08:31
== END ==
PROVIDERS: PCP Internal Medicine Adolescent Medicine; Visit Provider Internal Medicine Adolescent Medicine
DX: R92.8 Other abnormal and inconclusive findings on diagnostic imaging of breast (principal)
CPT/HCPCS: 76641

== ENCOUNTER 2020-01-09 19:13 | Emergency (ER) | payer MEDICARE, SELFPAY ==
[2020-01-09 19:14] VITALS: BMI 26.6
--- NOTE | 2020-01-09 19:15 | XR_ITS ---
PROCEDURE: XR FOREARM LT 2V CLINICAL INDICATION: fall Posttraumatic pain COMPARISON: No exams were available for comparison FINDINGS: No fracture or dislocation. No lytic or blastic change. There is normal mineralization. The joint spaces are well-preserved. No significant degenerative/arthritic changes. No erosive changes evident. Other findings:None. IMPRESSION: No acute findings. Dictated by: Amarjit Jean MD 01/10/2020 05:51 Amarjit Jean MD in [facility] 01/10/2020 05:51
--- NOTE | 2020-01-09 19:15 | XR_ITS ---
PROCEDURE: XR WRIST LT 2V CLINICAL INDICATION: fall Posttraumatic pain COMPARISON: No exams were available for comparison FINDINGS: Two views are submitted. There is a transverse area of increased density overlying the mid aspect of the scaphoid. While this could be due to summation artifact, 1 cannot exclude the possibility of a nondisplaced fracture. Scaphoid views may provide further evaluation if clinically warranted. Otherwise negative IMPRESSION: There is a transverse area of increased density overlying the mid aspect of the scaphoid. While this could be due to summation artifact, cannot exclude the possibility of a nondisplaced fracture. Scaphoid views may provide further evaluation if clinically warranted. Otherwise negative Dictated by: Amarjit Jean MD 01/10/2020 05:46 Amarjit Jean MD in [facility] 01/10/2020 05:46
--- NOTE | 2020-01-09 19:15 | XR_ITS ---
PROCEDURE: XR CHEST PORTABLE CLINICAL HISTORY: fall Posttraumatic pain COMPARISON: CR CXR2V XR chest 2V from 06/04/2018 CR XR CHEST 2V from 12/13/2018 CR XR CHEST PORTABLE from 09/03/2019 FINDINGS: Mild cardiomegaly without failure. Fibrotic change in the left midlung. The remaining lungs are clear. Comminuted fracture involves the neck of the humerus with mild lateral displacement of the distal fracture fragment IMPRESSION: 1. Cardiomegaly with left midlung fibrotic change 2. Comminuted fracture proximal humerus on the left Dictated by: Amarjit Jean MD 01/10/2020 05:57 Amarjit Jean MD in [facility] 01/10/2020 05:57
--- NOTE | 2020-01-09 19:15 | XR_ITS ---
PROCEDURE: XR SHOULDER LT MIN 2V CLINICAL INDICATION: fall Posttraumatic pain COMPARISON: No exams were available for comparison FINDINGS: Comminuted fracture involves the both the anatomic neck and surgical neck of the humerus. There is mild lateral displacement of the distal fracture fragment at the surgical neck and minimal impaction of the fracture fragments at the anatomical neck. The humeral head is located. IMPRESSION: Comminuted fracture at the anatomic and surgical neck of the humerus with mild displacement Dictated by: Amarjit Jean MD 01/10/2020 05:54 Amarjit Jean MD in [facility] 01/10/2020 05:54
--- NOTE | 2020-01-09 19:15 | XR_ITS ---
PROCEDURE: XR PELVIS 1-2V CLINICAL INDICATION: fall Posttraumatic pain COMPARISON: No exams were available for comparison TECHNIQUE: XR Pelvis AP View FINDINGS: No fracture or dislocation is evident. No significant degenerative change. No lytic or blastic change. IMPRESSION: No acute findings. Dictated by: Amarjit Jean MD 01/10/2020 05:55 Amarjit Jean MD in [facility] 01/10/2020 05:55
[2020-01-09 19:17] VITALS: BP 123/76; PULSE 67; RESP 16; TEMP 36.7; O2SAT 98; BMI 26.6
[2020-01-09 19:24] LABS: Basophils # 0.1 K/mm3 (0-0.2); Basophils % 1.1 % (0.1-2.0); Eosinophils # 0.2 K/mm3 (0.0-0.4); Eosinophils % 2.5 % (0.1-12.0); Hematocrit 45.6 % (37.0-47.0); Hemoglobin 14.6 g/dL (12.2-16.2); Lymphocytes # 1.7 K/mm3 (0.7-4.5); Mean Corpuscular Hemoglobin 33.5 pg (27.0-31.2); Mean Corpuscular Volume 104.7 fl (81-99); Mean Platelet Volume 7.1 fl (7.4-10.4); Monocytes # 0.5 K/mm3 (0.1-1.0); Monocytes % 6.1 % (1.7-9.3); Neutrophils # 5.7 K/mm3 (1.8-7.8); Neutrophils % 69.4 % (37.0-80.0); Platelet Count 178 K/mm3 (142-424); Red Blood Count 4.36 M/mm3 (4.20-5.40); Red Cell Distribution Width 14.1 % (11.5-17.5); White Blood Count 8.2 K/mm3 (4.8-10.8)
--- NOTE | 2020-01-09 19:24 | HMH.EDFALL ---
ED Disposition Condition on Discharge: Good - Critical Care Critical Care Time: No <ConorericaNehemiah quiñones - Last Filed: 01/09/20 19:51> <Anish Duran - Last Filed: 01/09/20 20:51> Clinical Impression: Comminuted fracture of left humerus Qualifiers: Encounter type: initial encounter Humerus Location: supracondylar fracture without intercondylar fracture Fracture type: closed Fracture alignment: nondisplaced Qualified Code(s): S42.425A - Nondisplaced comminuted supracondylar fracture without intercondylar fracture of left humerus, initial encounter for closed fracture Disposition: Home, Self-Care Instructions: DI for Shoulder Fracture Additional Instructions: call pcp and ortho in am Referrals: Red Koehler MD [Primary Care Provider] - Theresa Rogers MD [Physician] - Attestation: On 01/09/20, the high probability of a clinically significant, sudden or life threatening deterioration of the following system(s) required my full and direct attention, intervention and personal management. The time I documented below is in addition to time spent performing reported procedures but includes the following listed in this critical care notation. Medical Decision Making - Medical Records Medical records reviewed: Yes: I reviewed the patient's medical records. - Jose Elias Inquiry Pt receiving controlled substance: No - Lab Data Result diagrams: 01/09/20 19:14 01/09/20 19:14 <Nehemiah Rivers - Last Filed: 01/09/20 19:51> - Lab Data Lab results reviewed: Yes: I reviewed the patient's lab results. Result diagrams: 01/09/20 19:14 01/09/20 19:14 - Radiology Data #1 Image(s): Chest, Shoulder, Forearm, Hand, Pelvis Image Reviewed: Yes I reviewed the patient's radiology image Preliminary Findings: Abnormal (humeral fx ) <Anish Duran - Last Filed: 01/09/20 20:51> Vital Signs: 01/09/20 19:17 01/09/20 20:09 Temperature 98.0 F Temperature Source Oral Pulse Rate [Right Brachial] 67 69 Respiratory Rate 16 18 Blood Pressure [Right Arm] 123/76 126/75 Blood Pressure Mean [Right Arm] 91 92 Blood Pressure Source [Right Arm] Automatic Cuff Blood Pressure Position [Right Arm] Sitting 02 Sat by Pulse Oximetry 98 96 Oxygen Delivery Method Room Air Room Air - Lab Data Lab Results 01/09/20 19:14: WBC 8.2, RBC 4.36, Hgb 14.6, Hct 45.6, MCV 104.7 H, MCH 33.5 H, MCHC 32.0, RDW 14.1, Plt Count 178, MPV 7.1 L, Neut % (Auto) 69.4, Lymph % (Auto) 21.0, [place] % (Auto) 6.1, Eos % (Auto) 2.5, Baso % (Auto) 1.1, Neut # (Auto) 5.7, Lymph # (Auto) 1.7, [place] # (Auto) 0.5, Eos # (Auto) 0.2, Baso # (Auto) 0.1 01/09/20 19:14: Sodium 139, Potassium 4.8, Chloride 100, Carbon Dioxide 35 H, Anion Gap 8.8, BUN 16, Creatinine 0.80, Estimated Creat Clear 67, Estimated GFR 71, Est GFR ( Amer) 86, Glucose 122 H, Calcium 8.9, Total Bilirubin 0.3, AST 26, ALT 14, Alkaline Phosphatase 68, Total Protein 6.4, Albumin 3.5, Globulin 2.9, Albumin/Globulin Ratio 1.2 Orders (Tests/Meds): ED MEDICATIONS Discontinued Medications Generic Name Dose Route Start Last Admin Trade Name Freq PRN Reason Stop Dose Admin Morphine Sulfate 4 mg 01/09/20 19:28 01/09/20 20:10 Morphine 4mg/Ml Syringe IV 01/09/20 19:29 4 mg ONCE ONE Administration Ondansetron HCl 4 mg 01/09/20 19:28 01/09/20 20:10 Zofran 4mg/2ml Vial IV 01/09/20 19:29 4 mg ONCE ONE Administration ORDERS Category Date Time Status Wrist XR left 2 views [XR wrist LT 2V] Stat Exams 01/09/20 19:15 Taken XR chest portable Stat Exams 01/09/20 19:15 Taken XR forearm LT 2V Stat Exams 01/09/20 19:15 Taken XR pelvis 1-2V Stat Exams 01/09/20 19:15 Taken XR shoulder LT min 2V Stat Exams 01/09/20 19:15 Taken Medical Decision Narrative: This is a 69-year-old female presented to the emergency department with left shoulder pain. Patient sustained accidental fall. Does not meet imaging criteria for the head or cervical spine. Work-up
[2020-01-09 19:36] LABS: Chloride 100 mmol/L (98-107); Potassium 4.8 mmoL/L (3.5-5.1); Sodium 139 mmol/L (136-145)
[2020-01-09 19:38] LABS: Alanine Aminotransferase 14 U/L (12-78); Blood Urea Nitrogen 16 mg/dl (7-17); Creatinine Clearance Estimated 67 mL/min (50-200); Estimated Glomerular Filt Rate 71 ml/min (>60); GFR (African American) 86 ML/MIN (>60)
[2020-01-09 19:39] LABS: Albumin Level 3.5 g/dl (3.5-5.0); Albumin/Globulin Ratio 1.2 (1.1-1.8); Alkaline Phosphatase 68 U/L (38-126); Anion Gap 8.8 mEq/L (5-15); Aspartate Amino Transferase 26 U/L (14-36); Bilirubin,Total 0.3 mg/dl (0.2-1.3); Calcium 8.9 mg/dl (8.4-10.2); Carbon Dioxide 35 mmol/L (22.0-30.0); Globulin 2.9 g/dL (1.3-3.2); Glucose 122 mg/dl (74-100); Total Protein,Serum 6.4 g/dl (6.3-8.2)
[2020-01-09 20:09] VITALS: BP 126/75; PULSE 69; RESP 18; O2SAT 96
--- NOTE | 2020-01-09 20:33 | PC.NURSE ---
pt placed in sling. at bedside. discussed plan of care and informed them the md would be in soon. removed rings from left hand due to possible swelling and given to .
[2020-01-09 20:41] VITALS: BP 104/62; PULSE 61; RESP 18; O2SAT 90
[2020-01-09 20:59] VITALS: BP 104/68; PULSE 80; RESP 16; TEMP 36.7; O2SAT 98
== END 2020-01-09 21:03 | disposition home or self-care (01) ==
PROVIDERS: Emergency Provider Emergency Medicine; PCP Internal Medicine Adolescent Medicine
DX: S42.302A Unspecified fracture of shaft of humerus, left arm, initial encounter for closed fracture (principal); F41.8 Other specified anxiety disorders; I10 Essential (primary) hypertension; I25.2 Old myocardial infarction; E78.5 Hyperlipidemia, unspecified; F17.210 Nicotine dependence, cigarettes, uncomplicated; R92.8 Other abnormal and inconclusive findings on diagnostic imaging of breast
CPT/HCPCS: 71045; 72170; 73030; 73090; 73100; 76641; 80053; 85025; 96365; 96375; 99283; 99284; J2405

== ENCOUNTER → 2020-01-24 18:10 | Outpatient (CLI) | payer MEDICARE, SELFPAY ==
[2020-01-24 18:20] LABS: Basophils % 0.2 % (0.1-2.0); Eosinophils % 0.2 % (0.1-12.0); Hematocrit 40.3 % (37.0-47.0); Hemoglobin 12.2 g/dL (12.2-16.2); Lymphocytes # 1.4 K/mm3 (0.7-4.5); Lymphocytes % 8.8 % (10-50); Mean Corpuscular HGB Conc 30.1 g/dL (31.8-35.4); Mean Corpuscular Hemoglobin 31.5 pg (27.0-31.2); Mean Corpuscular Volume 104.4 fl (81-99); Mean Platelet Volume 8.5 fl (7.4-10.4); Monocytes # 1.3 K/mm3 (0.1-1.0); Monocytes % 8.2 % (1.7-9.3); Neutrophils % 82.7 % (37.0-80.0); Platelet Count 267 K/mm3 (142-424); Red Blood Count 3.86 M/mm3 (4.20-5.40); Red Cell Distribution Width 16.4 % (11.5-17.5); White Blood Count 15.7 K/mm3 (4.8-10.8)
[2020-01-24 18:24] LABS: MANUAL DIFFERENTIAL MANUAL DIFFERENTIAL (MANUAL DIFF)
[2020-01-24 18:27] LABS: Chloride 96 mmol/L (98-107)
[2020-01-24 18:28] LABS: Potassium 4.2 mmoL/L (3.5-5.1); Sodium 136 mmol/L (136-145)
[2020-01-24 18:30] LABS: Alanine Aminotransferase 16 U/L (12-78); Alkaline Phosphatase 98 U/L (38-126); Anion Gap 12.2 mEq/L (5-15); Aspartate Amino Transferase 34 U/L (14-36); Bilirubin,Total 2.5 mg/dl (0.2-1.3); Blood Urea Nitrogen 32 mg/dl (7-17); Calcium 9.3 mg/dl (8.4-10.2); Carbon Dioxide 32 mmol/L (22.0-30.0); Estimated Glomerular Filt Rate 71 ml/min (>60); GFR (African American) 86 ML/MIN (>60); Glucose 119 mg/dl (74-100)
[2020-01-24 18:31] LABS: Albumin Level 3.4 g/dl (3.5-5.0); Albumin/Globulin Ratio 1.1 (1.1-1.8); Globulin 3.2 g/dL (1.3-3.2); Total Protein,Serum 6.6 g/dl (6.3-8.2)
[2020-01-24 18:58] LABS: Hypochromasia 1+; Lymphocytes % 7 % (10-50); Macrocytosis 1+; Monocytes % 8 % (2-9); Neutrophils % 85 % (42-76); Nucleated Red Blood Cells 2; Platelet Estimate Normal; RBC Morphology Normal; Total Cells Counted 100
== END ==
PROVIDERS: Visit Provider Internal Medicine Adolescent Medicine
DX: R60.9 Edema, unspecified (principal)
CPT/HCPCS: 80053; 85007; 85025